=== PATIENT | male | born 1940 | race Caucasian/White ===

== ENCOUNTER 2021-02-09 15:43 | Day surgery (SDC) | payer MEDICARE, SELFPAY ==
[2021-02-09] VITALS (10 sets, daily range): BP systolic 130–184; BP diastolic 60–130; PULSE 74–90; RESP 14–18; TEMP 37.1–37.4; O2SAT 94–99
--- NOTE | 2021-02-09 16:05 | US_ITS ---
WS: [id number] ABDOMINAL ULTRASOUND LIMITED REASON FOR VISIT: hernia TECHNIQUE: Grayscale ultrasound examination of supraumbilical hernia. FINDINGS: 2 cm defect in the anterior abdominal wall. Presumed herniation of bowel through the defect. There is fluid in the hernia sac and the bowel is aperistaltic and very inhomogeneous in appearance. US/US abdomen limited [id number] IMPRESSION: Anterior abdominal hernia as above. The findings are very suggestive of comprom ise of the bowel contained within the hernia sac.
--- NOTE | 2021-02-09 16:46 | XR_ITS ---
WS: [id number] XR chest 1V portable [id number] REASON FOR EXAM: incarcerated hernia FINDINGS: The heart and mediastinum are within normal limits. Calcified granulomatous changes are seen bilaterally. No active pulmonary parenchymal or pleural disease. The bony thorax is intact. XR/XR chest 1V portable [id number] IMPRESSION: No acute chest abnormality.
--- NOTE | 2021-02-09 16:55 | W.ED.ABDPA2 ---
Documented by User: VENTURA Maria 02/09/21 16:57 HPI - Abdominal Pain General: Chief Complaint: Abdominal Pain Stated Complaint: HERNIA COMPLICATIONS Time Seen by Provider: 02/09/21 16:55 History of Present Illness: HPI narrative: Patient presents with pain above his umbilicus. Patient was seen by PCP today for hernia that was painful was sent to see Dr. Artie Alva was unable to reduce the hernia and was sent here for follow-up MD elicited complaint: abdominal pain Pertinent past history: none Onset (ago): day(s) Pain Consistency: constant Location: Other (Above the umbilicus) Severity: moderate Pain scale (0-10): 4 Quality: aching and sharp Radiation: none Associated Symptoms: Reports no associated symptoms; Denies chills, fever(s), nausea and vomiting Review of Systems Const: Denies: fever(s), chills or body aches Eyes: Denies: change in vision or blurry vision ENMT: Denies: throat pain or nasal congestion Card: Denies: chest pain or dyspnea on exertion Resp: Denies: dyspnea, productive cough or non-productive cough GI: Reports: other (Pain from hernia above his umbilicus); Denies: abdominal pain, nausea or vomiting : Denies: difficulty urinating Musc: Denies: extremity pain Skin/Breast: Denies: rash Neuro: Denies: headache(s) Psych: Denies: anxiety or depression Agustin/Lymph: Denies: easy bruising PFSH ED PFSH: Medical History Anxiety Benign prostatic hyperplasia with urinary retention GERD (gastroesophageal reflux disease) Hypertension Rheumatoid arthritis Surgical History Heel fracture bilateral from fall -- bilateral repair with hardware History of oral surgery teeth extraction History of tonsillectomy Social History Smoking and tobacco status: never smoked Alcohol intake: never Substance/Drug Use: never Marital status: / Marital status details: The patient's spouse around 2014 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 Physical Exam Const: COMMON NORMALS: no acute distress, average body habitus and patient oriented x3 HENMT: COMMON NORMALS: normocephalic HEAD & SCALP: normal to inspection and normocephalic FACE & SINUS: normal facial exam Eye: COMMON NORMALS: conjunctivae normal GENERAL EYE: appearance normal, both eyes and all related structures CONJUNCTIVA: Yes conjunctivae normal Neck/C-Spine: COMMON NORMALS: no JVD Chest: COMMONS NORMALS: normal inspection of the chest Resp: COMMON NORMALS: normal respiratory effort and clear to auscultation bilaterally AUSCULTATION: clear to auscultation bilaterally Cardio: COMMON NORMALS: no JVD, regular rate and regular rhythm RATE: regular rate RHYTHM: regular rhythm GI: PALPATION: Yes Tenderness to palpation present (GI) (Tender red area above umbilicus moderate sized hernia) and Yes Other GI palpation findings present (Hernia was not able to be reduced by Dr. Alva sent here) Extremity: COMMON NORMALS: normal to inspection and full ROM Neuro: COMMON NORMALS: patient oriented x3 Course Vital Signs: Vital signs: Vital Signs Temperature 98.7 F 02/09/21 20:53 Pulse Rate 81 02/09/21 20:53 Respiratory Rate 16 02/09/21 20:53 Blood Pressure 144/68 02/09/21 20:53 Pulse Oximetry 95 02/09/21 20:53 MDM - Abdominal Pain Lab Data: Labs: Lab Results 02/09/21 02/09/21 02/09/21 Range/Units 17:00 17:00 17:00 WBC 9.2 (4.0-10.0) 10^3/ uL RBC 4.95 (4.1-5.3) 10^6/u L Hgb 15.1 (11.7-16.6) g/dL Hct 45.3 (42.0-52.0) % MCV 91.5 (80-94) fL MCH 30.5 (28.0-34.0) pg MCHC 33.3 (30.0-36.0) g/dL RDW 12.2 (12.1-15.1) % Plt Count 160 (130-400) 10^3/c mm MPV 9.7 (7.4-10.4) fL Neut % (Auto) 80.3 % Lymph % (Auto) 10.3 % Blaine % (Auto) 6.4 % Eos % (Auto) 2.4 % Baso % (Auto) 0.3 % Neut # (Auto) 7.36 (1.8-7.7) 10^3/u L Lymph # (Auto) 1.0 (0.8-4.8) 10^3/u L Blaine # (Auto) 0.6 (0.2-0.9) 10^3/u L Eos # (Auto) 0.2 (0.0-0.8) 10^3/u L Baso # (Auto) 0.0 (0.0-0.1) 10^3/u L Nucleated RBC % (a uto) 0 % Nucleated RBCs # 0.0 /100WBC PT 13.10 (12.1-14.9) SECO NDS INR 0.96 (0.8-1.2) Sodium 135 L (136-145) mmol/L Potassium 3.8 (3.5-5.1) mmol/L Chloride 100 (98-107) mmol/L Carbon Dioxide 25 (22-29) mmol/L Anion Gap 13.8 (5-19) BUN 19 (8-23) mg/dL Creatinine 1.1 (0.7-1.2) mg/dL GFR Calculation Not Reportable Glucose 108 (65-115) mg/dL Calculated Osmolal ity 283 L (285-295) mOsm/k g Calcium 9.3 (8.5-10.5) mg/dL Total Bilirubin 0.8 (0.15-1.2) mg/dL AST 19 (0-40) U/L ALT 11 (0-41) U/L Alkaline Phosphata se 104 (40-130) IU/L Total Protein 7.6 (6.6-8.7) g/dL Albumin 4.3 (3.5-5.2) g/dL Globulin 3.3 (1.3-4.6) g/dL Urine Color (Yellow) Urine Appearance (CLEAR) Urine pH (5-7) Ur Specific Gravit y (1.005-1.030) Urine Protein (Negative) Urine Glucose (UA) (Normal) Urine Ketones (Negative) Urine Blood (Negative) Urine Nitrate (Negative) Urine Bilirubin (Negative) Urine Urobilinogen (Negative) mg/dL Ur Leukocyte Sanjana ase (Negative) Urine RBC (0-2) /hpf Urine WBC (0-5) /hpf Ur Squamous Epith Cells (0-5) /hpf Amorphous Sediment Urine Bacteria (NONE) /hpf 02/09/21 Range/Units 17:45 WBC (4.0-10.0) 10^3/ uL RBC (4.1-5.3) 10^6/u L Hgb (11.7-16.6) g/dL Hct (42.0-52.0) % MCV (80-94) fL MCH (28.0-34.0) pg MCHC (30.0-36.0) g/dL RDW (12.1-15.1) % Plt Count (130-400) 10^3/c mm MPV (7.4-10.4) fL Neut % (Auto) % Lymph % (Auto) % Blaine % (Auto) % Eos % (Auto) % Baso % (Auto) % Neut # (Auto) (1.8-7.7) 10^3/u L Lymph # (Auto) (0.8-4.8) 10^3/u L Blaine # (Auto) (0.2-0.9) 10^3/u L Eos # (Auto) (0.0-0.8) 10^3/u L Baso # (Auto) (0.0-0.1) 10^3/u L Nucleated RBC % (a uto) % Nucleated RBCs # /100WBC PT (12.1-14.9) SECO NDS INR (0.8-1.2) Sodium (136-145) mmol/L Potassium (3.5-5.1) mmol/L Chloride (98-107) mmol/L Carbon Dioxide (22-29) mmol/L Anion Gap (5-19) BUN (8-23) mg/dL Creatinine (0.7-1.2) mg/dL GFR Calculation Glucose (65-115) mg/dL Calculated Osmolal ity (285-295) mOsm/k g Calcium (8.5-10.5) mg/dL Total Bilirubin (0.15-1.2) mg/dL AST (0-40) U/L ALT (0-41) U/L Alkaline Phosphata se (40-130) IU/L Total Protein (6.6-8.7) g/dL Albumin (3.5-5.2) g/dL Globulin (1.3-4.6) g/dL Urine Color Yellow (Yellow) Urine Appearance Clear (CLEAR) Urine pH 6 (5-7) Ur Specific Gravit y 1.020 (1.005-1.030) Urine Protein Neg (Negative) Urine Glucose (UA) Norm (Normal) Urine Ketones 1+ H (Negative) Urine Blood Neg (Negative) Urine Nitrate Positive H (Negative) Urine Bilirubin Neg (Negative) Urine Urobilinogen Norm (Negative) mg/dL Ur Leukocyte Sanjana ase Negative (Negative) Urine RBC None (0-2) /hpf Urine WBC 0-4 H (0-5) /hpf Ur Squamous Epith Cells None (0-5) /hpf Amorphous Sediment Not Reportable Urine Bacteria 1+ H (NONE) /hpf Discharge Plan Discharge Patient Disposition: Admitted As Inpatient Condition: Stable Discharge Diet: Advance as tolerated Discharge Activity: Limit activity as instructed Sign Out Sign Out Data: Patient Sign Out occurred on 02/09/21 at 17:08. Patient's care was discussed, and care was transferred from to CONRADO Andre. 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 Comprehensive Documented by User: CONRADO Andre 02/10/21 03:05 HPI - Abdominal Pain General: Chief Complaint: Abdominal Pain Stated Complaint: HERNIA COMPLICATIONS Time Seen by Provider: 02/09/21 16:55 PFSH ED PFSH: Medical History Anxiety Benign prostatic hyperplasia with urinary retention GERD (gastroesophageal reflux disease) Hypertension Rheumatoid arthritis Surgical History Heel fracture bilateral from fall -- bilateral repair with hardware History of oral surgery teeth extraction History of tonsillectomy Social History Smoking and tobacco status: never smoked Alcohol intake: never Substance/Drug Use: never Marital status: / Marital status details: The patient's spouse around 2014 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 Moore to discuss patient case with him since he was seen by him at the clinic today. He told me that this patient walked into the clinic today and there is no scheduled appointment or anything set up with him. He was not notified by the PCP of patient coming in either. He examined patient and told him that he needs to be here in the ED because he is suspicious of an incarcerated umbilical hernia. Patient was sent here to the ED for further evaluation. Time: 18:09 Consultation #2: I contacted Dr. Soto the on-call general surgeon and told him about patient case. He accepted admission of patient and will be coming here to the ED to evaluate patient. Time: 18:16 Vital Signs: Vital signs: Vital Signs Temperature 98.7 F 02/09/21 20:53 Pulse Rate 81 02/09/21 20:53 Respiratory Rate 16 02/09/21 20:53 Blood Pressure 144/68 02/09/21 20:53 Pulse Oximetry 95 02/09/21 20:53 MDM - Abdominal Pain MDM Narrative: Medical decision making narrative: Patient is a 80-year-old male comes to the ED with umbilical hernia. Patient was sent here to the ED by Dr. Moore after he was seen at outpatient clinic. Dr. Moore sent patient over to the ED for further evaluation due to possible incarcerated hernia. Vikash is performed the initial history and physical exam. Exam findings showed a tender red umbilical hernia. Ultrasound of abdomen showed an anterior abdominal hernia with findings suggestive of incarceration. I contacted Dr. Soto and told about patient case. He then accepted admission of patient and will be taking him to surgery today. Lab Data: Attestation: I reviewed the patient's lab results. Labs: Lab Results 02/09/21 02/09/21 02/09/21 Range/Units 17:00 17:00 17:00 WBC 9.2 (4.0-10.0) 10^3/ uL RBC 4.95 (4.1-5.3) 10^6/u L Hgb 15.1 (11.7-16.6) g/dL Hct 45.3 (42.0-52.0) % MCV 91.5 (80-94) fL MCH 30.5 (28.0-34.0) pg MCHC 33.3 (30.0-36.0) g/dL RDW 12.2 (12.1-15.1) % Plt Count 160 (130-400) 10^3/c mm MPV 9.7 (7.4-10.4) fL Neut % (Auto) 80.3 % Lymph % (Auto) 10.3 % Blaine % (Auto) 6.4 % Eos % (Auto) 2.4 % Baso % (Auto) 0.3 % Neut # (Auto) 7.36 (1.8-7.7) 10^3/u L Lymph # (Auto) 1.0 (0.8-4.8) 10^3/u L Blaine # (Auto) 0.6 (0.2-0.9) 10^3/u L Eos # (Auto) 0.2 (0.0-0.8) 10^3/u L Baso # (Auto) 0.0 (0.0-0.1) 10^3/u L Nucleated RBC % (a uto) 0 % Nucleated RBCs # 0.0 /100WBC PT 13.10 (12.1-14.9) SECO NDS INR 0.96 (0.8-1.2) Sodium 135 L (136-145) mmol/L Potassium 3.8 (3.5-5.1) mmol/L Chloride 100 (98-107) mmol/L Carbon Dioxide 25 (22-29) mmol/L Anion Gap 13.8 (5-19) BUN 19 (8-23) mg/dL Creatinine 1.1 (0.7-1.2) mg/dL GFR Calculation Not Reportable Glucose 108 (65-115) mg/dL Calculated Osmolal ity 283 L (285-295) mOsm/k g Calcium 9.3 (8.5-10.5) mg/dL Total Bilirubin 0.8 (0.15-1.2) mg/dL AST 19 (0-40) U/L ALT 11 (0-41) U/L Alkaline Phosphata se 104 (40-130) IU/L Total Protein 7.6 (6.6-8.7) g/dL Albumin 4.3 (3.5-5.2) g/dL Globulin 3.3 (1.3-4.6) g/dL Urine Color (Yellow) Urine Appearance (CLEAR) Urine pH (5-7) Ur Specific Gravit y (1.005-1.030) Urine Protein (Negative) Urine Glucose (UA) (Normal) Urine Ketones (Negative) Urine Blood (Negative) Urine Nitrate (Negative) Urine Bilirubin (Negative) Urine Urobilinogen (Negative) mg/dL Ur Leukocyte Sanjana ase (Negative) Urine RBC (0-2) /hpf Urine WBC (0-5) /hpf Ur Squamous Epith Cells (0-5) /hpf Amorphous Sediment Urine Bacteria (NONE) /hpf 02/09/21 Range/Units 17:45 WBC (4.0-10.0) 10^3/ uL RBC (4.1-5.3) 10^6/u L Hgb (11.7-16.6) g/dL Hct (42.0-52.0) % MCV (80-94) fL MCH (28.0-34.0) pg MCHC (30.0-36.0) g/dL RDW (12.1-15.1) % Plt Count (130-400) 10^3/c mm MPV (7.4-10.4) fL Neut % (Auto) % Lymph % (Auto) % Blaine % (Auto) % Eos % (Auto) % Baso % (Auto) % Neut # (Auto) (1.8-7.7) 10^3/u L Lymph # (Auto) (0.8-4.8) 10^3/u L Blaine # (Auto) (0.2-0.9) 10^3/u L Eos # (Auto) (0.0-0.8) 10^3/u L Baso # (Auto) (0.0-0.1) 10^3/u L Nucleated RBC % (a uto) % Nucleated RBCs # /100WBC PT (12.1-14.9) SECO NDS INR (0.8-1.2) Sodium (136-145) mmol/L Potassium (3.5-5.1) mmol/L Chloride (98-107) mmol/L Carbon Dioxide (22-29) mmol/L Anion Gap (5-19) BUN (8-23) mg/dL Creatinine (0.7-1.2) mg/dL GFR Calculation Glucose (65-115) mg/dL Calculated Osmolal ity (285-295) mOsm/k g Calcium (8.5-10.5) mg/dL Total Bilirubin (0.15-1.2) mg/dL AST (0-40) U/L ALT (0-41) U/L Alkaline Phosphata se (40-130) IU/L Total Protein (6.6-8.7) g/dL Albumin (3.5-5.2) g/dL Globulin (1.3-4.6) g/dL Urine Color Yellow (Yellow) Urine Appearance Clear (CLEAR) Urine pH 6 (5-7) Ur Specific Gravit y 1.020 (1.005-1.030) Urine Protein Neg (Negative) Urine Glucose (UA) Norm (Normal) Urine Ketones 1+ H (Negative) Urine Blood Neg (Negative) Urine Nitrate Positive H (Negative) Urine Bilirubin Neg (Negative) Urine Urobilinogen Norm (Negative) mg/dL Ur Leukocyte Sanjana ase Negative (Negative) Urine RBC None (0-2) /hpf Urine WBC 0-4 H (0-5) /hpf Ur Squamous Epith Cells None (0-5) /hpf Amorphous Sediment Not Reportable Urine Bacteria 1+ H (NONE) /hpf Imaging Data ^: US: Attestation: I personally reviewed and interpreted this imaging study as follows: Radiologist's impression: [address] [address] Ultrasound Report Signed Patient: Deric Chavez Unit #: [id number] : 1940 Age/Sex: 80 / M ADM Date: 02/09/21 Loc: ER Room/Bed: Attending Dr: Ordering Provider/Ordering MD: Brian Suh , [facility] Date of Service: 02/09/21 Procedure(s): US abdomen limited 13890 Accession Number(s): [id number] Report Number: [id number] WS: [id number] ABDOMINAL ULTRASOUND LIMITED REASON FOR VISIT: hernia TECHNIQUE: Grayscale ultrasound examination of supraumbilical hernia. FINDINGS: 2 cm defect in the anterior abdominal wall. Presumed herniation of bowel through the defect. There is fluid in the hernia sac and the bowel is aperistaltic and very inhomogeneous in appearance. US/US abdomen limited [id number] IMPRESSION: Anterior abdominal hernia as above. The findings are very suggestive of compromise of the bowel contained within the hernia sac. Dictated By: Jimbo Smith Jr, MD Signed By: Jimbo Smith Jr, MD Signed Date/Time: 02/09/21 1631 DD/ 1625 Discharge Plan Discharge Patient Disposition: Admitted As Inpatient Condition: Stable Discharge Diet: Advance as tolerated Discharge Activity: Limit activity as instructed Sign Out Sign Out Data: Patient Sign Out occurred on 02/09/21 at 17:08. Patient's care was discussed, and care was transferred from to CONRADO Andre. 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
[2021-02-09 17:07] LABS: Basophils % 0.3 %; Eosinophils # 0.2 10^3/uL (0.0-0.8); Eosinophils % 2.4 %; Hematocrit 45.3 % (42.0-52.0); Hemoglobin 15.1 g/dL (11.7-16.6); Lymphocytes % 10.3 %; Mean Corpuscular HGB Conc 33.3 g/dL (30.0-36.0); Mean Corpuscular Hemoglobin 30.5 pg (28.0-34.0); Mean Corpuscular Volume 91.5 fL (80-94); Mean Platelet Volume 9.7 fL (7.4-10.4); Monocytes # 0.6 10^3/uL (0.2-0.9); Monocytes % 6.4 %; Neutrophils # 7.36 10^3/uL (1.8-7.7); Neutrophils % 80.3 %; Nucleated Red Blood Cells % 0 %; Platelet Count 160 10^3/cmm (130-400); Red Blood Count 4.95 10^6/uL (4.1-5.3); Red Cell Distribution Width 12.2 % (12.1-15.1); White Blood Count 9.2 10^3/uL (4.0-10.0)
[2021-02-09 17:28] LABS: INR 0.96 (0.8-1.2)
[2021-02-09 17:33] LABS: Alanine Aminotransferase 11 U/L (0-41); Albumin Level 4.3 g/dL (3.5-5.2); Alkaline Phosphatase 104 IU/L (40-130); Anion Gap 13.8 (5-19); Aspartate Amino Transferase 19 U/L (0-40); Blood Urea Nitrogen 19 mg/dL (8-23); Calcium 9.3 mg/dL (8.5-10.5); Carbon Dioxide 25 mmol/L (22-29); Chloride 100 mmol/L (98-107); Globulin 3.3 g/dL (1.3-4.6); Glucose 108 mg/dL (65-115); Osmolality Calculated 283 mOsm/kg (285-295); Potassium 3.8 mmol/L (3.5-5.1); Sodium 135 mmol/L (136-145); Total Bilirubin 0.8 mg/dL (0.15-1.2); Total Protein 7.6 g/dL (6.6-8.7)
[2021-02-09 18:00] LABS: Add Urine Microscopic? YES; Bilirubin Urine Neg (Negative); Blood Urine Neg (Negative); Glucose Urine UA Norm (Normal); Ketones Urine 1+ (Negative); Leukocyte Esterase Urine Negative (Negative); Nitrate Urine Positive (Negative); Protein Urine Neg (Negative); Urine Appearance Clear (CLEAR); Urine Color Yellow (Yellow); Urobilinogen Urine Norm (Negative); WBC Urine 0-4 /hpf (0-5); pH Urine 6 (5-7)
[2021-02-09 18:01] LABS: Bacteria Urine 1+ /hpf
--- NOTE | 2021-02-09 18:37 | PM.HP ---
Providers/Chief Complaint Admitting Physician: General Surgery Carlos Soto MD Primary Care Provider: Zach Byrd MD Chief Complaint: HERNIA COMPLICATIONS History of Present Illness Deric Chavez is a 80 year old male who says he has known about a small hernia above the umbilicus for as long as 50 or 60 years. It has never caused him trouble and it sounds like it was always reducible until recently. He says he has been getting sharp pains in the area over the last couple of weeks. Yesterday he awoke and says that he had a mass there about the size of a chicken egg and it was painful. He had developed some light erythema over the area and had a hard time sleeping last night as a result. He went to see his primary care physician this morning. Dr. Byrd was actually out of town but he says one of his partners saw him and diagnosed him with an incarcerated hernia. The patient went to Dr. Moore's office and attempts at reduction were unsuccessful. The patient was sent to the emergency room and eventually I was called as the surgeon on-call. The emergency room did perform an ultrasound of the area which revealed what they thought was a 2 cm hernia defect in the abdominal wall. The radiologist was concerned that there was bowel within the defect. The patient says that he ate eggs and pollack this morning around 10 AM. He has not had any nausea or vomiting. He had not had a bowel movement for several days but ended up having a bowel movement around midday before going to his PCP's office. He has not had any fevers but felt as if he had some chills at one point. He says he continues to pass flatus. Review of Systems General: Reports: 10 or more systems reviewed and unremarkable except in HPI and below Const: Denies: fever(s) GI: Reports: abdominal pain; Denies: nausea Medications/Allergies Home Medications Medication Instructions Recorded Confirmed Last Taken Type finasteride 5 mg tablet 5 mg PO DAILY #90 tab 06/10/20 02/09/21 02/09/21 Rx Acidophilus 1 tab PO DAILY@0700 02/09/21 02/09/21 Unknown History B-complex with vitamin C [Vitamin 1 tab PO DAILY@0700 02/09/21 02/09/21 02/08/21 History B and C] Bradshaw 3 1 tab PO DAILY@0700 02/09/21 02/09/21 02/08/21 History Vitamin D3 1 tab PO DAILY@0700 02/09/21 02/09/21 02/08/21 History alprazolam 0.25 mg tablet 0.25 mg PO TID PRN 02/09/21 02/09/21 02/08/21 History aspirin 81 mg tablet,delayed 81 mg PO DAILY@0700 02/09/21 02/09/21 02/09/21 History release benazepril 40 mg tablet 40 mg PO DAILY@0700 02/09/21 02/09/21 02/09/21 History folic acid 1 mg tablet 1 mg PO DAILY 02/09/21 02/09/21 Unknown History loratadine 10 mg capsule 10 mg PO DAILY@0700 02/09/21 02/09/21 02/09/21 History magnesium 200 mg tablet 200 mg PO DAILY@0700 02/09/21 02/09/21 02/09/21 History methotrexate 2.5 mg/mL oral See Rx Instructions .ROUTE .COMPLEX 02/09/21 02/09/21 Unknown History solution metoprolol tartrate 50 mg tablet 50 mg PO DAILY@0700 02/09/21 02/09/21 02/09/21 History omeprazole 40 mg capsule,delayed 40 mg PO DAILY@0700 02/09/21 02/09/21 02/09/21 History release tamsulosin 0.4 mg capsule 0.4 mg PO DAILY@0700 02/09/21 02/09/21 02/09/21 History vitamin E 1 tab PO DAILY@0700 02/09/21 02/09/21 02/08/21 History Allergies Allergy/AdvReac Type Severity Reaction Status Date / Time No Known Allergies Allergy Verified 06/10/20 12:04 PFSH Acute PFSH: Medical History (Updated 02/09/21 @ 19:03 by Carlos Soto MD) Anxiety Benign prostatic hyperplasia with urinary retention GERD (gastroesophageal reflux disease) Hypertension Rheumatoid arthritis Surgical History (Updated 02/09/21 @ 19:04 by Carlos Soto MD) Heel fracture bilateral from fall -- bilateral repair with hardware History of oral surgery teeth extraction History of tonsillectomy Social History (Updated 02/09/21 @ 18:41 by Carlos Soto MD) Smoking and tobacco status: never smoked Alcohol intake: never Substance/Drug Use: never Marital status: / Marital status details: The patient's spouse around 2014 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 He does not appear to be in any acute distress and is sitting up in a chair. The pupils seem equal. No carotid bruits are heard. The lungs are clear anteriorly. The heart is regular. The abdomen is mildly obese and reveals a slight protrusion above the umbilicus with a surrounding area of light erythema measuring perhaps 10 cm in greatest diameter. There is a very firm mass underneath the center of this and it is tender to palpation. Bowel sounds do seem present throughout the abdominal cavity. The extremities reveal no edema. Neurologically the patient appears to be grossly intact. Data : 02/09/21 17:00 02/09/21 17:00 US: Radiologist's impression: Ultrasound of abdomen 02/09/2021 FINDINGS: 2 cm defect in the anterior abdominal wall. Presumed herniation of bowel through the defect. There is fluid in the hernia sac and the bowel is aperistaltic and very inhomogeneous in appearance. A&P Assessment and plan (1) Incarcerated ventral hernia: The patient clearly has an incarcerated ventral hernia. It is difficult to know what exactly is in here on examination alone, but the radiologist is somewhat concerned there may be bowel present. The patient does not seem to be obviously obstructed, however. He does have some erythema surrounding the area which may be more of a pressure phenomenon, but an early infection certainly cannot be ruled out. I discussed hernias and hernia reduction and repairs with the patient. Risks of surgery were gone over. He seems to understand and would like to proceed with an urgent reduction and repair of his incarcerated ventral hernia. We have already discussed postoperative activity limitations for up to 6 weeks. Status: Acute Attestations Medical Necessity Statement*: I told the patient that depending upon what is incarcerated in the hernia and what its condition is, it may be possible that we can fix this and even send him home later tonight, which was an attractive option for him. For now, I am going to place him in outpatient status in the event that turns out to be the case. Coding Level of Care Code Acute [employer] for [employer] Diagnoses Incarcerated ventral hernia K43.6
[2021-02-09] MEDS: metroNIDAZOLE IV 500 MG/100 ML PREMIX 100 MG IV (18:47)
--- NOTE | 2021-02-09 19:15 | SUR.OPER ---
1900 2gms ancef finished infusing from ER by Destiny Yeung CRNA. 1914 500MG FLAGYL finished infusing from ER by Destiny Yeung CRNA
--- NOTE | 2021-02-09 19:22 | PC.NURSE ---
Per Dr. Soto stopped IV antibiotics until after surgery.
--- NOTE | 2021-02-09 19:27 | P.ANESASSM_ITS ---
Pre-Anesthetic Assessment Pre-Anesthetic Assessment: Height/Weight: Height 1.68 m Temp Pulse Resp BP Pulse Ox 98.7 F 75 14 167/130 96 02/09/21 15:57 02/09/21 18:50 02/09/21 18:50 02/09/21 18:50 02/09/21 18:50 Proposed Procedure: Operation Date: 02/09/21 18:55 Proposed Procedures p Incisional Hernia Repair(Not Applicable) - Carlos Soto MD Was Beta Susu taken within 24 hours: Yes Was Clonidine taken within 24 hours: N/A Social: Social History: No alcohol and No tobacco Exam: Pre-Anes Outpt Exam: alert, oriented x 3, clear to auscultation bilaterally and regular rate & rhythm Airway: Submandibular: WNL Cervical ROM: WNL MP: 2 Dentition: False CV/HEM: CV/HEM: HTN GI: GI: GERD Comments: Incarcerated hernia Metabolic: Metabolic: Morbid obesity Musc/skel: Musc/skel: Neuropsych: Neuropsych: Anxiety Anesthetic Plan: ASA status: 3E Anesthesia: General (RSI) Risk of > 500 ml blood loss (7ml/kg in children): No Meds/Allergies Current Medications: Current Medications Generic Name Dose Route Start Last Admin Trade Name Freq PRN Reason Stop Dose Admin Cefazolin Sodium/D extrose 2 gm in 50 mls @ 100 mls/hr 02/09/21 19:30 02/09/21 19:08 Kefzol IV 02/09/21 19:59 0 mls/hr CEPHALOMETRIC TRACER ONE Infusion Protocol Metronidazole 500 mg in 100 mls @ 100 mls/hr 02/09/21 19:30 02/09/21 19:08 Flagyl Iv IV 02/09/21 20:29 0 mls/hr CEPHALOMETRIC TRACER ONE Infusion PFSH Anesthesia PFSH: Medical History (Updated 02/09/21 @ 19:03 by Carlos Soto MD) Anxiety Benign prostatic hyperplasia with urinary retention GERD (gastroesophageal reflux disease) Hypertension Rheumatoid arthritis Surgical History (Updated 02/09/21 @ 19:04 by Carlos Soto MD) Heel fracture bilateral from fall -- bilateral repair with hardware History of oral surgery teeth extraction History of tonsillectomy Social History (Updated 02/09/21 @ 18:41 by Carlos Soto MD) Smoking and tobacco status: never smoked Alcohol intake: never Substance/Drug Use: never Marital status: / Marital status details: The patient's spouse around 2014 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 CBC & Chem 7: 02/09/21 17:00 02/09/21 17:00 Other Labs: Laboratory Results - last 48 hr 02/09/21 02/09/21 02/09/21 17:00 17:00 17:00 WBC 9.2 RBC 4.95 Hgb 15.1 Hct 45.3 MCV 91.5 MCH 30.5 MCHC 33.3 RDW 12.2 Plt Count 160 MPV 9.7 Neut % (Auto) 80.3 Lymph % (Auto) 10.3 [place] % (Auto) 6.4 Eos % (Auto) 2.4 Baso % (Auto) 0.3 Neut # (Auto) 7.36 Lymph # (Auto) 1.0 [place] # (Auto) 0.6 Eos # (Auto) 0.2 Baso # (Auto) 0.0 Nucleated RBC % (auto) 0 Nucleated RBCs # 0.0 PT 13.10 INR 0.96 Sodium 135 L Potassium 3.8 Chloride 100 Carbon Dioxide 25 Anion Gap 13.8 BUN 19 Creatinine 1.1 GFR Calculation Not Reportable Glucose 108 Calculated Osmolality 283 L Calcium 9.3 Total Bilirubin 0.8 AST 19 ALT 11 Alkaline Phosphatase 104 Total Protein 7.6 Albumin 4.3 Globulin 3.3 Urine Color Urine Appearance Urine pH Ur Specific [place] Urine Protein Urine Glucose (UA) Urine Ketones Urine Blood Urine Nitrate Urine Bilirubin Urine Urobilinogen Ur Leukocyte Esterase Urine RBC Urine WBC Ur Squamous Epith Cells Amorphous Sediment Urine Bacteria 02/09/21 17:45 WBC RBC Hgb Hct MCV MCH MCHC RDW Plt Count MPV Neut % (Auto) Lymph % (Auto) [place] % (Auto) Eos % (Auto) Baso % (Auto) Neut # (Auto) Lymph # (Auto) [place] # (Auto) Eos # (Auto) Baso # (Auto) Nucleated RBC % (auto) Nucleated RBCs # PT INR Sodium Potassium Chloride Carbon Dioxide Anion Gap BUN Creatinine GFR Calculation Glucose Calculated Osmolality Calcium Total Bilirubin AST ALT Alkaline Phosphatase Total Protein Albumin Globulin Urine Color Yellow Urine Appearance Clear Urine pH 6 Ur Specific [place] 1.020 Urine Protein Neg Urine Glucose (UA) Norm Urine Ketones 1+ H Urine Blood Neg Urine Nitrate Positive H Urine Bilirubin Neg Urine Urobilinogen Norm Ur Leukocyte Esterase Negative Urine RBC None Urine WBC 0-4 H Ur Squamous Epith Cells None Amorphous Sediment Not Reportable Urine Bacteria 1+ H Cardiac Studies: No Data to Display
--- NOTE | 2021-02-09 20:15 | PM.OP ---
Operative Report Date of procedure: February 09, 2021 Pre-op Diagnosis: Incarcerated ventral hernia. Post-op diagnosis: same Procedure Done: Reduction and repair of incarcerated ventral hernia. Specimens removed/disposition: Incarcerated hernia sac contents. Surgeon: Carlos Soto Anesthesia: General Estimated blood loss (mL): 5 Complications: None. Condition: stable Disposition: PACU Procedure: The patient was brought to the operating room and was placed in a supine position on the operating room table. General endotracheal anesthesia was induced. The abdomen was prepped and draped in a sterile fashion. A combination of 1% lidocaine with 1 to 100,000 parts epinephrine and 0.5% bupivacaine was used for local/postoperative anesthesia throughout the procedure. A transverse incision was carried out above the level of the umbilicus over the incarcerated hernia. Cautery was used to divide the subcutaneous tissue and the hernia sac was quickly identified. This was freed from the surrounding subcutaneous tissue and had the appearance that had been in place for a while given the presence of chronic adhesions to the sac itself. The hernia sac and contents appeared to be somewhat dusky and at first it appeared as if the patient may have some necrotic bowel within the sac. The defect was elongated superiorly to gain more mobilization of the contents within the defect. The sac was opened and eventually it was found that this was probably a hematoma filled sac at the tip of some omentum. The omentum was divided using cautery and the apparent hematoma sac was eventually completely excised and was sent for pathology. No bowel was found within the hernia defect. The wound and tissue just underneath the abdominal wall was extensively irrigated using saline. The midline tissue was then closed vertically using multiple interrupted sutures of 0 Prolene. This was carried out down to and past the hernia defect so that all of the tissue had been closed vertically. The wound was again irrigated with saline. The dermis was brought together using multiple inverted interrupted sutures of 3-0 Vicryl and the skin was approximated using a running subcuticular suture of 3-0 Vicryl. Benzoin and Steri-Strips were placed over the incision. Note was made that the erythematous appearance to the surrounding skin had completely disappeared after the hernia had been repaired and therefore appeared this was going to represent more of a pressure phenomenon preoperatively as opposed to infection. A sterile dressing was applied and the patient was taken to the recovery room in stable condition postoperatively.
--- NOTE | 2021-02-09 20:33 | ANE.PACU2 ---
Inpatient post-anesthesia follow up: Airway intact: Yes Vital signs: Temperature 98.7 F Pulse Rate [Monito r] 74 Pulse Rate 75 Respiratory Rate 14 Blood Pressure [Ri ght Arm] 184/64 Blood Pressure 167/130 Pulse Oximetry 96 Oxygen Delivery Me thod Room Air Oxygen Flow Rate Fraction of Inspir ed Oxygen Hydration adequate: Yes Nausea and vomiting: No Pain level: 3 Additional Comments: Sedated
--- NOTE | 2021-02-09 20:34 | P.PCN_ITS ---
PACU note PACU note: VSS, Good respiratory effort, report to SUPERVISOR PROP MAKING Post-Anesthesia Exam: awake
--- NOTE | 2021-02-09 20:34 | PM.PACU ---
PACU note PACU note: VSS, Good respiratory effort, report to COOK APPRENTICE Post-Anesthesia Exam: awake
[2021-02-09] MEDS: HYDROcodone-acetaminophen 5-325 mg Tablet 2 TAB PO (21:00)
== END 2021-02-09 21:15 | disposition home or self-care (01) ==
LOC: ER 17:08 → OPS 18:40
PROVIDERS: Nurse Practitioner Family; Emergency Provider Physician Assistant; PCP Family Medicine; Visit Provider Surgery
PROC: 0WQF0ZZ Repair Abdominal Wall, Open Approach (ICD-10-PCS; CPT 49561; principal; 2021-02-09 18:55)
DX: K43.6 Other and unspecified ventral hernia with obstruction, without gangrene (principal); I10 Essential (primary) hypertension; E66.01 Morbid (severe) obesity due to excess calories; M06.9 Rheumatoid arthritis, unspecified; N40.1 Benign prostatic hyperplasia with lower urinary tract symptoms; R33.8 Other retention of urine
CPT/HCPCS: 49561; 12345; 71045; 76705; 80053; 81001; 85025; 85610; 88302; 96361; 96365; 96367; 99285; J0330; J0690; J1100; J2405; J2704; J2710; J3010; J3490; S0030

== ENCOUNTER 2022-02-11 12:14 | Emergency (ER) | payer MEDICARE, SELFPAY ==
[2022-02-11 12:25] VITALS: BP 170/73; PULSE 91; RESP 16; TEMP 36.4; O2SAT 96; BMI 31.3
[2022-02-11 15:23] VITALS: BP 162/66; PULSE 72; RESP 20; O2SAT 98
--- NOTE | 2022-02-11 15:29 | ECG_ITS ---
[facility] Test Date: 2022-02-11 Pat Name: Deric Chavez Department: Room: Gender: Male Head Housekeeper: : 1940 Requested By: Lena Fitzgerald Order Number: [id number] Hesham MD: Brigette Tejada M.D. Measurements Intervals [place] Rate: 65 P: 59 AL: 196 QRS: 19 QRSD: 85 T: 19 QT: 398 QTc: 416 Interpretive Statements SINUS RHYTHM WITH SINUS ARRHYTHMIA No previous ECG available for comparison Poor R wave progression Electronically Signed On 02-11-2022 21:51:58 CDT by Brigette Tejada M.D. [id number]
--- NOTE | 2022-02-11 15:29 | W.ED.GENADLT ---
HPI - General Adult General: Chief complaint: General Medical Stated complaint: stroke symptoms Time Seen by Provider: 02/11/22 14:54 History of Present Illness: Patient is an 81-year-old male with a history of GERD, BPH, hypertension, rheumatoid arthritis who presents the emergency room with multiple complaints today. Patient tells me that for the last 3 weeks he has had funny walking. Patient denies any focal weakness, slurring of speech or facial droop, diplopia focal arm or leg weakness. Denies any vertigo, lightheadedness, dysphagia or dysphonia. Patient also tells me that for the last year, he has had chronic back pain which caused him to not be able to sleep at night. Patient denies any fall or trauma or injury recently. Patient tells me that earlier today, he noticed that his blood pressure was elevated at episodes of palpitation lasting for few seconds at a time. Last week, patient also had symptoms of diarrhea. No complaints of abdominal pain, nausea/vomiting, chest pain, exertional chest pain, pleuritic chest pain, IV drug use, saddle anesthesia, bowel or bladder problem or lower extremity weakness. In addition, patient tells me that he has been burning wood at home for the last few weeks due to the cold weather and has had a headache. Onset: chronic Duration:ongoing Location:home Severity:moderate Associated symptoms: Deny chest pain, dyspnea, nausea, rash, palpitations or vomiting Review of Systems Const: Reports: other (insomnia); Denies: fever(s) or chills Eyes: Denies: change in vision ENMT: Denies: mouth pain Card: Denies: chest pain or palpitations Resp: Denies: dyspnea or non-productive cough GI: Denies: abdominal pain, nausea, vomiting or diarrhea : Denies: dysuria Musc: Reports: other (+back pain); Denies: extremity pain Skin/Breast: Denies: rash or new lesions Neuro: Reports: other (+gait problems, +headache); Denies: weakness in extremities Psych: Reports: other (Normal mood) Agustin/Lymph: Denies: easy bruising PFS ED PFSH: Medical History Anxiety Benign prostatic hyperplasia with urinary retention GERD (gastroesophageal reflux disease) Hypertension Rheumatoid arthritis Surgical History Heel fracture bilateral from fall -- bilateral repair with hardware History of oral surgery teeth extraction History of tonsillectomy Social History Smoking and tobacco status: never smoked Alcohol intake: never Marital status: / Marital status details: The patient's spouse around 2014 Current occupation: [employer] Physical Exam Const: COMMON NORMALS: alert HENMT: COMMON NORMALS: atraumatic HEAD & SCALP: atraumatic MOUTH: moist mucous membranes not abnormal Eye: COMMON NORMALS: EOMs intact bilaterally and conjunctivae normal CONJUNCTIVA: Yes conjunctivae normal Neck/C-Spine: COMMON NORMALS: full ROM and supple Resp: COMMON NORMALS: normal respiratory effort and clear to auscultation bilaterally AUSCULTATION: clear to auscultation bilaterally Cardio: COMMON NORMALS: regular rate RATE: regular rate GI: COMMON NORMALS: Soft to palpation and non-tender PALPATION: Yes Soft to palpation Extremity: COMMON NORMALS: full ROM Neuro: SENSORIUM/ORIENTATION: Yes alert MOTOR EXAM: No Abnormal motor strength present and Other motor observations present (no focal motor deficits) OTHER: Mental status? Awake, alert, and oriented to self, year, month, location, and situation.? Following simple axial and appendicular commands.? Has appropriate fund of knowledge, comprehension, and insight.? Able to recall and understands pertinent aspects of medical history and current treatment status.? ? Language? Speech is fluent without word-finding difficulties.? Intact naming, expression, reception interviewer, and repetition.? ? Cranial nerves? 2,3,4,6: PERRL, EOMI with no nystagmus. 5: Intact sensation to light touch, symmetric? 7: Smile symmetrical, no facial droop.? 8: Hearing grossly intact.? 9,10: Normal palate movement.? 11: Normal strength in trapezius bilaterally 12: Tongue protrudes midline.? ? Motor examination? Normal bulk & tone. Strength as follows (R/L): Delts (5/5), Biceps (5/5), Triceps (5/5), Wrist ext (5/5), hip flexors (5/5), plantarflexors (5/5), dorsiflexors (5/5). ? Sensation? Light Touch: Grossly intact and equal in upper and lower extremities bilaterally? Romberg: Negative.? Distal joint position sense intact ? Coordination? Ortfvs-wc-mhyi-finger movements intact without dysmetria or past-pointing.? Rapid fingertaps: preserved amplitude without decriment.? No tremor, myoclonus or truncal ataxia.? ? Gait/stance? Steady, normal narrow base gait with appropriate arm swing and turning.? Tandem gait without hesitation or loss of balance. Psych: COMMON NORMALS: speech normal SPEECH: Yes normal speech MOOD & AFFECT: Yes euthymic mood Course Vital Signs: Vital signs: Vital Signs Temperature 97.6 F 02/11/22 12:25 Pulse Rate 74 02/11/22 19:30 Respiratory Rate 18 02/11/22 19:30 Blood Pressure 160/80 02/11/22 19:30 Pulse Oximetry 96 02/11/22 19:30 MDM - General Adult Medical Decision Making 81-year-old male with a history of GERD, hypertension, rheumatoid arthritis presenting to the emergency room with multiple complaints including insomnia, gait issues, palpitation and elevated blood pressure. In the emergency room, patient had a blood pressure of 166/80. Neuro exam is intact. Patient had no gait instability. Patient able to walk tandem gait without any difficulty. Patient was placed on Holter monitor and observed for 3 hours without any signs of dysrhythmia. Patient has not had any more episodes of palpitation in the emergency room. Patient had troponin x2 within normal limit. Delta troponin less than 5. EKG not show any signs of high degree block, or any lethal dysrhythmia. CT head is negative for any acute findings. Patient tells me that he hoyt wood at home in the last few weeks. I order an ABG to evaluate for carbon monoxide which is within normal limit. I have given patient close follow-up with patient's primary care provider. Given intact neurological exam, I do not suspect there is an acute neurological pathology at this time. Patient has not demonstrate any gait instability. I have given patient follow-up with cardiology for palpitation symptoms. As patient does not have any chest pain, do not suspect that he symptoms are related to ACS or other emergent pathologies at this time. Patient has had chronic back pain for over a year. Patient does not exhibit any signs of cord compression as he mcrae snot have any midline tenderness, saddle anesthesia, bowel or bladder problems, or lower extremity weakness or numbness. I have given patient follow up with our counter caser to be seen by our outpatient PCP for close followup. Patient aware of a call from our counter caser to schedule for appointment(s) and verbalizes understanding of the importance of following up. Rx melatonin PRN insomnia, tylenol PRN pain back Disposition: Discharge. Patient counseled regarding diagnostic impression, treatment plan. Patient given ED strict return precautions to return for continuation, worsening, or development of new symptoms. Instructed to f/u w/ PCP regarding symptoms today. Patient verbalized understanding. Lab Data : 02/11/22 16:19 02/11/22 15:[address] 02/11/22 15:31 IMPRESSION: Negative for intracranial hemorrhage or mass effect Laboratory Results WBC 9.3 10^3/uL (4.0-10.0) 02/11/22 16:19 Corrected WBC Cancelled 02/11/22 15:45 RBC 4.71 10^6/uL (4.1-5.3) 02/11/22 16:19 Hgb 14.4 g/dL (11.7-16.6) 02/11/22 16:19 Hct 43.0 % (42.0-52.0) 02/11/22 16:19 MCV 91.3 fl (80-94) 02/11/22 16:19 MCH 30.6 pg (28.0-34.0) 02/11/22 16:19 MCHC 33.5 g/dL (30.0-36.0) 02/11/22 16:19 RDW 11.8 % (12.1-15.1) L 02/11/22 16:19 Plt Count 203 10^3/cmm (130-400) 02/11/22 16:19 MPV 10.4 fL (7.4-10.4) 02/11/22 16:19 Gran % Cancelled 02/11/22 15:45 Neut % (Auto) 77.1 % 02/11/22 16:19 Lymph % (Auto) 14.8 % 02/11/22 16:19 [place] % (Auto) 6.6 % 02/11/22 16:19 Eos % (Auto) 0.9 % 02/11/22 16:19 Baso % (Auto) 0.3 % 02/11/22 16:19 Neut # (Auto) 7.18 10^3/uL (1.8-7.7) 02/11/22 16:19 Lymph # (Auto) 1.4 10^3/uL (0.8-4.8) 02/11/22 16:19 [place] # (Auto) 0.6 10^3/uL (0.2-0.9) 02/11/22 16:19 Eos # (Auto) 0.1 10^3/uL (0.0-0.8) 02/11/22 16:19 Baso # (Auto) 0.0 10^3/uL (0.0-0.1) 02/11/22 16:19 Absolute Gran (auto) Cancelled 02/11/22 15:45 Nucleated RBC % (auto) 0 % 02/11/22 16:19 Nucleated RBCs # 0.0 /100WBC 02/11/22 16:19 Specimen Type Arterial 02/11/22 18:32 Sample Site Radial, left 02/11/22 18:32 ABG pH 7.44 (7.35-7.45) 02/11/22 18:32 ABG pCO2 36.8 mmHg (35-45) 02/11/22 18:32 ABG pO2 73.5 mmHg (80.0-100.0) L 02/11/22 18:32 ABG HCO3 25.0 mmol/L (22-26) 02/11/22 18:32 ABG O2 Saturation 94.4 02/11/22 18:32 ABG Base Excess 1.1 mmol/L (-2.0-2.0) 02/11/22 18:32 Antonio Test Pos 02/11/22 18:32 A-a O2 Gradient 3.8 mmHg (5-10) L 02/11/22 18:32 Hematocrit 44.7 % (42-52) 02/11/22 18:32 Hgb O2 Saturation 94.2 % (95-100) L 02/11/22 18:32 Carboxyhemoglobin < 0.0 %THgb (0.4-20.1) L 02/11/22 18:32 Methemoglobin 0.5 % (0.4-1.5) 02/11/22 18:32 Total Hemoglobin 14.6 g/dL (14-18) 02/11/22 18:32 Sodium 140.0 mmol/L (131-143) 02/11/22 18:32 Potassium 4.0 mmol/L (3.5-5.0) 02/11/22 18:32 Glucose 97.0 mg/dL (70-115) 02/11/22 18:32 Ionized Calcium 1.2 mmol/L (1.1-1.4) 02/11/22 18:32 O2 Delivery Device Room air 02/11/22 18:32 FiO2 21.0 % 02/11/22 18:32 Mental Telepathist ID Monro 02/11/22 18:32 Sodium 138 mmol/L (136-145) 02/11/22 15:45 Potassium 4.6 mmol/L (3.5-5.1) 02/11/22 15:45 Chloride 105 mmol/L (98-107) 02/11/22 15:45 Carbon Dioxide 22 mmol/L (22-29) 02/11/22 15:45 Anion Gap 15.6 (5-19) 02/11/22 15:45 BUN 16 mg/dL (8-23) 02/11/22 15:45 Creatinine 0.9 mg/dL (0.7-1.2) 02/11/22 15:45 GFR Calculation Not Reportable 02/11/22 15:45 Glucose 93 mg/dL (65-115) 02/11/22 15:45 Calculated Osmolality 287 mOsm/kg (285-295) 02/11/22 15:45 Calcium 9.5 mg/dL (8.5-10.5) 02/11/22 15:45 Troponin T Baseline 7 ng/L (0-15) 02/11/22 15:45 Troponin T 120 Minute 9.72 ng/L (0-15) 02/11/22 18:15 Delta Troponin T 2.72 ABS# (0-10) 02/11/22 18:15 Imaging Data Other Imaging: Radiologist's impression: Launch?Image [facility] [address] [place] [address] CT Scan Report Signed Patient: Deric Chavez Unit #: [id number] : 1940 Age/Sex: 81 / M ADM Date: 02/11/22 Loc: ER Room/Bed: Attending Dr: Ordering Provider/Ordering MD: Lena Fitzgerald MD Date of Service: 02/11/22 Procedure(s): CT head wo con* [id number] Accession Number(s): [id number] Report Number: [id number] PROCEDURE INFORMATION: Exam: CT Head Without Contrast Exam date and time: 02/11/2022 3:57 PM Age: 81 years old Clinical indication: Pain; Headache not specified TECHNIQUE: Imaging protocol: Computed tomography of the head without contrast. Radiation optimization: All CT scans at this facility use at least one of these dose optimization techniques: automated exposure control; mA and/or kV adjustment per patient size (includes targeted exams where dose is matched to clinical indication); or iterative reconstruction. COMPARISON: No relevant prior studies available. RADIATION DOSE METRICS: Total DLP (mGy-cm): 1046.38 FINDINGS: Brain:? Moderate diffuse white matter disease likely reflecting chronic microvascular ischemic changes. Cerebral ventricles: No ventriculomegaly. Paranasal sinuses: Visualized sinuses are unremarkable. No fluid levels. Mastoid air cells: Visualized mastoid air cells are well aerated. Bones/joints: Unremarkable. No acute fracture. Soft tissues: Unremarkable. CT/CT head wo con* [id number] IMPRESSION: Negative for intracranial hemorrhage or mass effect ? Dictated By: Wayne Denny MD Signed By: Wayne Denny MD Signed Date/Time: 02/11/22 1629 DD/ 1557 Discharge Plan Discharge Patient Disposition: Home Clinical Impression: Insomnia, Heart palpitations, Back pain, Elevated blood pressure reading, Headache Condition: Stable Prescriptions: New acetaminophen 500 mg tablet 500 mg PO Q6H PRN (Reason: pain) 5 Days Qty: 20 0RF melatonin 10 mg capsule 10 mg PO DAILY PRN (Reason: sleep) 10 Days Qty: 10 0RF lidocaine 5 % adhesive patch,medicated 1 patch topical DAILY PRN (Reason: pain) 30 Days Qty: 30 0RF Rx Instructions: leave on most painful area for up to 12 hrs Biofreeze (menthol) 5 % gel 1 ea topical BID PRN (Reason: pain) 10 Days Qty: 1 0RF No Action alprazolam 0.25 mg tablet 0.25 mg PO TID PRN (Reason: Anxiety) 0RF omeprazole 40 mg capsule,delayed release(DR/EC) 40 mg PO DAILY@0700 0RF folic acid 1 mg tablet 1 mg PO DAILY 0RF methotrexate 2.5 mg/mL solution See Rx Instructions .ROUTE .COMPLEX 0RF Rx Instructions: orally metoprolol tartrate 50 mg tablet 50 mg PO DAILY@0700 0RF magnesium 200 mg tablet 200 mg PO DAILY@0700 0RF aspirin 81 mg tablet,delayed release (DR/EC) 81 mg PO DAILY@0700 0RF loratadine 10 mg capsule 10 mg PO DAILY@0700 0RF tamsulosin 0.4 mg capsule 0.4 mg PO DAILY@0700 0RF benazepril 40 mg tablet 40 mg PO DAILY@0700 0RF finasteride 5 mg tablet 5 mg PO DAILY Qty: 90 0RF Acidophilus 1 tab PO DAILY@0700 0RF B-complex with vitamin C Tablet 1 tab PO DAILY@0700 0RF [place] 3 1 tab PO DAILY@0700 0RF Vitamin D3 1 tab PO DAILY@0700 0RF vitamin E 1 tab PO DAILY@0700 0RF hydrocodone-acetaminophen 5-325 mg tablet 1 - 2 tab PO Q5H PRN (Reason: pain) Qty: 30 0RF Discharge Orders: Discharge ED (Routine); Ordered 02/11/22 Ordered By: Lena Fitzgerald Referrals: Zach Byrd MD [Primary Care Provider] - Discharge Diet: Advance as tolerated Discharge Activity: Increase activity as tolerated Patient Instructions: Hypertension (ED), Insomnia (ED) Activity Restrictions/Additional Instructions: Please come back if you have any headache, fever or chills, nausea or vomiting, diarrhea, blood in the stool, inability hold down liquid or solids, or any new concerning complaints. Coding Level of Care Code ED Business Support Coordinator for Chg Fwd Exam Comprehensive
[2022-02-11 16:32] LABS: Troponin(5th) Baseline 7 ng/L (0-15)
[2022-02-11 16:36] LABS: Blood Urea Nitrogen 16 mg/dL (8-23); Calcium 9.5 mg/dL (8.5-10.5); Carbon Dioxide 22 mmol/L (22-29); Chloride 105 mmol/L (98-107); Glucose 93 mg/dL (65-115); Osmolality Calculated 287 mOsm/kg (285-295); Sodium 138 mmol/L (136-145)
[2022-02-11 16:51] LABS: Anion Gap 15.6 (5-19); Potassium 4.6 mmol/L (3.5-5.1)
[2022-02-11 16:55] LABS: Basophils % 0.3 %; Eosinophils # 0.1 10^3/uL (0.0-0.8); Eosinophils % 0.9 %; Hemoglobin 14.4 g/dL (11.7-16.6); Lymphocytes # 1.4 10^3/uL (0.8-4.8); Lymphocytes % 14.8 %; Mean Corpuscular HGB Conc 33.5 g/dL (30.0-36.0); Mean Corpuscular Hemoglobin 30.6 pg (28.0-34.0); Mean Corpuscular Volume 91.3 fl (80-94); Mean Platelet Volume 10.4 fL (7.4-10.4); Monocytes # 0.6 10^3/uL (0.2-0.9); Monocytes % 6.6 %; Neutrophils # 7.18 10^3/uL (1.8-7.7); Neutrophils % 77.1 %; Nucleated Red Blood Cells % 0 %; Platelet Count 203 10^3/cmm (130-400); Red Blood Count 4.71 10^6/uL (4.1-5.3); Red Cell Distribution Width 11.8 % (12.1-15.1); White Blood Count 9.3 10^3/uL (4.0-10.0)
[2022-02-11] MEDS: acetaminophen 500 mg Tablet PO (17:11)
[2022-02-11 17:13] VITALS: BP 148/71; PULSE 66; RESP 22; O2SAT 97
--- NOTE | 2022-02-11 17:29 | ECG_ITS ---
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 Measurements Intervals [place] Rate: 67 P: 73 SC: 201 QRS: 53 QRSD: 86 T: 46 QT: 387 QTc: 409 Interpretive Statements SINUS RHYTHM WITH MARKED SINUS ARRHYTHMIA Poor R wave progression Compared to ECG 02/11/2022 14:40:57 No significant changes Electronically Signed On 02-11-2022 22:07:55 CDT by Brigette Tejada M.D. [id number]
[2022-02-11 17:35] VITALS: BP 143/76; PULSE 68; RESP 25; O2SAT 98
[2022-02-11 18:44] LABS: ABG PCO2 36.8 mmHg (35-45); ABG PH Result 7.44 (7.35-7.45); Alveolar-Arterial Oxygen Gradi 3.8 mmHg (5-10); Arterial Blood Gas Hematocrit 44.7 % (42-52); Base Excess ABG 1.1 mmol/L (-2.0-2.0); Blood Gas Allen Test Pos; Blood Gas Sample Site Radial, left; Blood Gas Sample Type Arterial; Carboxyhemoglobin < 0.0 %THgb (0.4-20.1); HGB O2 Sat 94.2 % (95-100); Ionized Calcium Level - ABG 1.2 mmol/L (1.1-1.4); Methemoglobin 0.5 % (0.4-1.5); Oxygen Saturation ABG 94.4; PO2 ABG 73.5 mmHg (80.0-100.0); Total Hemoglobin 14.6 g/dL (14-18)
[2022-02-11 18:45] LABS: Blood Gas Operator Identificat MONRO; Oxygen Device ROOM AIR
[2022-02-11 18:53] LABS: Troponin 5 2HR 9.72 ng/L (0-15)
[2022-02-11 18:56] LABS: Troponin 5 2HR Delta 2.72 ABS# (0-10)
[2022-02-11 19:30] VITALS: BP 160/80; PULSE 74; RESP 18; O2SAT 96
--- NOTE | 2022-02-15 15:05 | DCPLANNER ---
Addendum entered by Abbi Monsivais 04/23/22 18:35: Patient had a follow up appointment scheduled for 04.06.22 with [facility] - patient did not attend appointment. Addendum entered by Abbi Monsivais 02/18/22 11:42: Patient returned correctional case manager phone call and was given the appointment information. Original Note: retail associate manager bilingual had message to schedule a follow up appointment for patient with [facility]. retail associate manager bilingual called [facility], spoke with Era Weir, gave clinic patients information. A follow up appointment was scheduled for Wednesday, April 06, 2022 at 10:[address] Tejada. retail associate manager bilingual called phone number [phone] left a voicemail and called phone number [phone] left a voicemail at each phone to return correctional case manager phone call.
== END 2022-02-11 19:31 | disposition home or self-care (01) ==
PROVIDERS: Emergency Provider Emergency Medicine; PCP Family Medicine
DX: G47.00 Insomnia, unspecified (principal); R51.9 Headache, unspecified; R00.2 Palpitations; M54.9 Dorsalgia, unspecified; I10 Essential (primary) hypertension; Z79.82 Long term (current) use of aspirin
CPT/HCPCS: 36415; 36600; 70450; 80048; 80051; 82330; 82805; 84484; 85025; 93005; 99284

== ENCOUNTER 2022-06-14 16:31 | Observation (INO) | payer MEDICARE, SELFPAY ==
--- NOTE | 2022-06-14 16:33 | XRR_ITS ---
PROCEDURE INFORMATION: Exam: XR Chest Exam date and time: 06/14/2022 5:06 PM Age: 82 years old Clinical indication: Other: Weak; Additional info: Slurred speech TECHNIQUE: Imaging protocol: Radiologic exam of the chest. Views: 1 view. COMPARISON: CR XR chest 1V portable [id number] 02/09/2021 4:54 PM FINDINGS: Lungs: Lungs are clear. Pleural spaces: There is no pleural effusion or pneumothorax. Heart/Mediastinum: Cardiomediastinal contours are unremarkable. Bones/joints: The left lateral 7th rib demonstrates sclerosis and cortical irregularity which is new since the prior chest CT. Bones are otherwise unremarkable. XR/XR chest 1V portable [id number] IMPRESSION: 1. No acute cardiopulmonary abnormality. 2. Abnormal appearance of the left lateral 7th rib. Possible metastasis. Recommend nonemergent follow-up chest CT.
--- NOTE | 2022-06-14 16:33 | ECG_ITS ---
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 Measurements Intervals [place] Rate: 83 P: 61 [place]: 195 QRS: 9 QRSD: 82 T: 66 QT: 354 QTc: 416 Interpretive Statements SINUS RHYTHM WITH SINUS ARRHYTHMIA POSSIBLE ANTERIOR MYOCARDIAL INFARCTION , OF INDETERMINATE AGE [30 ms Q WAVE IN V3/V4, OR R < 0.2 mV IN V4] Compared to ECG 02/11/2022 16:17:48 Myocardial infarct finding now present Poor R-wave progression no longer present Electronically Signed On 06-14-2022 17:52:32 CDT by Terry Canas M.D. [email or web address]
--- NOTE | 2022-06-14 16:33 | CTR_ITS ---
PROCEDURE INFORMATION: Exam: CT Head Without Contrast Exam date and time: 06/14/2022 6:28 PM Age: 82 years old Clinical indication: Weakness, extremity; Bilateral; Additional info: Symptoms of acute stroke TECHNIQUE: Imaging protocol: Computed tomography of the head without contrast. Radiation optimization: All CT scans at this facility use at least one of these dose optimization techniques: automated exposure control; mA and/or kV adjustment per patient size (includes targeted exams where dose is matched to clinical indication); or iterative reconstruction. COMPARISON: CT head wo con* [id number] 02/11/2022 3:57 PM RADIATION DOSE METRICS: Total DLP (mGy-cm): 1036.38 FINDINGS: Brain: There is diffuse cerebral atrophy and chronic microvascular white matter disease. There is no acute intracranial hemorrhage. There is diffuse effacement of left frontal lobe sulci which is new since 02/11/2022. No midline shift. No focal abnormality is visible. Cerebral ventricles: There is moderate ex vacuo dilation of the lateral ventricles. Basal cisterns are unremarkable. Paranasal sinuses: The paranasal sinuses are clear. Mastoid air cells: The mastoid air cells are clear. Bones/joints: The calvarium is intact. Soft tissues: The visible extracranial soft tissues are unremarkable. CT/CT head wo con* [id number] IMPRESSION: Asymmetric left frontal sulcal effacement, new since 02/11/2022. Possible gyral edema. Differential diagnosis includes ischemia, inflammation, and less likely neoplasm. Recommend follow-up MRI.
[2022-06-14 16:37] VITALS: BP 161/77; PULSE 89; RESP 16; TEMP 36.8; O2SAT 98
--- NOTE | 2022-06-14 17:11 | ED_ITS ---
HPI - Neuro Symptoms/Deficit General: Chief Complaint: Neuro Symptoms/Deficit Stated Complaint: Slurred speech, Numbness in arms Time Seen by Provider: 06/14/22 17:03 Source: patient Mode of arrival: ambulatory Limitations: no limitations History of Present Illness: 82-year-old male states that over the last 1 to 2 weeks he has had episodes he has had numbness and his arms loss along with some confusion and slurred speech. He states the symptoms currently resolved he has no complaints at this time. He denies any headache denies any chest pain denies any fever he has had no vomiting or diarrhea he denies any worsening improving factors. Associated symptoms: Deny chest pain, nausea or vomiting Review of Systems Const: Denies: fever(s), chills, body aches or change in appetite Eyes: Denies: blurry vision or eye discomfort ENMT: Denies: throat pain or dental pain Card: Denies: chest pain Resp: Denies: dyspnea GI: Denies: abdominal pain, nausea, vomiting or diarrhea : Denies: dysuria Musc: Denies: neck pain or back pain Skin/Breast: Denies: rash Neuro: Reports: numbness in extremities Psych: Denies: depression Agustin/Lymph: Denies: easy bruising All/Imm: Denies: urticaria PFSH ED PFSH: Medical History Anxiety Benign prostatic hyperplasia with urinary retention GERD (gastroesophageal reflux disease) Hypertension Rheumatoid arthritis Surgical History Heel fracture bilateral from fall -- bilateral repair with hardware History of oral surgery teeth extraction History of tonsillectomy Social History Smoking and tobacco status: never smoked Alcohol intake: never Marital status: / Marital status details: The patient's spouse around 2014 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 Physical Exam Const: COMMON NORMALS: no acute distress, patient oriented x3 and healthy appearing HENMT: COMMON NORMALS: normocephalic and atraumatic HEAD & SCALP: normocephalic and atraumatic Eye: COMMON NORMALS: Equal, round and reactive pupils present and EOMs intact bilaterally PUPIL: Yes Equal, round and reactive pupils present Neck/C-Spine: COMMON NORMALS: full ROM and supple Chest: COMMONS NORMALS: normal inspection of the chest and normal palpation of entire chest wall Resp: COMMON NORMALS: normal respiratory effort, No retractions, No use of accessory muscles and clear to auscultation bilaterally AUSCULTATION: clear to auscultation bilaterally Cardio: COMMON NORMALS: regular rate, regular rhythm and No murmurs present (Cardio) RATE: regular rate RHYTHM: regular rhythm GI: COMMON NORMALS: Normal to inspection, nondistended, normoactive bowel sounds present, Soft to palpation, non-tender and no masses PALPATION: Yes Soft to palpation Extremity: COMMON NORMALS: normal to inspection and full ROM Neuro: COMMON NORMALS: patient oriented x3, moves all extremities and no focal motor deficits Psych: COMMON NORMALS: mental status grossly normal, Normal thought process present and cooperative THOUGHT PROCESS: Normal thought process present Skin: COMMON NORMALS: no rashes or lesions noted and no wounds GENERAL SKIN EXAM: no rashes or lesions noted Course Vital Signs: Vital signs: Vital Signs Temperature 98.3 F 06/14/22 16:37 Pulse Rate 89 06/14/22 16:37 Respiratory Rate 16 06/14/22 16:37 Blood Pressure 161/77 06/14/22 16:37 Pulse Oximetry 98 06/14/22 16:37 MDM - Neuro Symptoms/Deficit Medical Decision Making Patient presents here with periods of paresthesias and some confusion his CT chest 7 pelvis here showed likely prostate cancer with mets. His CT head is concerning for an infarct versus neoplasm as well will admit for observation likely needs a MRI of his head spoke to hospitalist who will admit. Lab Data : 06/14/22 18:01 06/14/22 18:01 Radiology Impressions Chest X-Ray 06/14/22 16:33 IMPRESSION: 1. No acute cardiopulmonary abnormality. 2. Abnormal appearance of the left lateral 7th rib. Possible metastasis. Recommend nonemergent follow-up chest CT. ADDENDUM: 06/14/22 [id number] THIS REPORT CONTAINS FINDINGS THAT MAY BE CRITICAL TO PATIENT CARE. The findings were verbally communicated via telephone conference with Dr. Castro at 5:32 PM CDT on 06/14/2022. The findings were acknowledged and understood. Head CT 06/14/22 16:33 IMPRESSION: Asymmetric left frontal sulcal effacement, new since 02/11/2022. Possible gyral edema. Differential diagnosis includes ischemia, inflammation, and less likely neoplasm. Recommend follow-up MRI. ADDENDUM: 06/14/225 THIS REPORT CONTAINS FINDINGS THAT MAY BE CRITICAL TO PATIENT CARE. The findings were verbally communicated via telephone conference with Dr. Castro at 6:52 PM CDT on 06/14/2022. The findings were acknowledged and understood. Chest/Abdomen/Pelvis CT 06/14/22 17:32 IMPRESSION: 1. Diffuse sclerotic osseous metastases. 2. No acute cardiopulmonary process. 3. 5 mm right major fissural nodule.Fleischner Society follow up recommendations for incidental nodules are not indicated. Follow up per the patient's medical condition. IMPRESSION: 1. Diffuse sclerotic osseous metastases. 2. Right external and internal iliac lymphadenopathy. 3. Enlarged prostate. 4. Based on findings above the most likely site of primary malignancy is the prostate. COMMENTS: Consistent with the [place]'s Incidental Findings Committee white paper (J Am Juana Radiol 2018): Any incidental renal lesion less than 1 cm or classified as too small to characterize, or any incidental cystic renal lesion characterized as simple-appearing, is likely benign. No follow-up imaging is recommended for these lesions per consensus recommendations based on imaging criteria. ADDENDUM: 06/14/221909 THIS REPORT CONTAINS FINDINGS THAT MAY BE CRITICAL TO PATIENT CARE. The findings were verbally communicated via telephone conference with ADRIAN CASTRO at 7:09 PM CDT on 06/14/2022. The findings were acknowledged and understood. Laboratory Results WBC 8.7 10^3/uL (4.0-10.0) 06/14/22 18:01 RBC 4.91 10^6/uL (4.1-5.3) 06/14/22 18:01 Hgb 14.7 g/dL (11.7-16.6) 06/14/22 18:01 Hct 46.6 % (42.0-52.0) 06/14/22 18: MCV 94.9 fl (80-94) H 06/14/22 18:01 MCH 29.9 pg (28.0-34.0) 06/14/22 18:01 MCHC 31.5 g/dL (30.0-36.0) 06/14/22 18: RDW 12.4 % (12.1-15.1) 06/14/22 18: Plt Count 186 10^3/cmm (130-400) 06/14/22 18: MPV 9.8 fL (7.4-10.4) 06/14/22 18: Neut % (Auto) 74.8 % 06/14/22 18: Lymph % (Auto) 14.7 % 06/14/22 18: [place] % (Auto) 9.3 % 06/14/22 18: Eos % (Auto) 0.6 % 06/14/22 18: Baso % (Auto) 0.3 % 06/14/22 18: Neut # (Auto) 6.49 10^3/uL (1.8-7.7) 06/14/22 18: Lymph # (Auto) 1.3 10^3/uL (0.8-4.8) 06/14/22 18: [place] # (Auto) 0.8 10^3/uL (0.2-0.9) 06/14/22 18: Eos # (Auto) 0.1 10^3/uL (0.0-0.8) 06/14/22 18: Baso # (Auto) 0.0 10^3/uL (0.0-0.1) 06/14/22 18: Nucleated RBC % (auto) 0 % 06/14/22 18: Nucleated RBCs # 0.0 /100WBC 06/14/22 18: PT 13.30 SECONDS (12.1-14.9) 06/14/22 18: INR 0.98 (0.8-1.2) 06/14/22 18: APTT 30.2 SECONDS (23.9-36.7) 06/14/22 18: Sodium 133 mmol/L (136-145) L 06/14/22 18: Potassium 4.0 mmol/L (3.5-5.1) 06/14/22 18: Chloride 96 mmol/L (98-107) L 06/14/22 18: Carbon Dioxide 22 mmol/L (22-29) 06/14/22 18:01 Anion Gap 19.0 (5-19) 06/14/22 18:01 BUN 26 mg/dL (8-23) H 06/14/22 18:01 Creatinine 1.3 mg/dL (0.7-1.2) H 06/14/22 18:01 GFR Calculation Not Reportable 06/14/22 18:01 Glucose 107 mg/dL (65-115) 06/14/22 18:01 POC Glucose 99 mg/dL (70-110) 06/14/22 17:33 Calculated Osmolality 281 mOsm/kg (285-295) L 06/14/22 18:01 Calcium 9.1 mg/dL (8.5-10.5) 06/14/22 18: Total Bilirubin 0.7 mg/dL (0.15-1.2) 06/14/22 18:01 AST 18 U/L (0-40) 06/14/22 18:01 ALT 9 U/L (0-41) 06/14/22 18:01 Alkaline Phosphatase 156 IU/L (40-130) H 06/14/22 18:01 Troponin T Baseline 8 ng/L (0-15) 06/14/22 18:01 Total Protein 7.5 g/dL (6.6-8.7) 06/14/22 18:01 Albumin 4.0 g/dL (3.5-5.2) 06/14/22 18:01 Globulin 3.5 g/dL (1.3-4.6) 06/14/22 18:01 Urine Color Yellow (Yellow) 06/14/22 17:46 Urine Appearance Clear (CLEAR) 06/14/22 17:46 Urine pH 5 (5-7) 06/14/22 17:46 Ur Specific [place] 1.025 (1.005-1.030) 06/14/22 17:46 Urine Protein Neg (Negative) 06/14/22 17:46 Urine Glucose (UA) Norm (Normal) 06/14/22 17:46 Urine Ketones 1+ (Negative) H 06/14/22 17:46 Urine Blood Neg (Negative) 06/14/22 17:46 Urine Nitrate Negative (Negative) 06/14/22 17:46 Urine Bilirubin Neg (Negative) 06/14/22 17:46 Urine Urobilinogen 1 mg/dL (Negative) H 06/14/22 17:46 Ur Leukocyte Esterase Negative (Negative) 06/14/22 17:46 EKG Data EKG 1: I personally reviewed and interpreted this EKG as follows: EKG interpretation date: 06/14/22 EKG interpretation time: 16:55 Interpretation: nsr hr [address] or t wave abnormalities qrs 82 qtc 393 EKG 2: I personally reviewed and interpreted this EKG as follows: EKG interpretation date: 06/14/22 EKG interpretation time: 18:45 Interpretation: nsr hr [address] or t wave abnormalities qrs 86 qtc 396 Discharge Plan Discharge Patient Disposition: Admitted As Inpatient Clinical Impression: Metastatic cancer, Altered mental status Condition: Stable Prescriptions: No Action alprazolam 0.25 mg tablet 0.25 mg PO TID PRN (Reason: Anxiety) 0RF omeprazole 40 mg capsule,delayed release(DR/EC) 40 mg PO DAILY@0700 0RF folic acid 1 mg tablet 1 mg PO DAILY 0RF methotrexate 2.5 mg/mL solution 2.5 mg PO DAILY 0RF metoprolol tartrate 50 mg tablet 50 mg PO DAILY@0700 0RF magnesium 200 mg tablet 200 mg PO DAILY@0700 0RF aspirin 81 mg tablet,delayed release (DR/EC) 81 mg PO DAILY@0700 0RF loratadine 10 mg capsule 10 mg PO DAILY@0700 0RF tamsulosin 0.4 mg capsule 0.4 mg PO DAILY 0RF benazepril 40 mg tablet 40 mg PO DAILY@0700 0RF finasteride 5 mg tablet 5 mg PO DAILY Qty: 90 0RF vitamin E 200 unit Capsule 200 unit PO DAILY Qty: 0 0RF cholecalciferol (vitamin D3) [Vitamin D3] 25 mcg (1,000 unit) Capsule 25 mcg PO DAILY Qty: 0 0RF B-complex with vitamin C Tablet 1 tab PO DAILY@0700 0RF Acidophilus 500 million cell Tablet 500 mmu cells PO DAILY 0RF temazepam 15 mg capsule 15 - 30 mg PO BEDTIME PRN (Reason: Sleep) 0RF Referrals: Zach Byrd MD [Primary Care Provider] - Coding Level of Care Code ED Draw Machine Operator for Chg Fwd Exam Comprehensive
--- NOTE | 2022-06-14 17:32 | CTR_ITS ---
PROCEDURE INFORMATION: Exam: CT Chest Without Contrast; Diagnostic Exam date and time: 06/14/2022 6:33 PM Age: 82 years old Clinical indication: Other: Centralized abd pain; Other: Dry cough; Prior surgery; Additional info: Possible mets TECHNIQUE: Imaging protocol: Diagnostic computed tomography of the chest without contrast. Radiation optimization: All CT scans at this facility use at least one of these dose optimization techniques: automated exposure control; mA and/or kV adjustment per patient size (includes targeted exams where dose is matched to clinical indication); or iterative reconstruction. COMPARISON: CR (CHEST, ) 06/14/2022 5:06 PM RADIATION DOSE METRICS: Total DLP (mGy-cm): 1346.77 FINDINGS: Lungs: There is no consolidation. Pleural spaces: There is no pleural effusion or pneumothorax. 5 mm noncalcified right fissural nodule on series 4, image 23. Heart: Heart size is normal. There is no pericardial effusion. There is mild coronary artery calcification. Lymph nodes: There is no mediastinal or hilar lymphadenopathy. Vasculature: There is mild aortic atherosclerotic disease. Bones/joints: There are sclerotic osseous lesions involving multiple ribs, most apparent in the left 7th rib where there are 2 healing pathologic fractures. There are multiple sclerotic bone lesions in the thoracic spine, manubrium, right clavicle, and right scapula. Soft tissues: The extrathoracic soft tissues are unremarkable. PROCEDURE INFORMATION: Exam: CT Abdomen And Pelvis Without Contrast Exam date and time: 06/14/2022 6:33 PM Age: 82 years old Clinical indication: Other: Centralized abd pain; Other: Dry cough; Prior surgery; Additional info: Possible mets TECHNIQUE: Imaging protocol: Computed tomography of the abdomen and pelvis without contrast. Radiation optimization: All CT scans at this facility use at least one of these dose optimization techniques: automated exposure control; mA and/or kV adjustment per patient size (includes targeted exams where dose is matched to clinical indication); or iterative reconstruction. COMPARISON: US abdomen limited [id number] 02/09/2021 4:23 PM RADIATION DOSE METRICS: Total DLP (mGy-cm): 1346.77 FINDINGS: Liver: The liver is normal. Gallbladder and bile ducts: Cholelithiasis is present. There is no sign of cholecystitis. There is no intrahepatic or extrahepatic bile duct dilation. Pancreas: The pancreas is unremarkable. Spleen: The spleen is unremarkable. Adrenal glands: The adrenal glands are unremarkable. Kidneys and ureters: There are simple cysts in both kidneys. Largest cyst on the left measures 6 cm. Largest cyst on the right measures 3.7 cm. There is mild atrophy of both kidneys. There is no hydronephrosis or ureteral dilation. Stomach and bowel: The stomach is decompressed, preventing meaningful evaluation of wall thickness. The small bowel is nondilated. There is mild sigmoid colonic diverticulosis without evidence of diverticulitis. Appendix: The appendix is normal. Intraperitoneal space: There is no free air or significant intraperitoneal free fluid. Vasculature: There is mild aortic atherosclerotic disease. Lymph nodes: A right external iliac lymph node measures 2.6 x 2.3 cm on series 3, image 97. A right internal iliac node measures 15 x 11 mm on series 3, image 101. Enlarged right iliac lymph nodes are asymmetric. Urinary bladder: The urinary bladder is unremarkable. Reproductive: The prostate is moderately enlarged. Bones/joints: There are diffuse sclerotic lumbar and pelvic metastases. Mild chronic L2 inferior endplate compression fracture. Soft tissues: The abdominal wall is intact. CT/[place] [id number] IMPRESSION: 1. Diffuse sclerotic osseous metastases. 2. No acute cardiopulmonary process. 3. 5 mm right major fissural nodule.Fleischner Society follow up recommendations for incidental nodules are not indicated. Follow up per the patient's medical condition. IMPRESSION: 1. Diffuse sclerotic osseous metastases. 2. Right external and internal iliac lymphadenopathy. 3. Enlarged prostate. 4. Based on findings above the most likely site of primary malignancy is the prostate. COMMENTS: Consistent with the [employer]'s Incidental Findings Committee white paper (J Am [place]ana Radiol 2018): Any incidental renal lesion less than 1 cm or classified as too small to characterize, or any incidental cystic renal lesion characterized as simple-appearing, is likely benign. No follow-up imaging is recommended for these lesions per consensus recommendations based on imaging criteria.
[2022-06-14 17:36] LABS: Glucose Point of Care 99 mg/dL (70-110)
[2022-06-14 18:10] LABS: Basophils % 0.3 %; Eosinophils # 0.1 10^3/uL (0.0-0.8); Eosinophils % 0.6 %; Hematocrit 46.6 % (42.0-52.0); Hemoglobin 14.7 g/dL (11.7-16.6); Lymphocytes # 1.3 10^3/uL (0.8-4.8); Lymphocytes % 14.7 %; Mean Corpuscular HGB Conc 31.5 g/dL (30.0-36.0); Mean Corpuscular Hemoglobin 29.9 pg (28.0-34.0); Mean Corpuscular Volume 94.9 fl (80-94); Mean Platelet Volume 9.8 fL (7.4-10.4); Monocytes # 0.8 10^3/uL (0.2-0.9); Monocytes % 9.3 %; Neutrophils # 6.49 10^3/uL (1.8-7.7); Neutrophils % 74.8 %; Nucleated Red Blood Cells % 0 %; Platelet Count 186 10^3/cmm (130-400); Red Blood Count 4.91 10^6/uL (4.1-5.3); Red Cell Distribution Width 12.4 % (12.1-15.1); White Blood Count 8.7 10^3/uL (4.0-10.0)
[2022-06-14 18:12] LABS: Add Urine Microscopic? NO; Charge for UA Resulting for Rev
[2022-06-14 18:16] LABS: Bilirubin Urine Neg (Negative); Blood Urine Neg (Negative); Glucose Urine UA Norm (Normal); Ketones Urine 1+ (Negative); Leukocyte Esterase Urine Negative (Negative); Nitrate Urine Negative (Negative); Protein Urine Neg (Negative); Specific Gravity, Urine 1.025 (1.005-1.030); Urine Appearance Clear (CLEAR); Urine Color Yellow (Yellow); Urobilinogen Urine 1 mg/dL (Negative); pH Urine 5 (5-7)
[2022-06-14 18:30] LABS: INR 0.98 (0.8-1.2)
[2022-06-14 18:31] LABS: Partial Thromboplastin Time 30.2 SECONDS (23.9-36.7)
--- NOTE | 2022-06-14 18:33 | ECG_ITS ---
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 Measurements Intervals [place] Rate: 87 P: 64 [place]: 185 QRS: 20 QRSD: 86 T: 65 QT: 351 QTc: 424 Interpretive Statements SINUS RHYTHM POSSIBLE ANTERIOR MYOCARDIAL INFARCTION , OF INDETERMINATE AGE [30 ms Q WAVE IN V3/V4, OR R < 0.2 mV IN V4] Compared to ECG 06/14/2022 16:55:42 Sinus arrhythmia no longer present Myocardial infarct finding still present Electronically Signed On 06-14-2022 19:04:53 CDT by Terry Canas M.D. [id number]
[2022-06-14 18:34] LABS: Troponin(5th) Baseline 8 ng/L (0-15)
[2022-06-14 18:35] LABS: Alanine Aminotransferase 9 U/L (0-41); Alkaline Phosphatase 156 IU/L (40-130); Aspartate Amino Transferase 18 U/L (0-40); Blood Urea Nitrogen 26 mg/dL (8-23); Calcium 9.1 mg/dL (8.5-10.5); Carbon Dioxide 22 mmol/L (22-29); Globulin 3.5 g/dL (1.3-4.6); Glucose 107 mg/dL (65-115); Osmolality Calculated 281 mOsm/kg (285-295); Sodium 133 mmol/L (136-145); Total Bilirubin 0.7 mg/dL (0.15-1.2); Total Protein 7.5 g/dL (6.6-8.7)
[2022-06-14 18:42] LABS: Chloride 96 mmol/L (98-107)
--- NOTE | 2022-06-14 18:58 | PC.NURSE ---
REPORT GIVEN TO [facility]HA[facility]AR[facility] ASSUMED CARE.
--- NOTE | 2022-06-14 20:32 | P.HP_ITS ---
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 He states that he has had some issues with his prostate, and has been awaiting appointment to see Dr. Golden. He states has been having some mild headaches, mild nausea. Reports some chronic diarrhea which is not new. In ER CT of the head shows asymmetric left frontal sulcal effacement, new since 02/11/2022, possible gyral edema. Differential diagnosis with possible ischemia, inflammation, neoplasm. Recommended follow-up MRI. Chest x-ray with noted abnormal appearance of the seventh left lateral rib. Possible metastatic disease. CT chest abdomen pelvis with noted diffuse sclerotic osseous meta stasis. No acute cardiopulmonary process. 5 mm right major fissural nodule. Right external and internal iliac lymphadenopathy. Enlarged prostate. In case of cardiopulmonary arrest, he would not want prolonged life support if there was no chance of good neurologic recovery. Review of Systems Const: Denies: fever(s), chills, body aches or malaise Eyes: Denies: change in vision, eye discomfort or eye redness ENMT: Denies: throat pain, oral sores or ear or mastoid pain Card: Denies: chest pain, edema, pre-syncope or dyspnea on exertion Resp: Denies: dyspnea, productive cough, change in phlegm color or hemoptysis GI: Reports: nausea and diarrhea; Denies: abdominal pain, vomiting, constipation, hematochezia or melena : Reports: difficulty urinating; Denies: flank pain, urinary frequency or hematuria Musc: Denies: back pain, joint swelling or joint redness Skin/Breast: Denies: rash or new lesions Neuro: Reports: headache(s), numbness in extremities and difficulty communicating thoughts; Denies: weakness in extremities, dizziness, confusion or seizure-like activity Endo: Denies: polyuria or polydipsia Agustin/Lymph: Reports: easy bruising; Denies: tender lymph nodes All/Imm: Denies: urticaria or tongue swelling Medications/Allergies Home Medications Medication Instructions Recorded Confirmed Last Taken Type finasteride 5 mg tablet 5 mg PO DAILY #90 tab 06/10/20 06/14/22 06/14/22 Rx B-complex with vitamin C 1 tab PO DAILY@0702/09/21 06/14/22 06/14/22 History alprazolam 0.25 mg tablet 0.25 mg PO TID PRN 02/09/21 06/14/22 06/14/22 History aspirin 81 mg tablet,delayed 81 mg PO DAILY@69902/09/21 06/14/22 06/14/22 History release benazepril 40 mg tablet 40 mg PO DAILY@69902/09/21 06/14/22 06/14/22 History cholecalciferol (vitamin D3) 25 25 mcg PO DAILY #0 02/09/21 06/14/22 06/14/22 History mcg (1,000 unit) capsule (Vitamin D3) folic acid 1 mg tablet 1 mg PO DAILY 02/09/21 06/14/22 06/14/22 History loratadine 10 mg capsule 10 mg PO DAILY@69902/09/21 06/14/22 06/14/22 History magnesium 200 mg tablet 200 mg PO DAILY@69902/09/21 06/14/22 06/14/22 History methotrexate 2.5 mg/mL oral 2.5 mg PO DAILY 02/09/21 06/14/22 Unknown History solution metoprolol tartrate 50 mg tablet 50 mg PO DAILY@69902/09/21 06/14/22 06/14/22 History omeprazole 40 mg capsule,delayed 40 mg PO DAILY@69902/09/21 06/14/22 06/14/22 History release tamsulosin 0.4 mg capsule 0.4 mg PO DAILY 02/09/21 06/14/22 06/14/22 History vitamin E 200 unit capsule 200 unit PO DAILY #0 02/09/21 06/14/22 06/14/22 History Lactobacillus acidophilus 500 500 mmu cells PO DAILY 06/14/22 06/14/22 06/14/22 History million cell tablet temazepam 15 mg capsule 15 - 30 mg PO BEDTIME PRN 06/14/22 06/14/22 Unknown History Allergies Allergy/AdvReac Type Severity Reaction Status Date / Time No Known Allergies Allergy Verified 06/14/22 17:24 PFSH Acute PFSH: Medical History Anxiety Benign prostatic hyperplasia with urinary retention GERD (gastroesophageal reflux disease) Hypertension Rheumatoid arthritis Surgical History Heel fracture bilateral from fall -- bilateral repair with hardware History of oral surgery teeth extraction History of tonsillectomy Social History Smoking and tobacco status: never smoked Alcohol intake: never Marital status: / Marital status details: The patient's spouse around 2014 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[employer] Vitals/I&O/Wt Last Vital Signs Temp 98.3 F 06/14/22 16:37 Pulse 89 06/14/22 16:37 Resp 16 06/14/22 16:37 BP 161/77 06/14/22 16:37 Pulse Ox 98 06/14/22 16:37 Weight last 48 hrs Weight 79.832 kg Physical Exam Narrative: at bedside Const: COMMON NORMALS: alert GENERAL APPEARANCE: cooperative ORIENTATION/CONSCIOUSNESS: Yes awake HENMT: COMMON NORMALS: normocephalic, EAC's normal, Normal external nose present and moist oral mucous membranes HEAD & SCALP: normocephalic NOSE: Normal external nose present EXTERNAL AUDITORY CANAL: EAC's normal Neck/C-Spine: COMMON NORMALS: no meningeal signs Chest: CHEST: Yes Symmetrical chest wall rise Resp: COMMON NORMALS: clear to auscultation bilaterally AUSCULTATION: clear to auscultation bilaterally Cardio: COMMON NORMALS: regular rate, regular rhythm and No murmurs present (Cardio) RATE: regular rate RHYTHM: regular rhythm GI: COMMON NORMALS: Normal to inspection, nondistended, normoactive bowel sounds present, Soft to palpation and non-tender PALPATION: Yes Soft to p alpation Extremity: COMMON NORMALS: no pedal edema Neuro: COMMON NORMALS: moves all extremities SENSORIUM/ORIENTATION: Yes alert MENINGEAL SIGNS: Yes no meningeal signs SPEECH: abnormal speech (Mild to moderate aphasia) Psych: COMMON NORMALS: mental status grossly normal Skin: COMMON NORMALS: no wounds RASHES: no rashes Data : 06/14/22 18:01 06/14/22 18:01 A&P Assessment and plan (1) Left frontal lobe lesion: Unknown chronicity of the lesion, although aphasia is reported over the last 2 months or so. Not entirely clear what this is at this time, discussed with him and his differential for now is broad, including CVA, malignancy given otherwise appearance of metastatic cancer. They are agreeable for additional assessment with MRI. Further assessment and management will depend on the findings. Status: Acute (2) Metastatic cancer: Possibly prostate cancer based on appearance of CT. With enlarged prostate, also inguinal lymphadenopathy. Will need additional urologic assessment with prostate biopsy and referral to oncology, both possibly could be done on the outpatient side, depending on condition and findings on the MRI brain as above. Status: Acute (3) EMILEE (acute kidney injury): Creatinine 1.3, entirely clear reason for EMILEE. Will request urine studies. Mild atrophy noted in the kidneys. Possible component of CKD. No hydronephrosis. Hold benazepril Status: Acute Plan RA on methotrexate HTN GERD Anxiety Attestations Medical Necessity Statement*: Place in observation for additional assessment of left frontal lobe lesion with possible CVA versus possible metastatic malignant spread or other cause. New finding of metastatic cancer, EMILEE. 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
[2022-06-14 21:24] VITALS: BP 121/80; PULSE 88; RESP 16; O2SAT 94
[2022-06-14 21:26] LABS: Troponin 5 2HR 6.87 ng/L (0-15)
[2022-06-14 21:31] LABS: Troponin 5 2HR Delta -1.13 ABS# (0-10)
[2022-06-14 21:44] VITALS: BP 164/72; PULSE 81; RESP 18; TEMP 36.7; O2SAT 92
[2022-06-14 21:53] LABS: Urine Creatinine 300 mg/dL (39-259); Urine Random Sodium 67 mmol/L
[2022-06-14] MEDS: heparin 5,000 unit/mL INJ 1 mL 5000 UNIT SUBCUT (22:29)
--- NOTE | 2022-06-14 22:33 | ECG_ITS ---
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 Measurements Intervals [place] Rate: 84 P: 58 UT: 187 QRS: 16 QRSD: 90 T: 56 QT: 355 QTc: 420 Interpretive Statements SINUS RHYTHM WITH SINUS ARRHYTHMIA POSSIBLE ANTERIOR MYOCARDIAL INFARCTION , OF INDETERMINATE AGE [30 ms Q WAVE IN V3/V4, OR R < 0.2 mV IN V4] Compared to ECG 06/14/2022 18:45:39 No significant changes Electronically Signed On 06-15-2022 20:58:16 CDT by Brigette Tejada M.D. [id number]
[2022-06-15] VITALS (7 sets, daily range): BP systolic 112–138; BP diastolic 53–73; PULSE 55–88; RESP 12–18; TEMP 36.7–36.9; O2SAT 91–97
[2022-06-15 04:26] LABS: Blood Urea Nitrogen 23 mg/dL (8-23); Calcium 9.2 mg/dL (8.5-10.5); Carbon Dioxide 27 mmol/L (22-29); Chloride 98 mmol/L (98-107); Glucose 91 mg/dL (65-115); Osmolality Calculated 283 mOsm/kg (285-295); Sodium 135 mmol/L (136-145); Troponin 5 6HR 8.55 ng/L (0-15)
[2022-06-15 04:32] LABS: Basophils % 0.4 %; Eosinophils # 0.1 10^3/uL (0.0-0.8); Eosinophils % 1.2 %; Hematocrit 40.3 % (42.0-52.0); Hemoglobin 13.9 g/dL (11.7-16.6); Lymphocytes # 1.5 10^3/uL (0.8-4.8); Lymphocytes % 20.1 %; Mean Corpuscular HGB Conc 34.5 g/dL (30.0-36.0); Mean Corpuscular Hemoglobin 29.8 pg (28.0-34.0); Mean Corpuscular Volume 86.5 fl (80-94); Mean Platelet Volume 9.8 fL (7.4-10.4); Monocytes # 0.8 10^3/uL (0.2-0.9); Monocytes % 10.5 %; Neutrophils % 67.5 %; Nucleated Red Blood Cells % 0 %; Platelet Count 190 10^3/cmm (130-400); Red Blood Count 4.66 10^6/uL (4.1-5.3); Red Cell Distribution Width 12.2 % (12.1-15.1); Troponin 5 6HR Delta 0.55 ng/L (0-12); White Blood Count 7.4 10^3/uL (4.0-10.0)
[2022-06-15] MEDS: heparin 5,000 unit/mL INJ 1 mL 5000 UNIT SUBCUT ×3 (05:22→22:15)
[2022-06-15] MEDS: pantoprazole DR 40 mg Tablet PO (06:28)
[2022-06-15] MEDS: aspirin 81 mg EC Tablet PO (06:28)
[2022-06-15] MEDS: metoprolol tartrate 50 mg Tablet PO (06:28)
[2022-06-15] MEDS: ALPRAZolam 0.5 mg Tablet 0.25 MG PO (08:59)
--- NOTE | 2022-06-15 09:30 | MR_ITS ---
WS: [id number] MRI HEAD WITH CONTRAST TECHNIQUE: Sagittal T1, T2 axial, T2 axial FLAIR, axial susceptibility weighted imaging, axial diffus ion weighted images, and coronal T2 images were obtained. Pre and post-T1 axial and post T1 coronal i mages. ADC and FSPGR images. CLINICAL INFORMATION: L frontal cva vs metastatic disease COMPARISON: None. FINDINGS: Dural thickening and enhancement overlying the LEFT frontal lobe with diffuse leptomeningea l enhancement involving the LEFT frontal and anterior parietal mainly in the LEFT frontal lobe. Enhan cement extending along the anterior midline falx. Increased T2 FLAIR signal within the subarachnoid s paces in the LEFT frontal lobe. Findings suspicious for leptomeningeal carcinomatosis. Meningio- ence phalitis would be an additional less likely consideration. No hydrocephalus. Moderate small vessel changes with mild parenchymal volume loss. Normal posterior f quinton. Normal vascular flow voids at the skull base. No extra-axial fluid collections. Mild mucosal th ickening in the ethmoid air cells. No restricted diffusion to suggest acute ischemia. No hemosiderin on susceptibly weighted images. Nor mal optic chiasm and pituitary infundibulum. Moderate to advanced symmetric atrophy temporal lobes an d hippocampal formations. Heterogeneous bone marrow signal in the upper cervical spine with diffuse replacement normal fatty telma ne marrow signal in C3 suspicious for bony metastatic disease. MR/MR head wo/w con [id number] IMPRESSION: 1. Thin LEFT frontal dural thickening and enhancement overlying the LEFT front al lobe anteriorly suspicious for dural metastasis with associated leptomeninge al enhancement suspicious for leptomeningeal carcinomatosis. Enhancement extend s along the midline anterior falx. Meningoencephalitis is an additional less li amie consideration 2. Associated T2 subarachnoid signal abnormality in the LEFT frontal and anter ior parietal lobes. No mass effect or midline shift. 3. No hydrocephalus. 4. Moderate small vessel changes with moderate parenchymal volume loss. 5. Heterogeneous bone marrow signal in the upper cervical spine suspicious for metastatic disease with replacement normal bone marrow signal at C3. Mild cent ral canal stenosis partially visualized at C3 and C4. This could be further calderon luated with cervical spine MRI. 6. Moderate to advanced symmetric atrophy temporal lobes and hippocampal forma tions. Notified Dr. Fidel ENRIQUEZ at 06/15/2022 12:51 PM.
[2022-06-15] MEDS: lactobacillus 1 Tablet 1 TAB PO (09:55)
[2022-06-15] MEDS: tamsulosin 0.4 mg Capsule PO (09:55)
[2022-06-15] MEDS: folic acid 1 mg Tablet PO (09:55)
[2022-06-15] MEDS: finasteride 5 mg Tablet PO (09:55)
--- NOTE | 2022-06-15 12:24 | PM.CONSULT ---
Providers/Reason For Consult Consulting Physician/Specialty*: Urology/Golden Reason for Consult*: Clinical evidence of prostate cancer with bony metastasis. Requesting Physician: Dr. Parra Attending Physician: Ana Parra MD Primary Care Provider: Zach Byrd MD History of Present Illness History of Present Illness Deric Chavez is a 82 year old male admitted to the hospital yesterday with confusion. CT scan of the head showed asymmetric left frontal sulcal effacement new since 02/11/2022. Etiology unclear. Could not rule out metastatic process. Chest x-ray showed what appeared to be osseous metastasis. This was followed by CT scan that showed diffuse sclerotic osseous metastasis. Prostate was enlarged. Also demonstrated several areas of bilateral lymphadenopathy in the pelvis near the iliac vessels. Follow-up PSA was 485.3. Patient reports multiple areas of bony pain. Per his report he has never had a diagnosis of prostate cancer. I saw him initially back in 2018 for urinary retention. Had a large benign feeling prostate at that time. Was treated for BPH with dual medical therapy and was advanced to [facility] and then later spontaneous voiding. His last visit was in October 2018 and he was voiding well with good emptying. Was to be continued on TAMSULOSIN and FINASTERIDE. Was scheduled for follow-up in 1 year. Did not keep that appointment. Clinical picture is 1 of prostate cancer with diffuse metastasis. Medications/Allergies Home Medications Medication Instructions Recorded Confirmed Last Taken Type finasteride 5 mg tablet 5 mg PO DAILY #90 tab 06/10/20 06/14/22 06/14/22 Rx B-complex with vitamin C 1 tab PO DAILY@0702/09/21 06/14/22 06/14/22 History alprazolam 0.25 mg tablet 0.25 mg PO TID PRN 02/09/21 06/14/22 06/14/22 History aspirin 81 mg tablet,delayed 81 mg PO DAILY@69902/09/21 06/14/22 06/14/22 History release benazepril 40 mg tablet 40 mg PO DAILY@0702/09/21 06/14/22 06/14/22 History cholecalciferol (vitamin D3) 25 25 mcg PO DAILY #0 02/09/21 06/14/22 06/14/22 History mcg (1,000 unit) capsule (Vitamin D3) folic acid 1 mg tablet 1 mg PO DAILY 02/09/21 06/14/22 06/14/22 History loratadine 10 mg capsule 10 mg PO DAILY@69902/09/21 06/14/22 06/14/22 History magnesium 200 mg tablet 200 mg PO DAILY@69902/09/21 06/14/22 06/14/22 History methotrexate 2.5 mg/mL oral 2.5 mg PO DAILY 02/09/21 06/14/22 Unknown History solution metoprolol tartrate 50 mg tablet 50 mg PO DAILY@69902/09/21 06/14/22 06/14/22 History omeprazole 40 mg capsule,delayed 40 mg PO DAILY@69902/09/21 06/14/22 06/14/22 History release tamsulosin 0.4 mg capsule 0.4 mg PO DAILY 02/09/21 06/14/22 06/14/22 History vitamin E 200 unit capsule 200 unit PO DAILY #0 02/09/21 06/14/22 06/14/22 History Lactobacillus acidophilus 500 500 mmu cells PO DAILY 06/14/22 06/14/22 06/14/22 History million cell tablet temazepam 15 mg capsule 15 - 30 mg PO BEDTIME PRN 06/14/22 06/14/22 Unknown History Allergies Allergy/AdvReac Type Severity Reaction Status Date / Time No Known Allergies Allergy Verified 06/14/22 17:24 Current Medications Generic Name Dose Route Start Last Admin Trade Name Freq PRN Reason Stop Dose Admin Alprazolam 0.25 mg 06/14/22 21:44 06/15/22 08:59 Alprazolam 0.5 Mg Tablet PO 0.25 mg TID PRN Administration Anxiety Aspirin 81 mg 06/15/22 07:00 06/15/22 06:28 Aspirin 81 Mg Ec Tablet PO 81 mg DAILY@0700 SHAZIA Administration Finasteride 5 mg 06/15/22 09:00 06/15/22 09:55 Finasteride 5 Mg Tablet PO 5 mg DAILY SHAZIA Administration Folic Acid 1 mg 06/15/22 09:00 06/15/22 09:55 Folic Acid 1 Mg Tablet PO 1 mg DAILY SHAZIA Administration Heparin Sodium (Porcine) 5,000 unit 06/14/22 21:44 06/15/22 05:22 Heparin 5,000 Unit/Ml Inj 1 Ml SUBCUT 5,000 unit Q8H SHAZIA Administration Lactobacillus Acidophilus 1 tab 06/15/22 09:00 06/15/22 09:55 Lactobacillus 1 Tablet PO 1 tab DAILY SHAZIA Administration Metoprolol Tartrate 50 mg 06/15/22 07:00 06/15/22 06:28 Metoprolol Tartrate 50 Mg Tablet PO 50 mg DAILY@0700 SHAZIA Administration Non-Formulary Medication 2.5 mg 06/15/22 09:00 06/15/22 11:34 Methotrexate PO Not Given DAILY SHAZIA Pantoprazole Sodium 40 mg 06/15/22 07:00 06/15/22 06:[address] 40 Mg Tablet PO 40 mg DAILY@0700 SHAZIA Administration Tamsulosin HCl 0.4 mg 06/15/22 09:00 06/15/22 09:55 Tamsulosin 0.4 Mg Capsule PO 0.4 mg DAILY SHAZIA Administration PFSH Acute PFSH: Medical History Anxiety Benign prostatic hyperplasia with urinary retention GERD (gastroesophageal reflux disease) Hypertension Rheumatoid arthritis Surgical History Heel fracture bilateral from fall -- bilateral repair with hardware History of oral surgery teeth extraction History of tonsillectomy Social History Smoking and tobacco status: never smoked Alcohol intake: never Marital status: / Marital status details: The patient's spouse around 2014 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 Vitals/I&O/Wt Last Vital Signs Temp 98.1 F 06/15/22 11:25 Pulse 65 06/15/22 11:25 Resp 14 06/15/22 11:25 BP 112/71 06/15/22 11:25 Pulse Ox 91 06/15/22 11:25 06/14/22 06/15/22 06/15/22 22:59 06:59 14:59 Output Total 250 / 250 Balance -250 / -250 Weight last 48 hrs Weight 181 lb 12.8 oz Weight 176 lb Physical Exam Const: COMMON NORMALS: no acute distress, alert and well nourished GENERAL APPEARANCE: well kempt and well developed ORIENTATION/CONSCIOUSNESS: not confused HENMT: COMMON NORMALS: normocephalic and atraumatic HEAD & SCALP: normocephalic and atraumatic Eye: COMMON NORMALS: conjunctivae normal and no scleral icterus CONJUNCTIVA: Yes conjunctivae normal Neck/C-Spine: COMMON NORMALS: full ROM Lymph: LYMPHATIC: no lymphadenopathy noted Resp: COMMON NORMALS: normal respiratory effort EFFORT & INSPECTION: No labored and No Actively coughing GI: OTHER: Normal sphincter tone, no gross blood, no rectal masses. Prostate is grossly abnormal with diffuse induration and nodularity. Consistent with prostate cancer. Extremity: COMMON NORMALS: no clubbing, cyanosis or edema Neuro: SENSORIUM/ORIENTATION: Yes alert Psych: COMMON NORMALS: mental status grossly normal APPEARANCE: Yes grossly normal and Yes well kempt ATTITUDE: Yes calm and Yes engaged OTHER: Does have some aphasia ongoing over 2 months or so. Skin: COMMON NORMALS: no rashes or lesions noted and no jaundice GENERAL SKIN EXAM: no rashes or lesions noted Data : 06/15/22 03:29 06/15/22 03:29 A&P Assessment and plan (1) Prostate cancer metastatic to bone: Status: Acute (2) Prostate cancer metastatic to intrapelvic lymph node: Status: Acute (3) Altered mental status: Status: Acute Plan 1. Newly diagnosed metastatic prostate cancer. 2. We will start BICALUTAMIDE. 3. We will plan for outpatient biopsy if required by oncology for treatment. 4. 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
--- NOTE | 2022-06-15 12:32 | PM.PN ---
Subjective Subjective: Concern for possible lytic malignancy We will follow-up with a head MRI to rule out mets Patient is stating that he has been having intermittent numbness of his upper extremities No strokelike features PSA 485 Dr. Golden has been notified and consulted Vitals/I&O/Wt Last Vital Signs Temp 98.1 F 06/15/22 11:25 Pulse 65 06/15/22 11:25 Resp 14 06/15/22 11:25 BP 112/71 06/15/22 11:25 Pulse Ox 91 06/15/22 11:25 06/14/22 06/15/22 06/15/22 22:59 06:59 14:59 Output Total 250 / 250 Balance -250 / -250 Weight last 48 hrs Weight 82.463 kg Weight 79.832 kg Physical Exam Narrative: Patient is laying supine Very pleasant cooperative male Abdomen soft I have not done prostate exam during my visit today Hemodynamically stable Nonfocal neuro exam S1, S2 I did not appreciate a murmur Normal breath sounds no adventitious rhonchi or crackles EOMI, PERRLA Data : 06/15/22 03:29 06/15/22 03:29 A&P Assessment and plan (1) EMILEE (acute kidney injury): Status: Acute (2) Left frontal lobe lesion: Status: Acute (3) Metastatic cancer: Status: Acute (4) Altered mental status: Status: Acute (5) Benign prostatic hyperplasia with urinary retention: Status: Acute Plan Intermittent numbness of upper extremities Left frontal lobe lesion Patient has not displayed strokelike typical features Mild aphasia Is able to eat without any aspiration MRI today Prostate cancer with mets, high PSA also has inguinal lymphadenopathy Will follow up with Dr. 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
--- NOTE | 2022-06-15 17:01 | PC.OT ---
OT EVALUATION ATTEMPTED AT AM, PT GONE FOR MRI. EVALUATION WILL BE ATTEMPTED TOMORROW.
[2022-06-16] VITALS (8 sets, daily range): BP systolic 127–135; BP diastolic 70–75; PULSE 60–69; RESP 14–16; TEMP 36.5–36.8; O2SAT 90–96
[2022-06-16] MEDS: metoprolol tartrate 50 mg Tablet PO (06:06)
[2022-06-16] MEDS: pantoprazole DR 40 mg Tablet PO (06:06)
[2022-06-16] MEDS: heparin 5,000 unit/mL INJ 1 mL 5000 UNIT SUBCUT (06:07)
[2022-06-16] MEDS: aspirin 81 mg EC Tablet PO (06:07)
--- NOTE | 2022-06-16 06:24 | P.DS_ITS ---
Discharge Providers Date of Admission: 06/14/22 21:44 Date of Discharge: June 16, 2022 Attending Provider at Admission: Markell Rodas Attending Provider at Discharge: Ana Parra MD Primary Care Provider: Zach Byrd MD Diagnoses at Discharge Discharge Diagnosis (1) Prostate cancer metastatic to bone: Status: Acute (2) Prostate cancer metastatic to intrapelvic lymph node: Status: Acute (3) Altered mental status: Status: Acute Reason for Visit Reason for Visit: Slurred speech, Numbness in arms Hospital Course Hospital Course 82-year-old male who presented to the hospital with chief complaint of word- finding difficulty and intermittent numbness of upper extremities, diagnostic work-up in the ER revealed left frontal lobe lesion, concern for prostate cancer with lumbar spine mets, inguinal lymphadenopathy on CT abdomen pelvis, PSA was above 400, 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 He was evaluated by Dr. Golden who started him on bicalutamide. Patient will follow up with oncology team outpatient. I did speak with Dr. Wells who recommended CSF panel, for cytology and PSA level I did speak with Dr. Maynard pathologist. CSF has been obtained around 3 PM, I have notified pathologist. Patient is stating that in case of emergency his friend should be notified lives 5 miles away he does not want his children to be notified, patient is stating that he has been living alone since 1971. I did tell him that he is at risk of seizure, recurrent stroke, he does not want to go to any assisted. Dr. Wells will schedule him for outpatient radiotherapy and ADT treatment Physical Exam Narrative: Pleasant cooperative male Looks euvolemic Abdomen soft No signs of meningoencephalitis EOMI, PERRLA Good strength of upper and lower extremities Abdomen soft Saturating well on room air Discharge Data Studies Completed and Pending Completed Studies During Hospitalization Category [place] [id number] Urgent Cat Scan 06/14/22 17:[address] head wo con* [id number] Stat Cat Scan 06/14/22 16:33 Completed XR chest 1V portable [id number] Stat Exams 06/14/22 16:33 Completed MR head wo/w con [id number] Urgent MRI 06/15/22 09:30 Completed Pending at discharge Category Date Time Status Basic Metabolic Panel AM LABS Lab 06/16/22 04:00 Ordered Basic Metabolic Panel AM LABS Lab 06/17/22 04:00 Ordered Complete Blood Count w/Auto AM LABS Lab 06/16/22 04:00 Ordered Complete Blood Count w/Auto AM LABS Lab 06/17/22 04:00 Ordered Radiology Impressions Chest X-Ray 06/14/22 16:33 IMPRESSION: 1. No acute cardiopulmonary abnormality. 2. Abnormal appearance of the left lateral 7th rib. Possible metastasis. Recommend nonemergent follow-up chest CT. ADDENDUM: 06/14/22 1735 THIS REPORT CONTAINS FINDINGS THAT MAY BE CRITICAL TO PATIENT CARE. The findings were verbally communicated via telephone conference with Dr. Castro at 5:32 PM CDT on 06/14/2022. The findings were acknowledged and understood. Head CT 06/14/22 16:33 IMPRESSION: Asymmetric left frontal sulcal effacement, new since 02/11/2022. Possible gyral edema. Differential diagnosis includes ischemia, inflammation, and less likely neoplasm. Recommend follow-up MRI. ADDENDUM: 06/14/22 1855 THIS REPORT CONTAINS FINDINGS THAT MAY BE CRITICAL TO PATIENT CARE. The findings were verbally communicated via telephone conference with Dr. Castro at 6:52 PM CDT on 06/14/2022. The findings were acknowledged and understood. Chest/Abdomen/Pelvis CT 06/14/22 17:32 IMPRESSION: 1. Diffuse sclerotic osseous metastases. 2. No acute cardiopulmonary process. 3. 5 mm right major fissural nodule.Fleischner Society follow up recommendations for incidental nodules are not indicated. Follow up per the patient's medical condition. IMPRESSION: 1. Diffuse sclerotic osseous metastases. 2. Right external and internal iliac lymphadenopathy. 3. Enlarged prostate. 4. Based on findings above the most likely site of primary malignancy is the prostate. COMMENTS: Consistent with the [employer]'s Incidental Findings Committee white paper (J Am Juana Radiol 2018): Any incidental renal lesion less than 1 cm or classified as too small to characterize, or any incidental cystic renal lesion characterized as simple-appearing, is likely benign. No follow-up imaging is recommended for these lesions per consensus recommendations based on imaging criteria. ADDENDUM: 06/14/221909 THIS REPORT CONTAINS FINDINGS THAT MAY BE CRITICAL TO PATIENT CARE. The findings were verbally communicated via telephone conference with ADRIAN CASTRO at 7:09 PM CDT on 06/14/2022. The findings were acknowledged and understood. Head MRI 06/15/22 09:30 IMPRESSION: 1. 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 Enhancement extends along the midline anterior falx. Meningoencephalitis is an additional less likely consideration 2. Associated T2 subarachnoid signal abnormality in the LEFT frontal and anterior parietal lobes. No mass effect or midline shift. 3. No hydrocephalus. 4. Moderate small vessel changes with moderate parenchymal volume loss. 5. Heterogeneous bone marrow signal in the upper cervical spine suspicious for metastatic disease with replacement normal bone marrow signal at C3. Mild central canal stenosis partially visualized at C3 and C4. This could be further evaluated with cervical spine MRI. 6. Moderate to advanced symmetric atrophy temporal lobes and hippocampal formations. Notified Dr. Fidel ENRIQUEZ at 06/15/2022 12:51 PM. Laboratory Results WBC 7.4 10^3/uL (4.0-10.0) 06/15/22 03:29 RBC 4.66 10^6/uL (4.1-5.3) 06/15/22 03:29 Hgb 13.9 g/dL (11.7-16.6) 06/15/22 03:29 Hct 40.3 % (42.0-52.0) L 06/15/22 03:29 MCV 86.5 fl (80-94) D 06/15/22 03:29 MCH 29.8 pg (28.0-34.0) 06/15/22 03:29 MCHC 34.5 g/dL (30.0-36.0) D 06/15/22 03:29 RDW 12.2 % (12.1-15.1) 06/15/22 03:29 Plt Count 190 10^3/cmm (130-400) 06/15/22 03:29 MPV 9.8 fL (7.4-10.4) 06/15/22 03:29 Neut % (Auto) 67.5 % 06/15/22 03:29 Lymph % (Auto) 20.1 % 06/15/22 03:29 [place] % (Auto) 10.5 % 06/15/22 03:29 Eos % (Auto) 1.2 % 06/15/22 03:29 Baso % (Auto) 0.4 % 06/15/22 03:29 Neut # (Auto) 5.00 10^3/uL (1.8-7.7) 06/15/22 03:29 Lymph # (Auto) 1.5 10^3/uL (0.8-4.8) 06/15/22 03:29 [place] # (Auto) 0.8 10^3/uL (0.2-0.9) 06/15/22 03:29 Eos # (Auto) 0.1 10^3/uL (0.0-0.8) 06/15/22 03:29 Baso # (Auto) 0.0 10^3/uL (0.0-0.1) 06/15/22 03:29 Nucleated RBC % (auto) 0 % 06/15/22 03:29 Nucleated RBCs # 0.0 /100WBC 06/15/22 03:29 PT 13.30 SECONDS (12.1-14.9) 06/14/22 18:01 INR 0.98 (0.8-1.2) 06/14/22 18:01 APTT 30.2 SECONDS (23.9-36.7) 06/14/22 18:01 Sodium 135 mmol/L (136-145) L 06/15/22 03:29 Potassium 4.0 mmol/L (3.5-5.1) 06/15/22 03:29 Chloride 98 mmol/L (98-107) 06/15/22 03:29 Carbon Dioxide 27 mmol/L (22-29) 06/15/22 03:29 Anion Gap 14.0 (5-19) 06/15/22 03:29 BUN 23 mg/dL (8-23) 06/15/22 03:29 Creatinine 1.1 mg/dL (0.7-1.2) 06/15/22 03:29 GFR Calculation Not Reportable 06/15/22 03:29 Glucose 91 mg/dL (65-115) 06/15/22 03:29 POC Glucose 99 mg/dL (70-110) 06/14/22 17:33 Calculated Osmolality 283 mOsm/kg (285-295) L 06/15/22 03:29 Calcium 9.2 mg/dL (8.5-10.5) 06/15/22 03:29 Total Bilirubin 0.7 mg/dL (0.15-1.2) 06/14/22 18:01 AST 18 U/L (0-40) 06/14/22 18:01 ALT 9 U/L (0-41) 06/14/22 18:01 Alkaline Phosphatase 156 IU/L (40-130) H 06/14/22 18:01 Troponin T Baseline 8 ng/L (0-15) 06/14/22 18:01 Troponin T 120 Minute 6.87 ng/L (0-15) 06/14/22 20:36 Delta Troponin T -1.13 ABS# (0-10) L 06/14/22 20:36 Troponin T Hi Sens 6Hr 8.55 ng/L (0-15) 06/15/22 03:29 Troponin T Hi Sens 6Hr Delta 0.55 ng/L (0-12) 06/15/22 03:29 Total Protein 7.5 g/dL (6.6-8.7) 06/14/22 18:01 Albumin 4.0 g/dL (3.5-5.2) 06/14/22 18:01 Globulin 3.5 g/dL (1.3-4.6) 06/14/22 18:01 Prostate Specific Ag 485.300 ng/mL (0-4) H 06/15/22 03:29 Urine Color Yellow (Yellow) 06/14/22 17:46 Urine Appearance Clear (CLEAR) 06/14/22 17:46 Urine pH 5 (5-7) 06/14/22 17:46 Ur Specific [place] 1.025 (1.005-1.030) 06/14/22 17:46 Urine Protein Neg (Negative) 06/14/22 17:46 Urine Glucose (UA) Norm (Normal) 06/14/22 17:46 Urine Ketones 1+ (Negative) H 06/14/22 17:46 Urine Blood Neg (Negative) 06/14/22 17:46 Urine Nitrate Negative (Negative) 06/14/22 17:46 Urine Bilirubin Neg (Negative) 06/14/22 17:46 Urine Urobilinogen 1 mg/dL (Negative) H 06/14/22 17:46 Ur Leukocyte Esterase Negative (Negative) 06/14/22 17:46 Ur Random Sodium 67 mmol/L 06/14/22 17:48 Urine Creatinine 300 mg/dL (39-259) H 06/14/22 17:48 Vitals Last Vital Signs Temp 98.1 F 06/16/22 04:00 Pulse 67 06/16/22 04:00 Resp 14 06/16/22 04:00 BP 135/72 06/16/22 04:00 Pulse Ox 90 06/16/22 04:00 Discharge Plan Discharge Patient Disposition: Home Condition: Stable Prescriptions: New bicalutamide 50 mg Tablet 50 mg PO DAILY@0800 Qty: 60 2RF tramadol 50 mg tablet 25 mg PO Q6H PRN (Reason: pain) Qty: 30 2RF Continued alprazolam 0.25 mg tablet 0.25 mg PO TID PRN (Reason: Anxiety) 0RF omeprazole 40 mg capsule,delayed release(DR/EC) 40 mg PO DAILY@0700 0RF folic acid 1 mg tablet 1 mg PO DAILY 0RF methotrexate 2.5 mg/mL solution 2.5 mg PO DAILY 0RF metoprolol tartrate 50 mg tablet 50 mg PO DAILY@0700 0RF magnesium 200 mg tablet 200 mg PO DAILY@0700 0RF aspirin 81 mg tablet,delayed release (DR/EC) 81 mg PO DAILY@0700 0RF loratadine 10 mg capsule 10 mg PO DAILY@0700 0RF tamsulosin 0.4 mg capsule 0.4 mg PO DAILY 0RF benazepril 40 mg tablet 40 mg PO DAILY@0700 0RF finasteride 5 mg tablet 5 mg PO DAILY Qty: 90 0RF vitamin E 200 unit Capsule 200 unit PO DAILY Qty: 0 0RF cholecalciferol (vitamin D3) [Vitamin D3] 25 mcg (1,000 unit) Capsule 25 mcg PO DAILY Qty: 0 0RF B-complex with vitamin C Tablet 1 tab PO DAILY@0700 0RF Acidophilus 500 million cell Tablet 500 mmu cells PO DAILY 0RF temazepam 15 mg capsule 15 - 30 mg PO BEDTIME PRN (Reason: Sleep) 0RF Discharge Orders: Discharge Order (Routine); Ordered 06/16/22 Ordered By: Ana Parra Referrals: En Wells MD [Hospitalist] - 4-7 days (DR WELLS WILL BE CALLING WITH APPOINTMENT) Zach Byrd MD [Primary Care Provider] - 06/22/22 2:40 pm Discharge Diet: Cardiac Discharge Activity: Increase activity as tolerated Patient Instructions: Opioid Safety Discharge Attestations Time Spent in Discharge Care*: less than 30 min Quality Metrics Clinical Quality Measures [ No reported AMI, CVA or VTE this stay] Coding Level of Care Code Acute Chg FW DC note Diagnoses Prostate cancer metastatic to bone C61; C79.51 Prostate cancer metastatic to intrapelvic lymph node C61; C77.5 Altered mental status R41.82
[2022-06-16 06:28] LABS: Basophils % 0.2 %; Eosinophils # 0.2 10^3/uL (0.0-0.8); Eosinophils % 2.3 %; Hematocrit 41.4 % (42.0-52.0); Hemoglobin 14.2 g/dL (11.7-16.6); Lymphocytes # 1.5 10^3/uL (0.8-4.8); Lymphocytes % 22.9 %; Mean Corpuscular HGB Conc 34.3 g/dL (30.0-36.0); Mean Corpuscular Hemoglobin 29.9 pg (28.0-34.0); Mean Corpuscular Volume 87.2 fl (80-94); Mean Platelet Volume 10.1 fL (7.4-10.4); Monocytes # 0.8 10^3/uL (0.2-0.9); Monocytes % 11.5 %; Neutrophils # 4.11 10^3/uL (1.8-7.7); Neutrophils % 62.8 %; Nucleated Red Blood Cells % 0 %; Platelet Count 204 10^3/cmm (130-400); Red Blood Count 4.75 10^6/uL (4.1-5.3); Red Cell Distribution Width 12.1 % (12.1-15.1); White Blood Count 6.5 10^3/uL (4.0-10.0)
[2022-06-16 07:15] LABS: Anion Gap 13.2 (5-19); Blood Urea Nitrogen 20 mg/dL (8-23); Calcium 9.3 mg/dL (8.5-10.5); Carbon Dioxide 25 mmol/L (22-29); Chloride 100 mmol/L (98-107); Glucose 98 mg/dL (65-115); Osmolality Calculated 281 mOsm/kg (285-295); Potassium 4.2 mmol/L (3.5-5.1); Sodium 134 mmol/L (136-145)
[2022-06-16] MEDS: lactobacillus 1 Tablet 1 TAB PO (08:48)
[2022-06-16] MEDS: folic acid 1 mg Tablet PO (08:48)
[2022-06-16] MEDS: tamsulosin 0.4 mg Capsule PO (08:48)
[2022-06-16] MEDS: finasteride 5 mg Tablet PO (08:48)
--- NOTE | 2022-06-16 09:41 | FL_ITS ---
WS: [id number] LUMBAR PUNCTURE UNDER FLUOROSCOPY: OBTAIN CSF FOR ANALYSIS HISTORY: Prostate ca with mets COMPARISON: None available. FLUOROSCOPY TIME: 1min [id number] # of spot films: 2 Procedure, complications, and risk and benefits explained to the patient. Consent was obtained. Recen t laboratory work and medication are reviewed prior to procedure. Skin over the lumbar is cleansed with ChloraPrep and anesthetized with 1% buffered lidocaine. Access into the thecal sac is achieved. CSF is removed in a sterile manner and placed in the sterile tubes. Approximately 12 ml is removed without difficulty. CSF is clear. No complications are encountered. CSF this into the laboratory for analysis as requested. FL/FL guided lumbarpunc dx* [id number] IMPRESSION: Uncomplicated lumbar puncture for CSF.
--- NOTE | 2022-06-16 10:58 | PC.OT ---
OT evaluation withheld, patient is waiting on going home this morning.
[2022-06-16 17:04] LABS: Cyto Order Verification Order Verified
== END 2022-06-16 18:10 | disposition home or self-care (01) ==
LOC: ER 20:01 → MEDSURG 23:55
PROVIDERS: Emergency Medicine; Admitting Provider Internal Medicine; Emergency Provider Emergency Medicine; PCP Family Medicine; Visit Provider Internal Medicine
DX: C61 Malignant neoplasm of prostate (principal); C79.51 Secondary malignant neoplasm of bone; C77.5 Secondary and unspecified malignant neoplasm of intrapelvic lymph nodes; R41.82 Altered mental status, unspecified; R20.0 Anesthesia of skin; N40.1 Benign prostatic hyperplasia with lower urinary tract symptoms; R33.9 Retention of urine, unspecified; M06.9 Rheumatoid arthritis, unspecified; G93.9 Disorder of brain, unspecified; N17.9 Acute kidney failure, unspecified; Z79.82 Long term (current) use of aspirin; F41.9 Anxiety disorder, unspecified; K21.9 Gastro-esophageal reflux disease without esophagitis; I10 Essential (primary) hypertension
CPT/HCPCS: 36415; 36416; 62328; 70450; 70553; 71045; 71250; 74176; 77290; 77307; 77334; 77412; 77417; 80048; 80053; 80503; 81003; 82570; 82962; 84153; 84300; 84484; 85025; 85610; 85730; 88305; 89050; 93005; 96372; 97116; 97161; 99285; A9579; G0378; J1644

== ENCOUNTER 2022-06-25 09:22 | Oncology outpatient (recurring) (ONCR) | payer MEDICARE, SELFPAY ==
[2022-06-16 17:05] LABS: Appearance CSF CLEAR (CLEAR); Color CSF COLORLESS (COLORLESS)
[2022-06-16 17:11] LABS: Mononuclear WBC CSF % 91 % (50-90); Polynuclear Cells ,CSF # 0.001 10^3/uL (0-10); Polynuclear WBC CSF % 9 % (0-10); Red Blood Cell CSF 0 10^3/uL (0-0); White Blood Cell CSF 11 /uL (0-5)
[2022-06-16 17:23] LABS: Pathology Referral Yes
--- NOTE | 2022-06-17 | CT_ITS ---
Radiation Therapy Planning CT images; total exam DLP: 365.09 mGy-cm MTDD
--- NOTE | 2022-06-17 16:39 | N.ONRAD NP_ITS ---
Radiation Oncology New Patient Visit Patient: Deric Chavez MR#: [id number] : 1940 Age: 82 Sex: Male Dictated by: Dr. Robbie Ramires Date of Service: 06/17/2022 Referring Physician(s) : En Biggs M.D. Diagnosis: Prostate cancer Radiotherapy to date: Summary > No prior radiation therapy. Chief Complaint / History of Present Illness: Mr. Chavez is an 82-year-old man who presented to the ER with aphasia. He had noted word searching and some numbness of his arms over the previous few weeks. By the time he reached the emergency room his neurological complaints had resolved. He underwent a CT of the head which revealed effacement of the sulci of the left frontal lobe, a finding that was not present on the CT performed in January 2022. He had an MR of the brain which showed evidence of leptomeningeal disease over the same area. No brain masses were detected. He was seen by Dr. Golden who had previously evaluated him for BPH. Patient's prostate was very abnormal, his PSA was 485, and further imaging revealed evidence of sclerotic bone metastases. Considering these findings, it was thought that the patient probably had leptomeningeal disease from metastatic prostate cancer. An LP was performed. The fluid was clear. After centrifuging, there were cells that precipitated out. They appeared malignant but there were not enough cells to perform PSA staining. Dr. Biggs and I reviewed Mr. Chavez's brain imaging and we discussed his case personally. We feel that he should receive whole brain radiation. Mr. Chavez is referred for evaluation, simulation, and treatment planning for whole brain radiation. Current Medications: Alprazolam 0.25, omeprazole 40, folic acid 1, methotrexate 2.5, metoprolol 50, magnesium 200, aspirin 81, loratadine 10, tamsulosin 0.4, benazepril 40 mg, finasteride 5, vitamin E 200, D3 25 MCG, B complex with C, acidophilus 500, temazepam 15. Allergies: No Known Allergies Medical History: No history of collagen vascular disease. No previous radiation therapy. Anxiety, BPH, GERD, hypertension, rheumatoid arthritis. Surgical History: Healed fractures, tonsillectomy, teeth Family History: Social History: . Salvatore, , never smoked, never drank,. Current Complaints / Review of Systems: . Vital Signs: Performed on 06/17/2022 1:55 PM BMI - 29.505 kg/m2 (high), Height - 66 in, Weight - 182.8 lbs, Temperature - 97.4 f, Pulse - 86 /min, Respiration - 18 /min, O2 Sat - 98 %, Pain - 0, Fatigue - 5 and BP - 140/ 68 mm(hg). Physical Exam: General: Alert, oriented, in no acute distress. Affect is normal. Answers to questions are appropriate. Neurological: Cranial nerves II through XII intact. Finger-nose exam is accurate but very slow on the right. Normal on the left. Mcuq-mg-btgf exam normal. Gait was steady without assistance, but he had some difficulty using the step off the exam table. Neck: Supple. No masses. No cervical or supraclavicular lymphadenopathy. Lungs: Clear to percussion. No rales rhonchi or wheezes. Heart: Regular rhythm. No murmur or gallop or rub. Abdomen no distention. No organomegaly or mass or tenderness. Musculoskeletal no bone tenderness detected. Performance Status: ECOG 3 Pathology: Lab: Imaging: See HPI MRI of the brain suggest a metastasis to C3 Impression: The evidence is overwhelming that Mr. Chavez has metastatic carcinoma of the prostate. I do not feel that a biopsy of the prostate itself is needed. Dr. Biggs and I have discussed his case and feel that whole brain radiation is appropriate. Rationale for this treatment was discussed with Mr. Chavez and his fianc???e. I suggested that we place him on steroids to reduce acute effects from radiation. I discussed this with Dr. Biggs since the patient is on methotrexate. He feels that her it is appropriate to use the steroids. We will prescribe dexamethasone 4 mg 3 times a day. He will receive 2 weeks of radiation, 30 Adam in 10 fractions. I discussed the acute side effects. I discussed in detail in detail the possibility of cognitive decline. The patient wishes to proceed with treatment as recommended. The patient will also be started on Casodex. Plan: Simulation performed. Start whole brain radiation on Tuesday. He will start steroids this . Signed by: 06/17/2022 4:37:49 PM <<Signature on File>> Time spent with patient: CPT Code: CPT Code:
--- NOTE | 2022-06-22 12:07 | ONCRAD TMN_ITS ---
Radiation Oncology Weekly Treatment Management Patient: Scott Leos MR#: [id number] : 1940 Attending Physician: Dr. Guanako Ramires Date of Service: 06/22/2022 Referring Physician(s) : En Biggs M.D. Diagnosis: Prostate cancer with leptomeningeal spread Radiotherapy to date: Course: WholeBrain, Treatment Site: WholeBrain, Ref. ID: Brain, Energy: 6X, Dose/Fx (cGy): 300, #Fx: 2 / 10, Dose Correction (cGy): 0, Total Dose (cGy): 600, Start Date: 06/21/2022, Elapsed Days: 1 Reason for visit: The patient is being seen today as part of their regularly scheduled weekly on treatment visits to assess for acute toxicities from radiotherapy. Review of Systems: No complaints at all. He is very cheerful and enthusiastic. His legs are stronger. Normal strength in his upper extremities. Vital Signs: Performed on 06/22/2022 11:52 AM BMI - 30.425 kg/m2 (high), Height - 66 in, Weight - 188.5 lbs, Temperature - 97.1 f, Pulse - 54 /min (low), Respiration - 18 /min, O2 Sat - 96 %, Pain - 0, Fatigue - 0 and BP - 143/ 69 mm(hg)(high/). Physical Exam: Alert, oriented, no distress. Breathing quiet and unlabored. Normal movement and strength in extremities. Ambulatory without assistance. Imaging: Radiation therapy imaging related to accurate target localization (i.e. KV, MV and CBCT) was reviewed. Appropriate changes, if any, were made to ensure treatment accuracy. Plan: Continue treatment as planned. He will be given a written taper for his dexamethasone. He understands to take it with food. Signed by: Dr. Guanako Ramires 06/22/2022 12:06:58 PM
== END 2022-06-27 23:59 | disposition home or self-care (01) ==
PROVIDERS: Pathology Anatomic Pathology & Clinical Pathology; PCP Family Medicine; Visit Provider Specialist
DX: Z51.0 Encounter for antineoplastic radiation therapy (principal); C61 Malignant neoplasm of prostate
CPT/HCPCS: 77263; 77290; 77307; 77334; 77412; 77417; 80503; 89050

== ENCOUNTER → 2022-07-05 15:00 | Outpatient (BNVA) | payer MEDICARE, SELFPAY | PROVIDERS: PCP Family Medicine; Visit Provider Internal Medicine Hematology & Oncology | DX: C61 Malignant neoplasm of prostate (principal); C79.51 Secondary malignant neoplasm of bone; C79.31 Secondary malignant neoplasm of brain; Z79.899 Other long term (current) drug therapy | CPT/HCPCS: 77336 ==

== ENCOUNTER → 2022-07-07 14:00 | Outpatient (BNVA) | payer MEDICARE, SELFPAY | PROVIDERS: PCP Family Medicine; Visit Provider Urology | DX: C61 Malignant neoplasm of prostate (principal); C79.51 Secondary malignant neoplasm of bone; R33.8 Other retention of urine; N40.1 Benign prostatic hyperplasia with lower urinary tract symptoms; C77.5 Secondary and unspecified malignant neoplasm of intrapelvic lymph nodes; C79.9 Secondary malignant neoplasm of unspecified site | CPT/HCPCS: 52000; 55700; 76872; 88305; 88342; 99213; J1580 ==

== ENCOUNTER 2022-07-16 08:18 | Inpatient (IN) | payer MEDICARE, SELFPAY ==
[2022-07-16 11:09] VITALS: BMI 27.9
--- NOTE | 2022-07-16 11:18 | CTR_ITS ---
PROCEDURE INFORMATION: Exam: CT Head Without Contrast Exam date and time: 07/16/2022 5:31 PM Age: 82 years old Clinical indication: Altered mental status/memory loss; Additional info: Confusion TECHNIQUE: Imaging protocol: Computed tomography of the head without contrast. Radiation optimization: All CT scans at this facility use at least one of these dose optimization techniques: automated exposure control; mA and/or kV adjustment per patient size (includes targeted exams where dose is matched to clinical indication); or iterative reconstruction. COMPARISON: MR head wo/w con [id number] 06/15/2022 10:21 AM, CT chest abdomen pelvis 06/14/2022 RADIATION DOSE METRICS: Total DLP (mGy-cm): 1254.87 FINDINGS: Brain: No hemorrhage. No edema. Moderate diffuse cerebral atrophy and mild sequela of chronic small vessel ischemic disease. No mass effect. Cerebral ventricles: No ventriculomegaly. Paranasal sinuses: Visualized sinuses are unremarkable. No fluid levels. Mastoid air cells: Visualized mastoid air cells are well aerated. Bones/joints: Focal sclerotic lesion in the left mandibular condyle, likely a metastatic lesion given history and prior imaging. No acute fracture. Soft tissues: Unremarkable. CT/CT head wo con* [id number] IMPRESSION: 1. No acute intracranial abnormality. 2. Moderate diffuse cerebral atrophy and mild sequela of chronic small vessel ischemic disease.
--- NOTE | 2022-07-16 11:24 | PM.HP ---
Providers/Chief Complaint Admitting Physician: Trupti Cai MD Primary Care Provider: Zach Byrd MD Chief Complaint: confusion History of Present Illness Deric Chavez is a 82 year old male with metastatic prostate cancer with leptomeningeal spread and recent brain irradiation who presents from the oncology office with history of confusion, acute encephalopathy. Significant other with him reports that he has been confused over the last several days. He has had hallucinations at night. He was having issues with urinary retention and a Tidwell catheter was placed recently. It has not been draining well recently, and there has been some blood. They do not believe he has had any fevers. He did get started on Augmentin yesterday for possible UTI. Tidwell catheter was most recently replaced July 07. After treatment with radiation for his leptomeningeal spread, dexamethasone he was on previously had been weaned. This was restarted yesterday through oncology clinic when the Augmentin was initiated. He has had some nausea, but no vomiting. No chest discomfort. No headache. History is somewhat difficult secondary to confusion but he is fully conversant and seems capable and some of his history. Review of Systems General: Reports: 10 or more systems reviewed and unremarkable except in HPI and below Const: Reports: chills and fatigue; Denies: fever(s) Eyes: Denies: change in vision ENMT: Denies: throat pain Card: Denies: chest pain Resp: Denies: dyspnea GI: Reports: nausea; Denies: abdominal pain or vomiting : Reports: difficulty urinating Musc: Denies: neck pain Skin/Breast: Denies: rash or pruritus Neuro: Reports: confusion; Denies: headache(s) Psych: Denies: anxiety or depression Endo: Denies: polyuria Agustin/Lymph: Denies: easy bruising All/Imm: Denies: urticaria Medications/Allergies Home Medications Medication Instructions Recorded Confirmed Last Taken Type finasteride 5 mg tablet 5 mg PO DAILY #90 tabs 06/10/20 07/15/22 06/14/22 Rx B-complex with vitamin C 1 tab PO DAILY@0700 02/09/21 07/15/22 06/14/22 History alprazolam 0.25 mg tablet 0.25 mg PO TID PRN Anxiety 02/09/21 07/15/22 06/14/22 History aspirin 81 mg tablet,delayed 81 mg PO DAILY@0700 03/15/21 08/18/22 07/18/22 History release benazepril 40 mg tablet 40 mg PO DAILY@0702/09/21 07/15/22 06/14/22 History cholecalciferol (vitamin D3) 25 25 mcg PO DAILY ##0 02/09/21 07/15/22 06/14/22 History mcg (1,000 unit) capsule (Vitamin D3) folic acid 1 mg tablet 1 mg PO DAILY 02/09/21 07/15/22 06/14/22 History loratadine 10 mg capsule 10 mg PO DAILY@0702/09/21 07/15/22 06/14/22 History magnesium 200 mg tablet 200 mg PO DAILY@0702/09/21 07/15/22 06/14/22 History methotrexate 2.5 mg/mL oral 2.5 mg PO DAILY 02/09/21 07/15/22 Unknown History solution metoprolol tartrate 50 mg tablet 50 mg PO DAILY@0702/09/21 07/15/22 06/14/22 History omeprazole 40 mg capsule,delayed 40 mg PO DAILY@0702/09/21 07/15/22 06/14/22 History release vitamin E 200 unit capsule 200 unit PO DAILY ##0 02/09/21 07/15/22 06/14/22 History Lactobacillus acidophilus 500 500 mmu cells PO DAILY 06/14/22 07/15/22 06/14/22 History million cell tablet temazepam 15 mg capsule 15 - 30 mg PO BEDTIME PRN Sleep 06/14/22 07/15/22 Unknown History bicalutamide 50 mg tablet 50 mg PO DAILY@0800 #60 tabs 06/16/22 07/15/22 Unknown Rx tramadol 50 mg tablet 25 mg PO Q6H PRN pain #30 tabs 06/16/22 07/15/22 Unknown Rx dexamethasone 4 mg tablet 4 mg PO TID #50 tabs 06/17/22 07/15/22 Unknown Rx diazepam 10 mg tablet 10 mg PO ONCE #1 tab 07/02/22 07/15/22 Unknown Rx levofloxacin 500 mg tablet 500 mg PO DAILY #4 tabs 07/02/22 07/15/22 Unknown Rx tamsulosin 0.4 mg capsule 0.4 mg PO DAILY #180 caps 07/02/22 07/15/22 Unknown Rx Compazine 10 mg tablet 10 mg PO Q6H PRN nausea and 07/12/22 07/15/22 Unknown Rx (prochlorperazine maleate) vomiting #30 tabs lorazepam 0.5 mg tablet 0.5 mg PO TID PRN severe 07/12/22 07/15/22 Unknown Rx nausea/vomiting #30 tabs amoxicillin 875 mg-potassium 1 tab PO BID 7 days #14 tabs 07/15/22 07/15/22 Unknown Rx clavulanate 125 mg tablet dexamethasone 4 mg tablet 4 mg PO DAILY #30 tabs 07/15/22 07/15/22 Unknown Rx apalutamide 60 mg tablet 240 mg PO DAILY #112 tabs 07/16/22 Unknown Rx Allergies Allergy/AdvReac Type Severity Reaction Status Date / Time No Known Allergies Allergy Verified 07/15/22 09:58 PFSH Acute PFSH: Medical History Anxiety Enlarged prostate with lower urinary tract symptoms (LUTS) GERD (gastroesophageal reflux disease) Hypertension Meningeal carcinomatosis Prostate cancer Rheumatoid arthritis Surgical History Heel fracture bilateral from fall -- bilateral repair with hardware History of hernia repair (02/09/21) Repair of incarcerated ventral hernia History of oral surgery teeth extraction History of tonsillectomy Family History Other Family history unknown Social History Smoking and tobacco status: former smoker Alcohol intake: never Marital status: / Marital status details: The patient's spouse around 2014 Current occupational status: retired 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 However, confusion is evident. Vital signs reviewed. HEENT: Pupils equally round. Oropharynx clear. Atraumatic and normocephalic. Neck is supple no lymphadenopathy or thyromegaly Cardiovascular regular rate and rhythm without murmur, no S3 or S4 Lungs clear no wheezing or crackles Abdomen is soft. Slight tenderness suprapubic area with distended bladder noted. No organomegaly demonstrates normal male, Tidwell catheter appears to be senior living out with some bloody drainage Extremities no cyanosis clubbing or edema, cap refill brisk Skin no rash Neuro no obvious focal deficits. Data Other Labs: Laboratory from yesterday demonstrated a normal hemoglobin, normal platelet count, sodium 129, potassium 5.9, CO2 24, creatinine 2.8, alk phos of 175, albumin of 3.3 PSA 46 Urinalysis too numerous to count red blood cells and 25-40 white blood cells A&P Assessment and plan (1) Acute metabolic encephalopathy: Likely multifactorial. He has had whole brain irradiation. He was recently taken off dexamethasone. He has known leptomeningeal metastasis. He now has acute kidney injury, possible UTI. Check CT head, noncontrast Check TSH and cortisol levels Continue dexamethasone initiated yesterday Close follow-up Status: Acute (2) Acute renal failure: Evidence of acute renal insufficiency with hyperkalemia yesterday Repeat laboratory today Tidwell was malpositioned, this was taken out and reinserted with drainage of bloody urine. Obtain urinalysis, urine culture Check magnesium and phosphate levels Avoid renal toxic medication Check CK Hold patient's DALY inhibitor Status: Acute (3) Hyperkalemia: Reassessed today, treat as appropriate after potassium level known Status: Acute (4) UTI (urinary tract infection): Initiate Rocephin Urine and blood cultures Status: Acute (5) Hematuria: Malpositioned catheter removed, reinserted, and irrigated. Monitor for any clotting. Status: Acute (6) Urinary retention: Continue Tidwell Status: Acute (7) Meningeal carcinomatosis: Dexamethasone reinitiated, taper as tolerated by improvement in mental function Status: Acute (8) Prostate cancer metastatic to multiple sites: Followed by oncology Status: Acute Plan Multiple other medical problems as outlined in past medical history Allow natural . Although patient has some confusion he is adamant about this as is his significant other. Anticoagulation contraindicated secondary to hematuria. SCDs placed Attestations Medical Necessity Statement*: Will need greater than 2 midnight stay for evaluation and treatment of hyperkalemia, acute kidney injury, encephalopathy, etc. Coding Level of Care Code Acute Pump Operator Byproducts for [facility] Diagnoses Acute metabolic encephalopathy G93.41 Acute renal failure N17.9 Hyperkalemia E87.5 UTI (urinary tract infection) N39.0 Hematuria R31.9 Urinary retention R33.9 Meningeal carcinomatosis C79.49; C80.1 Prostate cancer metastatic to multiple sites C61
[2022-07-16] MEDS: cefTRIAXone 1,000 MG in sodium chloride 0.9% (plus) 50 ML 100 MG IV (11:38)
[2022-07-16] MEDS: sodium chloride 0.9% 1,000 ML 100 ML IV ×2 (11:38→22:25)
[2022-07-16 11:41] VITALS: BP 97/53; PULSE 78; RESP 15; TEMP 36.5; O2SAT 96
[2022-07-16 13:49] LABS: Basophils % 0.2 %; Hematocrit 47.1 % (42.0-52.0); Hemoglobin 15.6 g/dL (11.7-16.6); Lymphocytes # 0.4 10^3/uL (0.8-4.8); Lymphocytes % 5.8 %; Mean Corpuscular HGB Conc 33.1 g/dL (30.0-36.0); Mean Corpuscular Hemoglobin 30.1 pg (28.0-34.0); Mean Corpuscular Volume 90.9 fl (80-94); Mean Platelet Volume 9.5 fL (7.4-10.4); Monocytes # 0.4 10^3/uL (0.2-0.9); Neutrophils # 5.34 10^3/uL (1.8-7.7); Neutrophils % 86.5 %; Nucleated Red Blood Cells % 0 %; Platelet Count 134 10^3/cmm (130-400); Red Blood Count 5.18 10^6/uL (4.1-5.3); Red Cell Distribution Width 13.1 % (12.1-15.1); White Blood Count 6.2 10^3/uL (4.0-10.0)
[2022-07-16 14:11] LABS: Slide Review Slide Review Perform
[2022-07-16 14:18] LABS: Alanine Aminotransferase 13 U/L (0-41); Albumin Level 3.5 g/dL (3.5-5.2); Alkaline Phosphatase 170 U/L (40-130); Blood Urea Nitrogen 34 mg/dL (8-23); Calcium 8.3 mg/dL (8.5-10.5); Carbon Dioxide 17 mmol/L (22-29); Chloride 96 mmol/L (98-107); Globulin 2.3 g/dL (1.3-4.6); Glucose 89 mg/dL (65-115); Magnesium 3.7 mg/dL (1.7-2.3); Osmolality Calculated 277 mOsm/kg (285-295); Phosphorus 3.9 mg/dL (2.5-4.5); Sodium 130 mmol/L (136-145); Thyroid Stimulating Hormone 1.37 uIU/mL (0.27-4.20); Total Bilirubin 0.6 mg/dL (0.15-1.2); Total Protein 5.8 g/dL (6.6-8.7)
[2022-07-16 14:24] LABS: Anion Gap 22.8 (5-19); Aspartate Amino Transferase 26 U/L (0-40); Potassium 5.8 mmol/L (3.5-5.1)
[2022-07-16 14:28] LABS: Creatine Phosphokinase 415 U/L (39-308)
--- NOTE | 2022-07-16 14:31 | ECG_ITS ---
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 Measurements Intervals [place] Rate: 71 P: 65 [place]: 190 QRS: 3 QRSD: 83 T: 21 QT: 379 QTc: 412 Interpretive Statements SINUS RHYTHM WITH SINUS ARRHYTHMIA SEPTAL MYOCARDIAL INFARCTION , PROBABLY OLD [40+ ms Q WAVE IN V1/V2] Compared to ECG 06/14/2022 20:34:04 No significant changes Electronically Signed On 07-16-2022 17:48:58 CDT by Terry Canas M.D. [id number]
[2022-07-16] MEDS: dexamethasone 4 mg Tablet PO ×2 (14:53→22:26)
[2022-07-16] MEDS: sodium polystyrene sulfonate 15 gm/60 mL Btl 30 GM PO (14:53)
[2022-07-16 15:07] LABS: Cortisol Random 1.77 ug/dL (2.47-19.5)
--- NOTE | 2022-07-16 15:53 | P.CONIM_ITS ---
Providers/Reason For Consult Consulting Physician/Specialty*: Urology/Golden Reason for Consult*: Gross hematuria with catheter malfunction Requesting Physician: Dr. 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 Has widespread metastatic disease. He developed increasing gross hematuria. Catheter was placed which he apparently pulled out leading to further urethral bleeding. Replacement catheter was not draining very well and I was consulted for further evaluation. Additional information includes evidence of renal failure. Yesterday his creatinine was 2.8 today was 4.1. He follows with Dr. Biggs and oncology for his metastatic prostate cancer. Has had some increasing confusion. Procedure: Bedside flexible cystoscopy with clot evacuation 16 [place] Tidwell catheter was removed. It was not draining very well. Well-lubricated flexible cystoscope was utilized after prepped and draped in the usual sterile fashion. Catheter was advanced into the urethra and under videoscopy into the bladder. There were multiple areas of catheter related withdrawal trauma but the true lumen was able to be identified. Most of the trauma appear to be in the bulbar urethra. Prostate appear to be intact friable. There were multiple clots in the bladder. Utilizing sterile water the bladder was irrigated with multiple clots returned. Urine looked clear. A flexible tip guidewire was advanced through the flexible scope into the bladder and the scope removed. A 22 [place] Couvelaire a three-way Tidwell catheter was converted to a [place] tip catheter. And passed over the guidewire. He tolerated it well. Balloon was inflated and confirmed to be f unctioning and then the wire was removed. Bladder was then manually irrigated with a 60 cc cath tip syringe and some additional clots were also removed. After all clots were cleared he was placed to CBI. Recommendations: Maintain CBI and taper off as tolerated. Review of Systems Const: Reports: chills and malaise Eyes: Denies: eye discharge ENMT: Denies: hoarseness Card: Denies: chest pain Resp: Denies: productive cough GI: Reports: nausea; Denies: vomiting : Reports: difficulty urinating and hematuria Musc: Denies: joint redness Skin/Breast: Reports: erythema; Denies: jaundice Neuro: Reports: confusion; Denies: Slurred speech present Psych: Denies: anxiety Endo: Reports: hot flashes Agustin/Lymph: Reports: easy bruising and easy bleeding All/Imm: Denies: acute wheezing Medications/Allergies Home Medications Medication Instructions Recorded Confirmed Last Taken Type alprazolam 0.25 mg tablet 0.25 mg PO TID PRN Anxiety 02/09/21 07/16/22 07/16/22 09:00 History benazepril 40 mg tablet 40 mg PO DAILY@0700 02/09/21 07/16/22 07/16/22 09:00 History cholecalciferol (vitamin D3) 25 25 mcg PO DAILY ##0 02/09/21 07/16/22 07/16/22 09:00 History mcg (1,000 unit) capsule (Vitamin D3) magnesium 200 mg tablet 200 mg PO DAILY@0700 02/09/21 07/16/22 07/16/22 09:00 History methotrexate 2.5 mg/mL oral 2.5 mg PO DAILY 02/09/21 07/16/22 07/16/22 09:00 History solution metoprolol tartrate 50 mg tablet 50 mg PO DAILY@0700 02/09/21 07/16/22 07/16/22 09:00 History omeprazole 40 mg capsule,delayed 40 mg PO DAILY@0700 02/09/21 07/16/22 07/16/22 09:00 History release Lactobacillus acidophilus 500 500 mmu cells PO DAILY 06/14/22 07/16/22 07/16/22 09:00 History million cell tablet temazepam 15 mg capsule 15 - 30 mg PO BEDTIME PRN Sleep 06/14/22 07/16/22 07/15/22 22:00 History bicalutamide 50 mg tablet 50 mg PO DAILY@0800 #60 tabs 06/16/22 07/16/22 07/16/22 09:00 Rx tramadol 50 mg tablet 25 mg PO Q6H PRN pain #30 tabs 06/16/22 07/16/22 07/15/22 22:00 Rx dexamethasone 4 mg tablet 4 mg PO TID #50 tabs 06/17/22 07/16/22 07/16/22 09:00 Rx levofloxacin 500 mg tablet 500 mg PO DAILY #4 tabs 07/02/22 07/16/22 07/16/22 09:00 Rx Compazine 10 mg tablet 10 mg PO Q6H PRN nausea and 07/12/22 07/16/22 07/16/22 09:00 Rx (prochlorperazine maleate) vomiting #30 tabs amoxicillin 875 mg-potassium 1 tab PO BID 7 days #14 tabs 07/15/22 07/16/22 07/16/22 09:00 Rx clavulanate 125 mg tablet apalutamide 60 mg tablet 240 mg PO DAILY #112 tabs 07/16/22 07/16/22 07/16/22 09:00 Rx Allergies Allergy/AdvReac Type Severity Reaction Status Date / Time No Known Allergies Allergy Verified 07/15/22 09:58 Current Medications Generic Name Dose Route Start Last Admin Trade Name Freq PRN Reason Stop Dose Admin Dexamethasone 4 mg 07/16/22 15:00 07/16/22 14:53 Dexamethasone 4 Mg Tablet PO 4 mg TID SHAZIA Administration Sodium Chloride 1,000 mls @ 100 mls/hr 07/16/22 11:30 07/16/22 11:38 Sodium Chloride 0.9% IV 100 mls/hr .Q10H SHAZIA Administration Ceftriaxone Sodium 1,000 mg/ 50 mls @ 100 mls/hr 07/16/22 11:30 07/16/22 12:08 Sodium Chloride IV Infused Q24H SHAZIA Infusion Protocol PFSH Acute PFSH: Medical History Anxiety Enlarged prostate with lower urinary tract symptoms (LUTS) GERD (gastroesophageal reflux disease) Hypertension Meningeal carcinomatosis Prostate cancer Rheumatoid arthritis Surgical History Heel fracture bilateral from fall -- bilateral repair with hardware History of hernia repair (02/09/21) Repair of incarcerated ventral hernia History of oral surgery teeth extraction History of tonsillectomy Family History Other Family history unknown Social History Smoking and tobacco status: former smoker Alcohol intake: never Marital status: / Marital status details: The patient's spouse around 2014 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 occupational status: retired 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 History of recent travel: No Vitals/I&O/Wt Last Vital Signs Temp 97.7 F 07/16/22 11:41 Pulse 78 07/16/22 11:41 Resp 15 07/16/22 11:41 BP 97/53 07/16/22 11:41 Pulse Ox 96 07/16/22 11:41 O2 Del Method 07/16/22 11:41 07/16/22 07/16/22 07/16/22 06:59 14:59 22:59 Intake Total 290 / 290 Balance 290 / 290 Physical Exam Const: COMMON NORMALS: no acute distress, alert and well nourished GENERAL APPEARANCE: well kempt and well developed HENMT: COMMON NORMALS: normocephalic and atraumatic HEAD & SCALP: normocephalic and atraumatic Eye: COMMON NORMALS: conjunctivae normal and no scleral icterus CONJUNCTIVA: Yes conjunctivae normal Neck/C-Spine: COMMON NORMALS: full ROM Lymph: LYMPHATIC: no lymphadenopathy noted Resp: COMMON NORMALS: normal respiratory effort EFFORT & INSPECTION: No labored and No Actively coughing Cardio: COMMON NORMALS: regular rate RATE: regular rate GI: OTHER: Soft nontender no palpable masses, suprapubic fullness consistent with bladder distention. No CVA tenderness. : OTHER: Normal phallus, circumcised. Scrotum grossly normal. Does have blood at the meatus. No severe active bleeding. Extremity: COMMON NORMALS: no clubbing, cyanosis or edema Neuro: SENSORIUM/ORIENTATION: Yes alert Psych: COMMON NORMALS: mental status grossly normal APPEARANCE: Yes grossly normal and Yes well kempt ATTITUDE: Yes calm and Yes engaged Skin: COMMON NORMALS: no jaundice Urinary Catheter Management: Coude: Cath Placed During This Visit: yes Urinary Catheter Date of Insertion: 07/16/22 Urinary Catheter Time of Insertion: 13:53 Data : 07/17/22 04:22 07/17/22 04:22 Micro: Microbiology 07/16/22 13:30 Blood Culture - Preliminary Blood SPECIMEN COLLECTED 07/16/22 13:17 Blood Culture - Preliminary Blood SPECIMEN COLLECTED A&P Assessment and plan (1) Hematuria: Multiple clots in the bladder, irrigated free. Urethral trauma from forcible c atheter withdrawal by the patient. Was able to manipulate the scope into the bladder. 20 [place] Couvelaire three-way Tidwell catheter with 30 cc placed in the balloon. Manually irrigated clots out. Began CBI after all the clots were cleared. Status: Acute (2) Prostate cancer metastatic to multiple sites: On systemic therapy. Status: Acute (3) Acute renal failure: Status: Acute Coding Level of Care Code Acute Radiology Assistant for [facility] Fwd Exam Comprehensive Diagnoses Hematuria R31.9 Prostate cancer metastatic to multiple sites C61 Acute renal failure N17.9
[2022-07-16 16:00] VITALS: BP 106/57; PULSE 98; RESP 16; TEMP 36.8; O2SAT 94
[2022-07-16 19:18] LABS: Blood Urea Nitrogen 33 mg/dL (8-23); Calcium 8.5 mg/dL (8.5-10.5); Carbon Dioxide 22 mmol/L (22-29); Chloride 97 mmol/L (98-107); Glucose 95 mg/dL (65-115); Osmolality Calculated 285 mOsm/kg (285-295); Sodium 134 mmol/L (136-145)
[2022-07-16 19:22] LABS: Anion Gap 20.3 (5-19); Potassium 5.3 mmol/L (3.5-5.1)
[2022-07-16 20:00] VITALS: BP 123/53; PULSE 69; RESP 18; TEMP 36.8; O2SAT 94
[2022-07-17] VITALS (7 sets, daily range): BP systolic 121–143; BP diastolic 49–81; PULSE 65–105; RESP 16–18; TEMP 36.4–37.2; O2SAT 90–97
[2022-07-17 05:14] LABS: Hematocrit 36.7 % (42.0-52.0); Lymphocytes # 0.3 10^3/uL (0.8-4.8); Lymphocytes % 3.6 %; Mean Corpuscular HGB Conc 32.7 g/dL (30.0-36.0); Mean Corpuscular Hemoglobin 30.3 pg (28.0-34.0); Mean Corpuscular Volume 92.7 fl (80-94); Monocytes # 0.3 10^3/uL (0.2-0.9); Monocytes % 3.3 %; Neutrophils # 7.19 10^3/uL (1.8-7.7); Neutrophils % 92.6 %; Nucleated Red Blood Cells % 0 %; Platelet Count 258 10^3/cmm (130-400); Red Blood Count 3.96 10^6/uL (4.1-5.3); Red Cell Distribution Width 12.9 % (12.1-15.1); White Blood Count 7.8 10^3/uL (4.0-10.0)
[2022-07-17 05:43] LABS: Alanine Aminotransferase 13 U/L (0-41); Albumin Level 3.4 g/dL (3.5-5.2); Alkaline Phosphatase 182 U/L (40-130); Anion Gap 18.9 (5-19); Aspartate Amino Transferase 24 U/L (0-40); Blood Urea Nitrogen 28 mg/dL (8-23); Calcium 8.4 mg/dL (8.5-10.5); Carbon Dioxide 21 mmol/L (22-29); Chloride 99 mmol/L (98-107); Creatine Phosphokinase 285 U/L (39-308); Globulin 2.6 g/dL (1.3-4.6); Glucose 99 mg/dL (65-115); Osmolality Calculated 284 mOsm/kg (285-295); Potassium 4.9 mmol/L (3.5-5.1); Sodium 134 mmol/L (136-145); Total Bilirubin 0.6 mg/dL (0.15-1.2)
--- NOTE | 2022-07-17 08:52 | PM.PN ---
Subjective Subjective: Urology follow-up: Catheter has been working well overnight with no severe recurrent bleeding. CBI rate has been turned down substantially. He is still quite confused Denies any lower abdominal pain or feeling of incomplete emptying. Has been tugging on his cardiac monitoring leads. Does not look like he is caused any issues related to the catheter like he did yesterday. Catheter was resecured to a Chung strap as well as the StatLock. Recommendations: 1. Can wean CBI down as tolerated 2. We will maintain Vitals/I&O/Wt Last Vital Signs Temp 98.9 F 07/17/22 04:00 Pulse 105 H 07/17/22 04:00 Resp 18 07/17/22 04:00 BP 138/81 07/17/22 04:00 Pulse Ox 90 07/17/22 04:00 O2 Del Method 07/17/22 00:00 07/16/22 07/17/22 07/17/22 22:59 06:59 14:59 Intake Total 1000 / 1290 600 / 1890 Output Total 1650 / 1650 Balance 1000 / 1290 -1050 / 240 Weight last 48 hrs Weight 172 lb 8 oz Weight 178 lb 6 oz Physical Exam Const: COMMON NORMALS: no acute distress, alert and well nourished GENERAL APPEARANCE: well kempt and well developed HENMT: OTHER: Discoloration of the scalp from prior radiation Eye: COMMON NORMALS: no scleral icterus Neck/C-Spine: COMMON NORMALS: full ROM Resp: COMMON NORMALS: normal respiratory effort EFFORT & INSPECTION: No labored and No Actively coughing Cardio: COMMON NORMALS: regular rate RATE: regular rate GI: OTHER: Soft nontender no palpable masses, suprapubic fullness consistent with bladder distention. No CVA tenderness. : OTHER: No more blood around the catheter. Dental exam normal. Extremity: COMMON NORMALS: no clubbing, cyanosis or edema Neuro: SENSORIUM/ORIENTATION: Yes alert OTHER: Confused Psych: COMMON NORMALS: mental status grossly normal APPEARANCE: Yes grossly normal and Yes well kempt ATTITUDE: Yes calm and Yes engaged INSIGHT: Poor insight present (Psych) JUDGEMENT: Limited judgement present (Psych) Skin: COMMON NORMALS: no jaundice Urinary Catheter Management: Coude: Cath Placed During This Visit: yes Reason for Continuing Indwelling Catheter: Acute Urinary Retention or Obstruction Urinary Catheter Date of Insertion: 07/16/22 Urinary Catheter Time of Insertion: 13:53 Data : 07/17/22 04:22 07/17/22 04:22 Micro: Microbiology 07/16/22 13:30 Blood Culture - Preliminary Blood SPECIMEN COLLECTED 07/16/22 13:17 Blood Culture - Preliminary Blood SPECIMEN COLLECTED A&P Assessment and plan (1) Acute urinary retention: Catheter functioning now. Status: Acute (2) Prostate cancer metastatic to multiple sites: On systemic therapy Status: Acute (3) Hematuria: Resolved Status: Acute (4) Urethral bleeding: Status: Acute Attestations Medical Necessity Statement*: See attending Coding Level of Care Code Acute Environmental Protection Officer for [employer] [facility] Diagnoses Acute urinary retention R33.8 Prostate cancer metastatic to multiple sites C61 Hematuria R31.9 Urethral bleeding N36.8
[2022-07-17] MEDS: dexamethasone 4 mg Tablet PO ×3 (09:42→21:56)
[2022-07-17] MEDS: ALPRAZolam 0.5 mg Tablet 0.25 MG PO (09:43)
[2022-07-17] MEDS: pantoprazole DR 40 mg Tablet PO (09:43)
[2022-07-17] MEDS: cefTRIAXone 1,000 MG in sodium chloride 0.9% (plus) 50 ML 100 MG IV (11:57)
[2022-07-17] MEDS: sodium chloride 0.9% 1,000 ML 100 ML IV (13:29)
--- NOTE | 2022-07-17 17:21 | PC.NURSE ---
cbi stopped per md order. monitoring output closely. no s/s of complications at this time.
--- NOTE | 2022-07-17 19:31 | PM.PN ---
Subjective Subjective: No complaints. and granddaughter present at bedside. They state he is close to baseline. Vitals/I&O/Wt Last Vital Signs Temp 98.0 F 07/17/22 16:00 Pulse 65 07/17/22 16:00 Resp 18 07/17/22 16:00 BP 121/64 07/17/22 16:00 Pulse Ox 94 07/17/22 16:00 O2 Del Method 07/17/22 16:00 07/17/22 07/17/22 07/17/22 06:59 14:59 22:59 Intake Total 600 / 1890 1050 / 1050 Output Total 1650 / 1650 1000 / 1000 Balance -1050 / 240 1050 / 1050 -1000 / 50 Weight last 48 hrs Weight 78.245 kg Weight 80.91 kg Physical Exam Narrative: No acute distress. Alert and oriented to person place time and situation. Heart regular distant heart sounds no loud murmur Lungs auscultation without wheezes rales or rhonchi Abdomen soft nontender nondistended positive bowel sounds Tidwell in place draining clear urine with CBI. Extremities no clubbing cyanosis or edema Urinary Catheter Management: Coude: Cath Placed During This Visit: yes Reason for Continuing Indwelling Catheter: Chronic Indwelling Urinary Catheter on Admission Urinary Catheter Date of Insertion: 07/16/22 Urinary Catheter Time of Insertion: 13:53 Data : 07/17/22 04:22 07/17/22 04:22 Micro: Microbiology 07/16/22 13:30 Blood Culture - Preliminary Blood NEGATIVE TO DATE 07/16/22 13:17 Blood Culture - Preliminary Blood NEGATIVE TO DATE A&P Assessment and plan (1) Acute metabolic encephalopathy: Likely multifactorial. Status post whole brain irradiation for leptomeningeal metastasis of prostate cancer, acute kidney injury/possible UTI. CT negative for acute findings. Moderate diffuse cerebral atrophy with sequelae of small vessel ischemic disease present. TSH level checked and was normal. Random cortisol was 1.77 which correlates to recent discontinuation of dexamethasone. This has been restarted on admission Per family patient is close to baseline. Status: Acute (2) Acute renal failure: Improving. Continue to hold renal toxic medications. Status: Acute (3) Hyperkalemia: Potassium has now returned to normal at 4.9. We will follow. Status: Acute (4) UTI (urinary tract infection): Urine culture was negative. Likely abnormality caused from hematuria. IV antibiotics changed to Augmentin. Augmentin was started before urine culture was obtained will treat a total of 7 days. Status: Acute (5) Hematuria: Greatly appreciate urology assistance. CBI was being weaned off today and scheduled to stop if no further hematuria. Will maintain Tidwell catheter. Status: Acute (6) Urinary retention: Continue Tidwell Status: Deleted (7) Meningeal carcinomatosis: Dexamethasone reinitiated, taper as tolerated by improvement in mental function Status: Acute (8) Prostate cancer metastatic to multiple sites: Followed by oncology Status: Acute Plan Multiple other medical problems as outlined in past medical history Allow natural . Attestations Medical Necessity Statement*: Will need greater than 2 midnight stay for evaluation and treatment of hyperkalemia, acute kidney injury, encephalopathy, etc. Coding Level of Care Code Acute Clinical Education Consultant for [facility] Fwd Diagnoses Acute metabolic encephalopathy G93.41 Acute renal failure N17.9 Hyperkalemia E87.5 UTI (urinary tract infection) N39.0 Hematuria R31.9 Urinary retention R33.9 Meningeal carcinomatosis C79.49; C80.1 Prostate cancer metastatic to multiple sites C61
[2022-07-18] VITALS: BP 137/55; PULSE 62; RESP 18; TEMP 36.8; O2SAT 94
[2022-07-18 04:00] VITALS: BP 136/67; PULSE 53; RESP 18; TEMP 36.7; O2SAT 96
[2022-07-18 08:00] VITALS: BP 136/69; PULSE 60; RESP 18; TEMP 36.6; O2SAT 94
[2022-07-18] MEDS: dexamethasone 4 mg Tablet PO (08:18)
[2022-07-18] MEDS: amoxicillin-clav 875-125 mg Tablet 1 TAB PO (08:18)
[2022-07-18] MEDS: pantoprazole DR 40 mg Tablet PO (08:18)
[2022-07-18] MEDS: sodium chloride 0.9% 1,000 ML 50 ML IV (10:44)
--- NOTE | 2022-07-18 11:08 | PM.PN ---
Subjective Subjective: Urology follow-up: Urine has remained clear. CBI was discontinued. Catheter functioning well. No complaints regarding his urinary tract. Denies fever or chills. No abdominal pain Mental status seems to be back to his baseline. Creatinine is much improved since admission. Still elevated. From a urologic perspective I think he can be discharged WITH Tidwell catheter in place. I will plan on seeing him back at the end of next week for reevaluation via cystoscopy of the urethral injury. Vitals/I&O/Wt Last Vital Signs Temp 97.8 F 07/18/22 08:00 Pulse 60 07/18/22 08:00 Resp 18 07/18/22 08:00 BP 136/69 07/18/22 08:00 Pulse Ox 60 L 07/18/22 08:00 O2 Del Method 07/17/22 16:00 07/17/22 07/18/22 07/18/22 22:59 06:59 14:59 Intake Total 551.667 / 1601.667 48.333 / 1650.000 877.5 / 877.5 Output Total 1000 / 1000 900 / 900 Balance -448.333 / 601.667 48.333 / 650.000 -22.5 / -22.5 Weight last 48 hrs Weight 172 lb 8 oz Weight 178 lb 6 oz Physical Exam Const: COMMON NORMALS: no acute distress, alert and well nourished GENERAL APPEARANCE: well kempt and well developed Eye: COMMON NORMALS: no scleral icterus Neck/C-Spine: COMMON NORMALS: full ROM Resp: COMMON NORMALS: normal respiratory effort EFFORT & INSPECTION: No labored and No Actively coughing Cardio: COMMON NORMALS: regular rate RATE: regular rate GI: OTHER: Abdomen is soft and nontender. Bladder nondistended : OTHER: Normal genital exam, catheter in appropriate position. No bleeding around the catheter. Extremity: COMMON NORMALS: no clubbing, cyanosis or edema Neuro: SENSORIUM/ORIENTATION: Yes alert OTHER: Confused Psych: COMMON NORMALS: mental status grossly normal APPEARANCE: Yes grossly normal and Yes well kempt ATTITUDE: Yes calm and Yes engaged INSIGHT: Poor insight present (Psych) JUDGEMENT: Limited judgement present (Psych) Skin: COMMON NORMALS: no jaundice Urinary Catheter Management: Coude: Cath Placed During This Visit: yes Reason for Continuing Indwelling Catheter: Chronic Indwelling Urinary Catheter on Admission Urinary Catheter Date of Insertion: 07/16/22 Urinary Catheter Time of Insertion: 13:53 Data : 07/17/22 04:22 07/17/22 04:22 Micro: Microbiology 07/16/22 13:30 Blood Culture - Preliminary Blood NEGATIVE TO DATE 07/16/22 13:17 Blood Culture - Preliminary Blood NEGATIVE TO DATE A&P Assessment and plan (1) Urethral bleeding: Status: Acute (2) Prostate cancer metastatic to multiple sites: Status: Acute (3) Acute urinary retention: Status: Acute Attestations Medical Necessity Statement*: See attending Coding Level of Care Code Acute 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
[2022-07-18 12:00] VITALS: BP 131/71; PULSE 66; RESP 20; TEMP 36.7; O2SAT 93
--- NOTE | 2022-07-18 14:42 | PC.NURSE ---
leg bag to urinary catheter prior to discharge,instructed pt/ regarding changing from leg bag to night bag. Ensured pt knew to wash hands prior to changing bags, he verbalized understanding.
--- NOTE | 2022-07-18 18:23 | P.DS_ITS ---
Discharge Providers Date of Admission: 07/16/22 08:18 Date of Discharge: July 18, 2022 Attending Provider at Admission: Trupti Cai MD Attending Provider at Discharge: Gianfranco Sandra DO Consults: Urology Dr. 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 Significant other with him reports that he has been confused over the last several days.? He has had hallucinations at night.? He was having issues with urinary retention and a Tidwell catheter was placed recently.? It has not been draining well recently, and there has been some blood.? They do not believe he has had any fevers.? He did get started on Augmentin yesterday for possible UTI.? Tidwell catheter was most recently replaced July 07.? 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 This was restarted yesterday through oncology clinic when the Augmentin was initiated.? He has had some nausea, but no vomiting.? No chest discomfort.? No headache.? History is somewhat difficult secondary to confusion but he is fully conversant and seems capable and some of his history. Hospital Course Hospital Course Patient was admitted for acute metabolic encephalopathy acute renal failure hyperkalemia UTI. Work-up for acute metabolic encephalopathy ensued. CT head was negative TSH normal cortisol levels low. Dexamethasone was reinitiated. Patient was given IV fluids. The Tidwell was taken out and reinserted. Urology was consulted and placed on CBI. Culture was obtained. She was continued on antibiotics. Patient markedly improved proved with CBI and this was weaned over the course of hospitalization. His urine turned clear. He was discharged home in stable condition to finish her course of antibiotics. The dexamethasone was restarted and continued as an outpatient. Physical Exam Narrative: No acute distress. Alert and oriented to person place time and situation. Heart regular distant heart sounds no loud murmur Lungs auscultation without wheezes rales or rhonchi Abdomen soft nontender nondistended positive bowel sounds Tidwell in place draining clear urine with CBI. Extremities no clubbing cyanosis or edema Urinary Catheter Management: Coude: Cath Placed During This Visit: yes Reason for Continuing Indwelling Catheter: Chronic Indwelling Urinary Catheter on Admission Urinary Catheter Date of Insertion: 07/16/22 Urinary Catheter Time of Insertion: 13:53 Discharge Data Studies Completed and Pending Completed Studies During Hospitalization Category Date Time Status CT head wo con* [id number] Routine Cat Scan 07/16/22 11:18 Completed Pending at discharge Category Date Time Status Blood Culture Routine Lab 07/16/22 13:30 Results Radiology Impressions Head CT 07/16/22 11:18 IMPRESSION: 1. No acute intracranial abnormality. 2. Moderate diffuse cerebral atrophy and mild sequela of chronic small vessel ischemic disease. Laboratory Results WBC 7.8 10^3/uL (4.0-10.0) 07/17/22 04:22 RBC 3.96 10^6/uL (4.1-5.3) L 07/17/22 04:22 Hgb 12.0 g/dL (11.7-16.6) 07/17/22 04:22 Hct 36.7 % (42.0-52.0) L 07/17/22 04:22 MCV 92.7 fl (80-94) 07/17/22 04:22 MCH 30.3 pg (28.0-34.0) 07/17/22 04:22 MCHC 32.7 g/dL (30.0-36.0) 07/17/22 04:22 RDW 12.9 % (12.1-15.1) 07/17/22 04:22 Plt Count 258 10^3/cmm (130-400) D 07/17/22 04:22 MPV 10.0 fL (7.4-10.4) 07/17/22 04: Neut % (Auto) 92.6 % 07/17/22 04:22 Lymph % (Auto) 3.6 % 07/17/22 04:22 [place] % (Auto) 3.3 % 07/17/22 04:22 Eos % (Auto) 0.0 % 07/17/22 04:22 Baso % (Auto) 0.0 % 07/17/22 04:22 Neut # (Auto) 7.19 10^3/uL (1.8-7.7) 07/17/22 04:22 Lymph # (Auto) 0.3 10^3/uL (0.8-4.8) L 07/17/22 04:22 [place] # (Auto) 0.3 10^3/uL (0.2-0.9) 07/17/22 04:22 Eos # (Auto) 0.0 10^3/uL (0.0-0.8) 07/17/22 04:22 Baso # (Auto) 0.0 10^3/uL (0.0-0.1) 07/17/22 04: Nucleated RBC % (auto) 0 % 07/17/22 04: Nucleated RBCs # 0.0 /100WBC 07/17/22 04:22 Sodium 134 mmol/L (136-145) L 07/17/22 04:22 Potassium 4.9 mmol/L (3.5-5.1) 07/17/22 04:22 Chloride 99 mmol/L (98-107) 07/17/22 04:22 Carbon Dioxide 21 mmol/L (22-29) L 07/17/22 04:22 Anion Gap 18.9 (5-19) 07/17/22 04:22 BUN 28 mg/dL (8-23) H 07/17/22 04:22 Creatinine 2.4 mg/dL (0.7-1.2) H 07/17/22 04:22 GFR Calculation Not Reportable 07/17/22 04:22 Glucose 99 mg/dL (65-115) 07/17/22 04:22 Calculated Osmolality 284 mOsm/kg (285-295) L 07/17/22 04:22 Calcium 8.4 mg/dL (8.5-10.5) L 07/17/22 04:22 Phosphorus 3.9 mg/dL (2.5-4.5) 07/16/22 13:30 Magnesium 3.7 mg/dL (1.7-2.3) H 07/16/22 13:30 Total Bilirubin 0.6 mg/dL (0.15-1.2) 07/17/22 04:22 AST 24 U/L (0-40) 07/17/22 04:22 ALT 13 U/L (0-41) 07/17/22 04:22 Alkaline Phosphatase 182 U/L (40-130) H 07/17/22 04:22 Creatine Kinase 285 U/L (39-308) 07/17/22 04:22 Total Protein 6.0 g/dL (6.6-8.7) L 07/17/22 04:22 Albumin 3.4 g/dL (3.5-5.2) L 07/17/22 04:22 Globulin 2.6 g/dL (1.3-4.6) 07/17/22 04:22 TSH 1.37 uIU/mL (0.27-4.20) 07/16/22 13:30 Random Cortisol 1.77 ug/dL (2.47-19.5) L 07/16/22 13:30 Vitals Last Vital Signs Temp 98.1 F 07/18/22 12:00 Pulse 66 07/18/22 12:00 Resp 20 H 07/18/22 12:00 BP 131/71 07/18/22 12:00 Pulse Ox 93 07/18/22 12:00 O2 Del Method 07/18/22 12:00 Discharge Plan Discharge Patient Disposition: Home Condition: Stable Prescriptions: New dexamethasone 4 mg Tablet 4 mg PO TID Qty: 90 0RF Continued alprazolam 0.25 mg tablet 0.25 mg PO TID PRN (Reason: Anxiety) Hold Instructions: Doctor's Order omeprazole 40 mg capsule,delayed release(DR/EC) 40 mg PO DAILY@0700 methotrexate 2.5 mg/mL solution 2.5 mg PO DAILY Hold Instructions: Doctor's Order metoprolol tartrate 50 mg tablet 50 mg PO DAILY@0700 Hold Instructions: Doctor's Order magnesium 200 mg tablet 200 mg PO DAILY@0700 Hold Instructions: Doctor's Order benazepril 40 mg tablet 40 mg PO DAILY@0700 Hold Instructions: Doctor's Order levofloxacin 500 mg tablet 500 mg PO DAILY Qty: 4 0RF Hold Instructions: Doctor's Order Rx Instructions: Begin day before prostate biopsy. amoxicillin-pot clavulanate 875-125 mg tablet 1 tab PO BID 7 Days Qty: 14 0RF dexamethasone 4 mg tablet 4 mg PO TID Qty: 50 0RF Hold Instructions: Doctor's Order Rx Instructions: take medication with food prochlorperazine maleate [Compazine] 10 mg tablet 10 mg PO Q6H PRN (Reason: nausea and vomiting) Qty: 30 0RF Rx Instructions: Take as needed for MILD nausea apalutamide 60 mg tablet 240 mg PO DAILY Qty: 112 0RF cholecalciferol (vitamin D3) [Vitamin D3] 25 mcg (1,000 unit) Capsule 25 mcg PO DAILY Qty: 0 Hold Instructions: Doctor's Order Lactobacillus acidophilus 500 million cell Tablet 500 mmu cells PO DAILY temazepam 15 mg capsule 15 - 30 mg PO BEDTIME PRN (Reason: Sleep) Hold Instructions: Doctor's Order bicalutamide 50 mg Tablet 50 mg PO DAILY@0800 Qty: 60 2RF tramadol 50 mg tablet 25 mg PO Q6H PRN (Reason: pain) Qty: 30 2RF Hold Instructions: Doctor's Order Discharge Orders: Discharge Order (Routine); Ordered 07/18/22 Ordered By: Manjit Golden Referrals: Manjit Golden MD [Physician] - 07/23/22 (Please call Dr. Golden's office Tuesday to recieve time for appointment on July 23.) Discharge Diet: Usual diet Discharge Activity: Increase activity as tolerated Patient Instructions: Dexamethasone (By mouth), Urinary Retention in Men (GEN) Discharge Attestations Time Spent in Discharge Care*: less than 30 min Quality Metrics Clinical Quality Measures [ No reported AMI, CVA or VTE this stay] Coding Level of Care Code Acute Chg FW DC note Diagnoses Urethral bleeding N36.8 Prostate cancer metastatic to multiple sites C61 Acute urinary retention R33.8
== END 2022-07-18 14:30 | disposition home or self-care (01) | DRG 682 ==
PROVIDERS: Internal Medicine; Admitting Provider Family Medicine; PCP Family Medicine; Visit Provider Internal Medicine
DX: N17.9 Acute kidney failure, unspecified (principal); G93.41 Metabolic encephalopathy; N39.0 Urinary tract infection, site not specified; C79.49 Secondary malignant neoplasm of other parts of nervous system; T83.091A Other mechanical complication of indwelling urethral catheter, initial encounter; Y73.1 Therapeutic (nonsurgical) and rehabilitative gastroenterology and urology devices associated with adverse incidents; N36.8 Other specified disorders of urethra; E87.5 Hyperkalemia; C61 Malignant neoplasm of prostate; N40.1 Benign prostatic hyperplasia with lower urinary tract symptoms; R33.8 Other retention of urine; R31.9 Hematuria, unspecified; K21.9 Gastro-esophageal reflux disease without esophagitis; I10 Essential (primary) hypertension; M06.9 Rheumatoid arthritis, unspecified; F41.9 Anxiety disorder, unspecified; Z87.891 Personal history of nicotine dependence; Z92.3 Personal history of irradiation; Z66 Do not resuscitate
CPT/HCPCS: 36415; 51702; 70450; 80048; 80053; 81001; 82533; 82550; 83735; 84100; 84153; 84443; 85025; 87040; 87086; 93005; 96365; 96367; 96375; 96402; 99205; J0696; J1100; J2405; J3490; J7030; J8540; J9217

== ENCOUNTER 2022-07-16 09:00 | Oncology outpatient (recurring) (ONCR) | payer MEDICARE, SELFPAY ==
--- NOTE | 2022-06-28 10:11 | ONCRAD TMN_ITS ---
Radiation Oncology Treatment Management Note Patient Name: Deric Chavez Date of : 1940 Date of Service: 06/28/2022 Attending Physician: Naren Layne M.D. Deric Chavez is an 82 year old white male recently diagnosed with metastatic prostate cancer. 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 The patient has received 18 Gy of a prescribed 30 Adam with a 3-dimensional conformal radiotherapy plan utilizing opposed lateral portal hendrickson. Upon review of systems, he denied any neurological complaints. On physical examination, the patient weighed 188 lbs. His temperature was 98.4 ???F and the blood pressure was 147/72 mmHg. His pulse was 54 bpm and his respiratory rate was 18. Cranial nerves were intact. Continue cranial radiotherapy as prescribed. Signed by: Dr. Naren Layne 06/28/2022 10:09:34 AM
--- NOTE | 2022-07-02 10:11 | N.ONRD TS_ITS ---
Radiation OncologyTreatment Summary Patient Name: Deric Chavez Date of : 1940 Date of Service: 07/02/2022 Attending Physician: Naren Layne M.D. Deric Chavez is an 82 year old white male recently diagnosed with metastatic prostate cancer. 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 Daily radiotherapy was administered between the dates June 21, 2022 through July 02, 2022. A prescribed dose of 30 Gy was delivered in 10 fractions encompassing 12 elapsed days. The calvarium was treated utilizing a 3-dimensional conformal radiotherapy plan with opposed lateral portal hendrickson. The right lateral field utilized a 270??? gantry angle with a collimator angle of 0???. The field size measured 10 cm x 11 cm within the X-direction and 13.2 cm x 10 cm within the Y-direction. The SSD measured 92.1 cm with the field delivering 170 monitor units. The left lateral port employed a gantry angle of 90??? and a collimator angle of 0???. The field size measured 11 cm x 10 cm within X-direction and 13.2 cm x 10 cm within the Y-direction. The measured SSD was 92.4 cm with the port allocating 169 monitor units. All treatments were performed with the Silk linear accelerator and an isocentric technique. The dose was calculated by Anisotropic Analytic Algorithm. Photon energies of 6 MV were prescribed with the plan normalized to deliver 100% of the prescription dose to 98% of the planning target volume. The plan was designed and approved by the [facility] physician. Signed by: Dr. Naren Layne 07/02/2022 10:09:37 AM
[2022-07-15 09:04] LABS: Basophils % 0.7 %; Eosinophils # 0.2 10^3/uL (0.0-0.8); Eosinophils % 5.3 %; Hematocrit 38.1 % (42.0-52.0); Hemoglobin 12.4 g/dL (11.7-16.6); Lymphocytes # 0.7 10^3/uL (0.8-4.8); Lymphocytes % 16.9 %; Mean Corpuscular HGB Conc 32.5 g/dL (30.0-36.0); Mean Corpuscular Hemoglobin 29.7 pg (28.0-34.0); Mean Corpuscular Volume 91.1 fl (80-94); Monocytes # 0.6 10^3/uL (0.2-0.9); Monocytes % 13.7 %; Neutrophils % 62.7 %; Nucleated Red Blood Cells % 0 %; Platelet Count 238 10^3/cmm (130-400); Red Blood Count 4.18 10^6/uL (4.1-5.3); Red Cell Distribution Width 12.7 % (12.1-15.1); White Blood Count 4.2 10^3/uL (4.0-10.0)
[2022-07-15] MEDS: sodium chloride 0.9% 1,000 ML 999 ML IV (09:33)
[2022-07-15] MEDS: ondansetron 2 mg/ML SDV 2 mL 8 MG IVP (09:35)
[2022-07-15] MEDS: famotidine 20 mg/2 mL INJ IVP (09:35)
[2022-07-15 09:45] LABS: Albumin Level 3.3 g/dL (3.5-5.2); Alkaline Phosphatase 175 U/L (40-130); Blood Urea Nitrogen 21 mg/dL (8-23); Calcium 8.7 mg/dL (8.5-10.5); Carbon Dioxide 24 mmol/L (22-29); Chloride 92 mmol/L (98-107); Globulin 3.1 g/dL (1.3-4.6); Glucose 129 mg/dL (65-115); Osmolality Calculated 273 mOsm/kg (285-295); Sodium 129 mmol/L (136-145); Total Bilirubin 0.7 mg/dL (0.15-1.2); Total Protein 6.4 g/dL (6.6-8.7)
[2022-07-15 09:55] LABS: Alanine Aminotransferase 14 U/L (0-41); Anion Gap 18.9 (5-19); Aspartate Amino Transferase 24 U/L (0-40)
[2022-07-15 09:56] LABS: Potassium 5.9 mmol/L (3.5-5.1)
[2022-07-15] MEDS: leuprolide 22.5 mg Kit IM (11:04)
[2022-07-15 11:31] LABS: Urine Appearance Hazy (CLEAR); Urine Color Yellow (Yellow)
[2022-07-15 11:32] LABS: Add Urine Microscopic? YES; Bilirubin Urine 1+ (Negative); Blood Urine 3+ (Negative); Glucose Urine UA Norm (Normal); Ketones Urine 1+ (Negative); Leukocyte Esterase Urine 2+ (Negative); Nitrate Urine Positive (Negative); Protein Urine 2+ (Negative); Specific Gravity, Urine 1.025 (1.005-1.030); Urobilinogen Urine 1 mg/dL (Negative); pH Urine 5 (5-7)
[2022-07-15 11:35] LABS: Add Urine Culture? Yes; Bacteria Urine 2+ /hpf; RBC Urine TOO NUMEROUS TO CNT /hpf (0-2); Squamous Epithelial Cell Urine 0-4 /hpf (0-5); WBC Urine 25-40 /hpf (0-5)
[2022-07-15 12:00] VITALS: BP 84/41; PULSE 59; RESP 18; TEMP 36.6; O2SAT 95
[2022-07-15 13:32] VITALS: BP 77/42; PULSE 51; RESP 18; TEMP 36.6; O2SAT 97
--- NOTE | 2022-07-15 13:35 | PC.NURSE ---
patients medications reviewed with the caregiver by Dr Biggs with the medications discontinued with his friend aware of this and she will take him home with her to help monitor him.bryant
--- NOTE | 2022-07-15 13:45 | PC.NURSE ---
phone call to the home with a message to [employer] medications for a steriod and antibiotic per Dr Biggs/mm
[2022-07-16 08:33] VITALS: BP 112/59; PULSE 101; RESP 18; TEMP 36.8; O2SAT 95
--- NOTE | 2022-07-16 09:46 | PC.NURSE ---
Patient direct admit to room 257. Hesham Wynne RN gave report to Arely SPARKS.
[2022-07-16 09:48] VITALS: BP 112/59; PULSE 101; RESP 18; TEMP 36.8; O2SAT 95
== END 2022-07-28 23:59 | disposition home or self-care (01) ==
PROVIDERS: Internal Medicine Medical Oncology; Nurse Practitioner; PCP Family Medicine; Visit Provider Radiology Radiation Oncology
DX: C61 Malignant neoplasm of prostate; Z53.9 Procedure and treatment not carried out, unspecified reason
CPT/HCPCS: 51702; 51798; 77336; 77412; 77417; 80053; 81001; 84153; 85025; 87086; 96365; 96367; 96375; 96402; 99205; 99213; J1100; J2405; J3490; J7030; J9217

== ENCOUNTER → 2022-07-23 09:40 | Outpatient (BNVA) | payer MEDICARE, SELFPAY | PROVIDERS: PCP Family Medicine; Visit Provider Urology | DX: S37.30XA Unspecified injury of urethra, initial encounter (principal); N39.0 Urinary tract infection, site not specified; C61 Malignant neoplasm of prostate; X58.XXXA Exposure to other specified factors, initial encounter; R33.8 Other retention of urine | CPT/HCPCS: 52000; 99213 ==

== ENCOUNTER → 2022-08-06 09:58 | Outpatient (BNVA) | payer MEDICARE, SELFPAY | PROVIDERS: PCP Family Medicine; Visit Provider Urology | DX: S37.30XA Unspecified injury of urethra, initial encounter (principal); R33.8 Other retention of urine; C61 Malignant neoplasm of prostate | CPT/HCPCS: 52000 ==

== ENCOUNTER 2022-08-19 10:33 | Observation (INO) | payer MEDICARE, SELFPAY ==
[2022-08-19] VITALS (13 sets, daily range): BP systolic 68–129; BP diastolic 41–61; PULSE 57–68; RESP 13–29; TEMP 36.1–36.6; O2SAT 90–99; BMI 25.0
--- NOTE | 2022-08-19 11:02 | ECG_ITS ---
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 Measurements Intervals [place] Rate: 61 P: 16 DC: 182 QRS: -17 QRSD: 83 T: -9 QT: 378 QTc: 381 Interpretive Statements SINUS RHYTHM LOW QRS VOLTAGE [QRS DEFLECTION < 0.5/1.0 mV IN LIMB/CHEST LEADS] INFERIOR MYOCARDIAL INFARCTION , OF INDETERMINATE AGE [40+ ms Q WAVE AND/OR ST/T ABNORMALITY IN II/aVF] ANTEROSEPTAL MYOCARDIAL INFARCTION , OF INDETERMINATE AGE [40+ ms Q WAVE IN V1-V4] Compared to ECG 07/16/2022 15:11:31 Low QRS voltage now present Sinus arrhythmia no longer present Myocardial infarct finding still present Electronically Signed On 08-19-2022 20:43:23 CDT by Brigette Tejada M.D. [id number]
[2022-08-19 11:46] LABS: Basophils % 0.4 %; Eosinophils # 0.2 10^3/uL (0.0-0.8); Eosinophils % 2.6 %; Hematocrit 38.1 % (42.0-52.0); Hemoglobin 12.2 g/dL (11.7-16.6); Lymphocytes # 0.3 10^3/uL (0.8-4.8); Mean Corpuscular Hemoglobin 30.5 pg (28.0-34.0); Mean Corpuscular Volume 95.3 fl (80-94); Mean Platelet Volume 9.3 fL (7.4-10.4); Monocytes # 0.4 10^3/uL (0.2-0.9); Monocytes % 7.2 %; Neutrophils # 4.68 10^3/uL (1.8-7.7); Nucleated Red Blood Cells % 0 %; Platelet Count 211 10^3/cmm (130-400); Red Cell Distribution Width 14.1 % (12.1-15.1); White Blood Count 5.7 10^3/uL (4.0-10.0)
[2022-08-19 12:12] LABS: Alanine Aminotransferase 10 U/L (0-41); Albumin Level 3.1 g/dL (3.5-5.2); Alkaline Phosphatase 142 U/L (40-130); Aspartate Amino Transferase 13 U/L (0-40); Blood Urea Nitrogen 47 mg/dL (8-23); Calcium 9.2 mg/dL (8.5-10.5); Carbon Dioxide 22 mmol/L (22-29); Chloride 100 mmol/L (98-107); Glucose 105 mg/dL (65-115); Lipase 21 U/L (13-60); Osmolality Calculated 289 mOsm/kg (285-295); Sodium 133 mmol/L (136-145); Total Bilirubin 0.7 mg/dL (0.15-1.2); Total Protein 6.1 g/dL (6.6-8.7)
[2022-08-19] MEDS: ondansetron 2 mg/ML SDV 2 mL 4 MG IVP (13:25)
[2022-08-19] MEDS: lactated ringers 1,000 ML 999 ML IV ×3 (13:26→15:24)
--- NOTE | 2022-08-19 13:39 | XR_ITS ---
WS: [id number] Cervical spine, 4 views, 08/19/2022 Clinical Data: pain Comparison: None. Findings: No compression fractures are seen. There is degenerative disc narrowing at C4-C5, C5-C6 and C6-C7. At these levels there is anterior osteophyte formation. There is no prevertebral soft tissue swelling. The odontoid is unremarkable but seen only on the lateral view. The soft tissues of the nec k and the lung apices are normal. Monitor leads are on the upper chest wall XR/XR cervical spine 3V* [id number] Impression: Degenerative disc narrowing from C4-C5 to C6-C7 with accompanying anterior oste ophytes.
--- NOTE | 2022-08-19 13:39 | W.ED.NAVMDI ---
HPI - Nausea/Vomiting/Diarrhea General: Chief complaint: Nausea/Vomiting/Diarrhea Stated complaint: neck pain, n/d Time Seen by Provider: 08/19/22 10:48 History of Present Illness: 82-year-old male with a history of nausea and diarrhea for the last week. No fever sweats or chills has not been eating or drinking much. Denies any medic easy melena hematemesis coffee-ground emesis he usually avoids spontaneously and then several times a day will use self cath to remove any residual. He denies chest pain or shortness of breath. MD elicited complaint: nausea and vomiting Onset (ago): week(s) (1) Associated nausea: Yes Severity: mild Exacerbating factors: none Relieving factors: none Associated symtoms: Reports nausea; Denies altered mental status, anxiety, bloating, change in vision, chest pain, cough, diaphoresis, decreased urine output, dizziness, dysuria, epistaxis, fatigue, fecal incontinence, fevers/chills, headache(s), anorexia, malaise, myalgias, numbness, palpitations, rash, short of breath, syncope, tenesmus, tinnitus or weakness Review of Systems Const: Denies: fever(s), chills, fatigue, malaise or diaphoresis Eyes: Denies: change in vision ENMT: Denies: throat pain, tinnitus or epistaxis Card: Denies: chest pain, palpitations or syncope Resp: Denies: dyspnea, productive cough or non-productive cough GI: Reports: nausea; Denies: abdominal pain, bloating or fecal incontinence : Denies: flank pain, difficulty urinating, dysuria, urinary frequency or urinary urgency Musc: Denies: neck pain or back pain Skin/Breast: Denies: rash or pruritus Neuro: Denies: headache(s) or dizziness Psych: Denies: anxiety PFSH ED PFSH: Medical History Acute metabolic encephalopathy Acute renal failure Anxiety Enlarged prostate with lower urinary tract symptoms (LUTS) GERD (gastroesophageal reflux disease) Hematuria Hyperkalemia Hypertension Meningeal carcinomatosis Prostate cancer Rheumatoid arthritis Urethral bleeding Secondary to forcibly withdrawn Tidwell catheter with balloon intact, patient Surgical History Heel fracture bilateral from fall -- bilateral repair with hardware History of hernia repair (02/09/21) Repair of incarcerated ventral hernia History of oral surgery teeth extraction History of tonsillectomy Family History Other Family history unknown Social History Smoking and tobacco status: former smoker Alcohol intake: never Marital status: / Marital status details: The patient's spouse around 2014 Current occupational status: retired 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 History of recent travel: No Physical Exam Const: EXAM LIMITATIONS: no altered mental status GENERAL APPEARANCE: cooperative and comfortable ORIENTATION/CONSCIOUSNESS: Yes awake, Yes oriented to person, Yes oriented to place and Yes oriented to time HENMT: COMMON NORMALS: hearing grossly normal bilaterally Resp: COMMON NORMALS: normal respiratory effort, No retractions, No use of accessory muscles and clear to auscultation bilaterally AUSCULTATION: clear to auscultation bilaterally Cardio: COMMON NORMALS: regular rate, regular rhythm and No murmurs present (Cardio) RATE: regular rate RHYTHM: regular rhythm GI: COMMON NORMALS: Soft to palpation and No hepatosplenomegaly present AUSCULTATION: Yes normoactive bowel sounds PALPATION: Yes Soft to palpation, No Tenderness to palpation present (GI), No Guarding due to palpation present (GI) and Yes No hepatosplenomegaly present Extremity: COMMON NORMALS: normal to inspection, capillary refill normal, no clubbing, cyanosis or edema, no calf tenderness and no pedal edema Neuro: SENSORIUM/ORIENTATION: Yes oriented to person, Yes oriented to place and Yes oriented to time Skin: COMMON NORMALS: no rashes or lesions noted GENERAL SKIN EXAM: no rashes or lesions noted Course Vital Signs: Vital signs: Vital Signs Temperature 97.6 F 08/19/22 10:37 Pulse Rate 57 L 08/19/22 13:55 Respiratory Rate 16 08/19/22 13:55 Blood Pressure 79/61 08/19/22 13:55 Pulse Oximetry 96 08/19/22 13:55 Oxygen Delivery Me thod 08/19/22 13:55 MDM - Nausea/Vomiting/Diarrhea Medical Decision Making Patient persistently hypotensive. Best pressure able to get was 90 systolic that was patient in Trendelenburg. He is currently on metoprolol and benazepril he probably need to cut back or stop these. BUN slightly elevated. We will give him stress dose corticosteroid admit to ICU to monitor for hypotension and adjust medications and give fluids. Medical Records I reviewed the patient's medical records. Lab Data I reviewed the patient's lab results. : 08/19/22 11:39 08/19/22 11:39 Radiology Impressions Cervical Spine X-Ray 08/19/22 13:39 Impression: Degenerative disc narrowing from C4-C5 to C6-C7 with accompanying anterior osteophytes. Laboratory Results WBC 5.7 10^3/uL (4.0-10.0) 08/19/22 11:39 RBC 4.00 10^6/uL (4.1-5.3) L 08/19/22 11:39 Hgb 12.2 g/dL (11.7-16.6) 08/19/22 11:39 Hct 38.1 % (42.0-52.0) L 08/19/22 11:39 MCV 95.3 fl (80-94) H 08/19/22 11:39 MCH 30.5 pg (28.0-34.0) 08/19/22 11:39 MCHC 32.0 g/dL (30.0-36.0) 08/19/22 11:39 RDW 14.1 % (12.1-15.1) 08/19/22 11:39 Plt Count 211 10^3/cmm (130-400) 08/19/22 11:39 MPV 9.3 fL (7.4-10.4) 08/19/22 11:39 Neut % (Auto) 82.0 % 08/19/22 11:39 Lymph % (Auto) 6.0 % 08/19/22 11:39 [place] % (Auto) 7.2 % 08/19/22 11:39 Eos % (Auto) 2.6 % 08/19/22 11:39 Baso % (Auto) 0.4 % 08/19/22 11:39 Neut # (Auto) 4.68 10^3/uL (1.8-7.7) 08/19/22 11:39 Lymph # (Auto) 0.3 10^3/uL (0.8-4.8) L 08/19/22 11:39 [place] # (Auto) 0.4 10^3/uL (0.2-0.9) 08/19/22 11:39 Eos # (Auto) 0.2 10^3/uL (0.0-0.8) 08/19/22 11:39 Baso # (Auto) 0.0 10^3/uL (0.0-0.1) 08/19/22 11:39 Nucleated RBC % (auto) 0 % 08/19/22 11:39 Nucleated RBCs # 0.0 /100WBC 08/19/22 11:39 Sodium 133 mmol/L (136-145) L 08/19/22 11:39 Potassium 5.0 mmol/L (3.5-5.1) 08/19/22 11:39 Chloride 100 mmol/L (98-107) 08/19/22 11:39 Carbon Dioxide 22 mmol/L (22-29) 08/19/22 11:39 Anion Gap 16.0 (5-19) 08/19/22 11:39 BUN 47 mg/dL (8-23) H 08/19/22 11:39 Creatinine 2.0 mg/dL (0.7-1.2) H 08/19/22 11:39 GFR Calculation Not Reportable 08/19/22 11:39 Glucose 105 mg/dL (65-115) 08/19/22 11:39 Calculated Osmolality 289 mOsm/kg (285-295) 08/19/22 11:39 Calcium 9.2 mg/dL (8.5-10.5) 08/19/22 11:39 Total Bilirubin 0.7 mg/dL (0.15-1.2) 08/19/22 11:39 AST 13 U/L (0-40) 08/19/22 11:39 ALT 10 U/L (0-41) 08/19/22 11:39 Alkaline Phosphatase 142 U/L (40-130) H 08/19/22 11:39 Total Protein 6.1 g/dL (6.6-8.7) L 08/19/22 11:39 Albumin 3.1 g/dL (3.5-5.2) L 08/19/22 11:39 Globulin 3.0 g/dL (1.3-4.6) 08/19/22 11:39 Lipase 21 U/L (13-60) 08/19/22 11:39 Discharge Plan Discharge Condition: Stable Prescriptions: No Action alprazolam 0.25 mg tablet 0.25 mg PO TID PRN (Reason: Anxiety) Hold Instructions: Doctor's Order omeprazole 40 mg capsule,delayed release(DR/EC) 40 mg PO DAILY@0700 methotrexate 2.5 mg/mL solution 2.5 mg PO DAILY Hold Instructions: Doctor's Order metoprolol tartrate 50 mg tablet 50 mg PO DAILY@0700 Hold Instructions: Doctor's Order magnesium 200 mg tablet 200 mg PO DAILY@0700 Hold Instructions: Doctor's Order benazepril 40 mg tablet 40 mg PO DAILY@0700 Hold Instructions: Doctor's Order Aspir-81 81 mg Tablet,Delayed Release (Dr/Ec) 81 mg PO DAILY tamsulosin 0.4 mg Capsule 0.4 mg PO DAILY finasteride 5 mg Tablet 5 mg PO DAILY Zyrtec 10 mg Capsule 10 mg PO DAILY Erleada 60 mg Tablet 240 mg PO DAILY Lactobacillus acidophilus 500 million cell Tablet 500 mmu cells PO DAILY temazepam 15 mg capsule 15 - 30 mg PO BEDTIME PRN (Reason: Sleep) Hold Instructions: Doctor's Order bicalutamide 50 mg Tablet 50 mg PO DAILY@0800 Qty: 60 2RF tramadol 50 mg tablet 25 mg PO Q6H PRN (Reason: pain) Qty: 30 2RF Hold Instructions: Doctor's Order dexamethasone 4 mg Tablet 4 mg PO TID Qty: 90 0RF Referrals: Zach Byrd MD [Primary Care Provider] - Coding Level of Care Code ED Dictating Transcribing Machine Servicer for Chg Fwd Exam Detailed
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
[2022-08-19] MEDS: hydrocortisone 100 mg/2 mL SDV 50 MG IVP (15:25)
[2022-08-19 15:42] LABS: Lactic Sepsis W/Reflex 1.2 mmol/L (0.5-2.2)
[2022-08-19 15:51] LABS: Thyroid Stimulating Hormone 1.51 uIU/mL (0.27-4.20)
[2022-08-19 15:55] LABS: Folate Level 15.6 ng/mL (4.5-32.2)
[2022-08-19 15:58] LABS: Vitamin B12 1257 pg/mL (232-1245)
[2022-08-19 16:18] LABS: Iron 54 ug/dL (59-158); Total Iron Binding Capacity 200 mcg/dl; Unsaturated Iron Binding 146 ug/dL (112-347)
[2022-08-19] MEDS: hydrocortisone 100 mg/2 mL SDV IVP (16:24)
[2022-08-19 16:42] LABS: Cortisol Random 15.73 ug/dL (2.47-19.5)
[2022-08-19 16:59] LABS: Blood Urine 2+ (Negative); Glucose Urine UA Norm (Normal); Ketones Urine 1+ (Negative); Nitrate Urine Positive (Negative); Protein Urine Neg (Negative); Specific Gravity, Urine 1.015 (1.005-1.030); Urine Appearance Clear (CLEAR); Urine Color Yellow (Yellow); pH Urine 5 (5-7)
[2022-08-19 17:00] LABS: Add Urine Culture? Yes; Add Urine Microscopic? YES; Bacteria Urine 3+ /hpf; Bilirubin Urine Neg (Negative); Leukocyte Esterase Urine Trace (Negative); Mucus Urine 2+ /hpf; RBC Urine 0-4 /hpf (0-2); Squamous Epithelial Cell Urine 0-4 /hpf (0-5); Urobilinogen Urine Norm (Negative); WBC Urine >100 /hpf (0-5)
[2022-08-19] MEDS: ferrous gluconate 324 mg Tablet PO (17:49)
[2022-08-19] MEDS: pantoprazole 40 mg SDV IVP (17:49)
[2022-08-19] MEDS: sodium chloride 0.9% 1,000 ML 50 ML IV (17:49)
[2022-08-19] MEDS: cefTRIAXone 1,000 MG in sodium chloride 0.9% (plus) 50 ML 100 MG IV (17:57)
[2022-08-19] MEDS: temazepam 15 mg Capsule PO (21:02)
[2022-08-19] MEDS: dexamethasone 4 mg/mL INJ IVP (21:02)
--- NOTE | 2022-08-19 23:35 | PC.NURSE ---
[id number] patient becoming increasingly confused (no longer oriented to place, repetitive speech noted about a [place] ); Tete Mcgarry (Person to Notify/friend) contacted to see if increased nighttime confusion is new onset, according to Tete, patient frequently becomes more confused at night; will continue to monitor closely
[2022-08-20] VITALS (26 sets, daily range): BP systolic 96–144; BP diastolic 41–80; PULSE 57–82; RESP 12–26; TEMP 36.4–36.7; O2SAT 90–100
[2022-08-20 02:56] LABS: Basophils % 0.2 %; Hemoglobin 11.5 g/dL (11.7-16.6); Lymphocytes # 0.3 10^3/uL (0.8-4.8); Lymphocytes % 7.6 %; Mean Corpuscular HGB Conc 32.9 g/dL (30.0-36.0); Mean Corpuscular Hemoglobin 30.7 pg (28.0-34.0); Mean Corpuscular Volume 93.3 fl (80-94); Mean Platelet Volume 9.7 fL (7.4-10.4); Monocytes # 0.1 10^3/uL (0.2-0.9); Monocytes % 1.7 %; Neutrophils # 3.72 10^3/uL (1.8-7.7); Neutrophils % 88.8 %; Nucleated Red Blood Cells % 0 %; Platelet Count 219 10^3/cmm (130-400); Red Blood Count 3.75 10^6/uL (4.1-5.3); Red Cell Distribution Width 13.7 % (12.1-15.1); White Blood Count 4.2 10^3/uL (4.0-10.0)
[2022-08-20 03:18] LABS: Estmated Average Glucose 128; Hemoglobin A1C 6.1 % (4.0-6.0)
[2022-08-20] MEDS: dexamethasone 4 mg/mL INJ IVP ×2 (05:17→16:52)
[2022-08-20 06:51] LABS: Alanine Aminotransferase 8 U/L (0-41); Albumin Level 3.1 g/dL (3.5-5.2); Alkaline Phosphatase 139 U/L (40-130); Anion Gap 18.8 (5-19); Aspartate Amino Transferase 13 U/L (0-40); Blood Urea Nitrogen 36 mg/dL (8-23); Calcium 8.9 mg/dL (8.5-10.5); Carbon Dioxide 20 mmol/L (22-29); Chloride 102 mmol/L (98-107); Chol HDL Ratio 4.72 mg/dL (1.0-5.00); Cholesterol 170 mg/dL (0-200); Globulin 2.6 g/dL (1.3-4.6); Glucose 107 mg/dL (65-115); HDL Cholesterol 36 mg/dL (60-100); LDL Cholesterol Calculated 113 mg/dL (50-129); Magnesium 2.2 mg/dL (1.7-2.3); Osmolality Calculated 291 mOsm/kg (285-295); Phosphorus 3.4 mg/dL (2.5-4.5); Potassium 4.8 mmol/L (3.5-5.1); Sodium 136 mmol/L (136-145); Total Bilirubin 0.4 mg/dL (0.15-1.2); Total Protein 5.7 g/dL (6.6-8.7); Triglycerides 103 mg/dL (0-150); VLDL Cholestrol Calculation 21 mg/dL (0-30)
--- NOTE | 2022-08-20 06:58 | PC.NURSE ---
Bedside report completed with BRIDGER Girard
[2022-08-20] MEDS: metoprolol tartrate 25 mg Tablet PO (10:03)
[2022-08-20] MEDS: ferrous gluconate 324 mg Tablet PO ×2 (10:04→17:32)
[2022-08-20] MEDS: tamsulosin 0.4 mg Capsule PO (10:05)
[2022-08-20] MEDS: finasteride 5 mg Tablet PO (10:05)
[2022-08-20] MEDS: citalopram 20 mg Tablet PO (10:06)
--- NOTE | 2022-08-20 14:44 | PM.PN ---
Subjective Subjective: No complaints overnight. Patient's blood pressures have remained stable. On examination awake and alert, cheerful. States he is feeling a lot better. As per the nurse patient was tearful early in the morning because of his medical condition. Vitals/I&O/Wt Last Vital Signs Temp 97.6 F 08/20/22 07:30 Pulse 72 08/20/22 13:00 Resp 18 08/20/22 13:00 BP 110/47 08/20/22 13:00 Pulse Ox 94 08/20/22 13:00 O2 Del Method 08/20/22 13:00 08/19/22 08/20/22 08/20/22 22:59 06:59 14:59 Intake Total 2410 / 3410 689 / 4099 900 / 900 Output Total 900 / 900 1000 / 1000 Balance 2410 / 3410 -211 / 3199 -100 / -100 Weight last 48 hrs Weight 69.49 kg Weight 73.595 kg Weight 72.575 kg Physical Exam Narrative: General: No acute distress, AO x3, pleasant, chronically sick appearing, dehydrated HEENT: PERRLA, pupils bilaterally equal and reactive Chest: Normal vesicular breath sounds, no added sounds, equal good air entry bilaterally CVS: S1-S2 regular, no murmurs, no tachycardia, no gallops, no rubs Abdomen: Soft, nontender, no organomegaly, bowel sounds present Neuro: No focal deficits, no facial deformity, AO x3, power 5/5 in all limbs Urinary Catheter Management: Tidwell: Cath Placed During This Visit: yes, but has since been removed by the nurse Reason for Continuing Indwelling Catheter: Accurate Measurement of Urinary Output in Critically Ill Patients Urinary Catheter Date of Insertion: 08/19/22 Urinary Catheter Time of Insertion: 15:44 Date Urinary Catheter Removed: 08/20/22 Time Urinary Catheter Discontinued: 10:10 Data : 08/20/22 02:15 08/20/22 02:15 Micro: Microbiology 08/19/22 18:00 MRSA Culture - Final Nose 08/19/22 15:40 Urine Culture - Preliminary Urine,Clean Catch Gram Negative Rods 08/19/22 15:40 Bacterial Antigens - Final Urine Kidney 08/19/22 15:40 Legionella Urinary Antigen - Final Urine Catheterized 08/19/22 15:31 Blood Culture - Preliminary Blood SPECIMEN COLLECTED 09/22/22 15:21 Blood Culture - Preliminary Blood SPECIMEN COLLECTED A&P Assessment and plan (1) Hypotension: Status: Acute (2) Adrenal insufficiency: Status: Acute (3) Diarrhea: Status: Acute (4) Prostate cancer metastatic to multiple sites: Status: Acute (5) Meningeal carcinomatosis: Status: Acute (6) CKD (chronic kidney disease): Status: Acute Plan 82-year-old gentleman past medical history of prostate cancer with leptomeningeal metastasis with history of adrenal insufficiency whose steroid was tapered off a week ago within a span of 2 weeks presents to the hospital with generalized weakness, diarrhea and found to be hypotensive. Hypotension: Most likely secondary adrenal insufficiency as steroids were stopped. Wean dexamethasone 4 mg every 12 hourly. Monitor blood pressures. Urine culture growing gram-negative rods. MRSA positive. No other source of infection. For now continue with IV ceftriaxone. Will change as per culture results. IV fluids at 50 cc/h. Goal blood pressure with mean artery pressure over 65. Hold off on antihypertensives including benazepril. Start on decreased dose of metoprolol of 25 mg daily to avoid refractory tachycardia. Continue other chronic medications. Remove Tidwell. CKD: Creatinine at baseline. Baseline creatinine seems to be around 2. Continue to monitor daily. Medical reconciliation done for nephrotoxic drugs. Analgesia: Tylenol Glycemic control: Not needed, check A1c Nutrition: Regular diet CODE STATUS: Discussed in detail with patient and patient's at bedside. Full code. PUD prophylaxis: Protonix DVT prophylaxis: Heparin 5000 every 12 hourly Discharge planning: Home with caregiver once medically stable Transfer to [facility] floor. This documentation was created by [employer] supervisor self service store software. Every effort was made to ensure accuracy of supervisor self service store. Any obvious errors or omissions should be clarified with the author of the document. Attestations Medical Necessity Statement*: Requires further hospitalization for management of hypotension secondary to adrenal insufficiency in a patient with history of prostate cancer with metastasis Time Spent in Patient Care: Greater than 35 minutes Coding Level of Care Code Acute English As A Second Language Teacher for [facility] Fwd Diagnoses Hypotension I95.9 Adrenal insufficiency E27.40 Diarrhea R19.7 Prostate cancer metastatic to multiple sites C61 Meningeal carcinomatosis C79.49; C80.1 CKD (chronic kidney disease) N18.9
[2022-08-20] MEDS: sodium chloride 0.9% 1,000 ML 50 ML IV (16:51)
[2022-08-20] MEDS: cefTRIAXone 1,000 MG in sodium chloride 0.9% (plus) 50 ML 100 MG IV (17:32)
[2022-08-20] MEDS: pantoprazole 40 mg SDV IVP (17:35)
--- NOTE | 2022-08-20 21:15 | PC.NURSE ---
Patient has been advised not to get out of bed wihout assistance. Patient verbalized understanding. However, patient has got out of bed x 4 since 1899. The first time patient was looking for his clothes to get dressed. Patient did not know where he was and thought he was in a hospital in [place]. The other 3 times patient was standing by the bed and stated he needed to use the urinal. Each time patient was advised to call for the nurse. Helped back to bed and given his call light. Bed alarm is reset.
[2022-08-20] MEDS: temazepam 15 mg Capsule PO (22:41)
[2022-08-21 04:00] VITALS: PULSE 69; RESP 21; TEMP 36.8; O2SAT 95
[2022-08-21 04:02] LABS: Basophils % 0.1 %; Hematocrit 36.3 % (42.0-52.0); Hemoglobin 11.9 g/dL (11.7-16.6); Lymphocytes # 0.8 10^3/uL (0.8-4.8); Lymphocytes % 4.9 %; Mean Corpuscular HGB Conc 32.8 g/dL (30.0-36.0); Mean Corpuscular Volume 94.5 fl (80-94); Monocytes # 0.5 10^3/uL (0.2-0.9); Monocytes % 3.2 %; Neutrophils # 14.32 10^3/uL (1.8-7.7); Neutrophils % 90.6 %; Nucleated Red Blood Cells % 0 %; Platelet Count 248 10^3/cmm (130-400); Red Blood Count 3.84 10^6/uL (4.1-5.3); Red Cell Distribution Width 13.9 % (12.1-15.1); White Blood Count 15.8 10^3/uL (4.0-10.0)
[2022-08-21 06:00] LABS: Alanine Aminotransferase 9 U/L (0-41); Albumin Level 3.1 g/dL (3.5-5.2); Alkaline Phosphatase 147 U/L (40-130); Anion Gap 14.8 (5-19); Aspartate Amino Transferase 13 U/L (0-40); Blood Urea Nitrogen 26 mg/dL (8-23); Calcium 9.3 mg/dL (8.5-10.5); Carbon Dioxide 21 mmol/L (22-29); Chloride 100 mmol/L (98-107); Glucose 133 mg/dL (65-115); Osmolality Calculated 279 mOsm/kg (285-295); Potassium 4.8 mmol/L (3.5-5.1); Sodium 131 mmol/L (136-145); Total Bilirubin 0.5 mg/dL (0.15-1.2); Total Protein 6.1 g/dL (6.6-8.7)
[2022-08-21] MEDS: metoprolol tartrate 25 mg Tablet PO (07:12)
[2022-08-21 08:00] VITALS: BP 112/54; PULSE 86; RESP 16; TEMP 36.4; O2SAT 97
[2022-08-21] MEDS: dexamethasone 4 mg/mL INJ IVP (08:27)
[2022-08-21] MEDS: citalopram 20 mg Tablet PO (08:28)
[2022-08-21] MEDS: tamsulosin 0.4 mg Capsule PO (08:28)
[2022-08-21] MEDS: finasteride 5 mg Tablet PO (08:28)
[2022-08-21] MEDS: ALPRAZolam 0.5 mg Tablet 0.25 MG PO (08:32)
[2022-08-21] MEDS: ferrous gluconate 324 mg Tablet PO (08:35)
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
--- NOTE | 2022-08-21 11:20 | PM.DCS ---
Discharge Providers Date of Admission: 08/19/22 16:51 Date of Discharge: August 21, 2022 Attending Provider at Admission: Patricio Hernandez MD Attending Provider at Discharge: Patricio Hernandez MD Primary Care Provider: Zach Byrd MD Diagnoses at Discharge Discharge Diagnosis (1) Hypotension: Status: Acute (2) Adrenal insufficiency: Status: Acute (3) Diarrhea: Status: Acute (4) Prostate cancer metastatic to multiple sites: Status: Acute (5) Meningeal carcinomatosis: Status: Acute (6) CKD (chronic kidney disease): Status: Acute Reason for Visit Reason for Visit: neck pain, n/d Hospital Course Hospital Course Deric Chavez is a 82 year old male with metastatic prostate cancer with leptomeningeal spread and recent brain irradiation, adrenal insufficiency with cortisol level of less than 2 on previous admission who was discharged on dexamethasone 4 mg 3 times a day a month ago presents back to the ER with today because of multiple episodes of diarrhea which has been going on for last 1 week associated with weakness, tiredness and neck pain.? Patient denies of having any nausea, vomiting, abdominal pain, dysuria, dizziness, chest pain, difficulty in breathing.? Currently saturating well on room air.? As per the patient last dose of dexamethasone was on 08/13.? As per the patient and patient's at bedside he was asked to take 4 mg 3 times a day on discharge which he continued to take till the month end of June.? From July 29 his primary option to take 4 mg 1 time a day for 10 days and then stop for a week and then restart for 3 days with last dose on last Tuesday.? Since stopping the medication he has been tired, diarrhea has been going on prior to stopping the medication.? 1 episode of fever 3 days ago with T-max of 100.4 at home.? His last dose of radiation therapy was a month ago and is due to start on oral chemotherapy for prostate cancer in a week. On presentation to the ER his blood pressure was found to be 68 systolic for which he required 1 unit of IV bolus after which his blood pressures improved to 82 systolic.? Patient has also received 50 mg of IV hydrocortisone as per my request. Examination patient's heart rate is 60 bpm, patient is awake and alert, able to have complete conversation and given his history with at bedside with systolic blood pressure of 84 and a mean arterial pressure of 60 mmHg. Patient was admitted to ICU for further evaluation and management of hypotension. At first he was started on IV fluid boluses along with stress dose steroids. It is believed that his hypotension is most likely secondary to adrenal insufficiency because of chronic steroids which were recently discontinued. During hospitalization his blood culture remain negative. Urine culture positive for 20-40,000 gram-negative rods for which he was continued on IV ceftriaxone. Patient himself denied of having any dysuria. 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 Safe discharge planning was discussed in detail with patient and patient's caregiver at bedside. They were both agreeable to the plan and would want take him home as soon as possible. He is been discharged hemodynamic stable condition at his baseline mentation. Please take dexamethasone 4 mg twice daily for next 2 weeks followed by 4 mg once daily for 2 weeks followed by 2 mg daily. He is to check his blood pressure daily and maintain a blood pressure diary. Goal blood pressure is less than 140/90 mmHg and more than 100 systolics. If blood pressures drop below 100 systolic after cutting down to 2 mg daily of dexamethasone he is to bring the dose back up to 4 mg daily. He is to take Levaquin for 3 more days. For now he is to hold off onto his antihypertensives. Home health has been arranged for him for safe discharge planning. Physical Exam Narrative: General: No acute distress, AO x3, pleasant, chronically sick appearing, dehydrated HEENT: PERRLA, pupils bilaterally equal and reactive Chest: Normal vesicular breath sounds, no added sounds, equal good air entry bilaterally CVS: S1-S2 regular, no murmurs, no tachycardia, no gallops, no rubs Abdomen: Soft, nontender, no organomegaly, bowel sounds present Neuro: No focal deficits, no facial deformity, AO x3, power 5/5 in all limbs Urinary Catheter Management: Tidwell: Cath Placed During This Visit: yes, but has since been removed by the nurse Reason for Continuing Indwelling Catheter: Accurate Measurement of Urinary Output in Critically Ill Patients Urinary Catheter Date of Insertion: 08/19/22 Urinary Catheter Time of Insertion: 15:44 Date Urinary Catheter Removed: 08/20/22 Time Urinary Catheter Discontinued: 10:10 Discharge Data Studies Completed and Pending Completed Studies During Hospitalization Category Date Time Status XR cervical spine 3V* [id number] Stat Exams 08/19/22 13:39 Completed Pending at discharge Category Date Time Status Blood Culture Stat Lab 08/19/22 15:31 Results Clostridioides Difficile PCR Routine Lab 08/19/22 16:51 Ordered Enteric Bacterial Panel by PCR Routine Lab 08/19/22 16:51 Ordered Enteric Parasite Panel by PCR Routine Lab 08/19/22 16:51 Ordered Immunochemical Fecal OCB Routine Lab 08/19/22 16:51 Ordered Lactoferrin Routine Lab 08/19/22 16:51 Ordered Urine Culture Stat Lab 08/19/22 15:40 Results Radiology Impressions Cervical Spine X-Ray 08/19/22 13:39 Impression: Degenerative disc narrowing from C4-C5 to C6-C7 with accompanying anterior osteophytes. Laboratory Results WBC 15.8 10^3/uL (4.0-10.0) H 08/21/22 03:03 RBC 3.84 10^6/uL (4.1-5.3) L 08/21/22 03:03 Hgb 11.9 g/dL (11.7-16.6) 08/21/22 03:03 Hct 36.3 % (42.0-52.0) L 08/21/22 03:03 MCV 94.5 fl (80-94) H 08/21/22 03:03 MCH 31.0 pg (28.0-34.0) 08/21/22 03:03 MCHC 32.8 g/dL (30.0-36.0) 08/21/22 03:03 RDW 13.9 % (12.1-15.1) 08/21/22 03:03 Plt Count 248 10^3/cmm (130-400) 08/21/22 03:03 MPV 11.0 fL (7.4-10.4) H 08/21/22 03:03 Neut % (Auto) 90.6 % 08/21/22 03:03 Lymph % (Auto) 4.9 % 08/21/22 03:03 [place] % (Auto) 3.2 % 08/21/22 03:03 Eos % (Auto) 0.0 % 08/21/22 03:03 Baso % (Auto) 0.1 % 08/21/22 03:03 Neut # (Auto) 14.32 10^3/uL (1.8-7.7) H 08/21/22 03:03 Lymph # (Auto) 0.8 10^3/uL (0.8-4.8) 08/21/22 03:03 [place] # (Auto) 0.5 10^3/uL (0.2-0.9) 08/21/22 03:03 Eos # (Auto) 0.0 10^3/uL (0.0-0.8) 08/21/22 03:03 Baso # (Auto) 0.0 10^3/uL (0.0-0.1) 08/21/22 03:03 Nucleated RBC % (auto) 0 % 08/21/22 03:03 Nucleated RBCs # 0.0 /100WBC 08/21/22 03:03 Sodium 131 mmol/L (136-145) L 08/21/22 05:25 Potassium 4.8 mmol/L (3.5-5.1) 08/21/22 05:25 Chloride 100 mmol/L (98-107) 08/21/22 05:25 Carbon Dioxide 21 mmol/L (22-29) L 08/21/22 05:25 Anion Gap 14.8 (5-19) 08/21/22 05:25 BUN 26 mg/dL (8-23) H 08/21/22 05:25 Creatinine 1.0 mg/dL (0.7-1.2) 08/21/22 05:25 GFR Calculation Not Reportable 08/21/22 05:25 Glucose 133 mg/dL (65-115) H 08/21/22 05:25 Estimat Average Glucose 128 08/20/22 02:15 Hemoglobin A1c 6.1 % (4.0-6.0) H 08/20/22 02:15 Calculated Osmolality 279 mOsm/kg (285-295) L 08/21/22 05:25 Lactic Acid 1.2 mmol/L (0.5-2.2) 08/19/22 13:29 Calcium 9.3 mg/dL (8.5-10.5) 08/21/22 05:25 Phosphorus 3.4 mg/dL (2.5-4.5) 08/20/22 02:15 Magnesium 2.2 mg/dL (1.7-2.3) 08/20/22 02:15 Iron 54 ug/dL (59-158) L 08/19/22 13:29 TIBC 200 mcg/dl 08/19/22 13:29 % Saturation 27.0 % (20-50) 08/19/22 13:29 Unsat Iron Binding 146 ug/dL (112-347) 08/19/22 13:29 Total Bilirubin 0.5 mg/dL (0.15-1.2) 08/21/22 05:25 AST 13 U/L (0-40) 08/21/22 05:25 ALT 9 U/L (0-41) 08/21/22 05:25 Alkaline Phosphatase 147 U/L (40-130) H 08/21/22 05:25 Total Protein 6.1 g/dL (6.6-8.7) L 08/21/22 05:25 Albumin 3.1 g/dL (3.5-5.2) L 08/21/22 05:25 Globulin 3.0 g/dL (1.3-4.6) 08/21/22 05:25 Triglycerides 103 mg/dL (0-150) 08/20/22 02:15 Cholesterol 170 mg/dL (0-200) 08/20/22 02:15 LDL Cholesterol, Calc 113 mg/dL (50-129) 08/20/22 02:15 Total VLDL Cholesterol 21 mg/dL (0-30) 08/20/22 02:15 HDL Cholesterol 36 mg/dL (60-100) L 08/20/22 02:15 Cholesterol/HDL Ratio 4.72 mg/dL (1.0-5.00) 08/20/22 02:15 Lipase 21 U/L (13-60) 08/19/22 11:39 Vitamin B12 1257 pg/mL (232-1245) H 08/19/22 13:29 Folate 15.6 ng/mL (4.5-32.2) 08/19/22 13:29 Procalcitonin 0.20 ng/mL (0-0.5) 08/19/22 13:29 TSH 1.51 uIU/mL (0.27-4.20) 08/19/22 13:29 Random Cortisol 15.73 ug/dL (2.47-19.5) 08/19/22 11:39 Urine Color Yellow (Yellow) 08/19/22 15:40 Urine Appearance Clear (CLEAR) 08/19/22 15:40 Urine pH 5 (5-7) 08/19/22 15:40 Ur Specific [place] 1.015 (1.005-1.030) 08/19/22 15:40 Urine Protein Neg (Negative) 08/19/22 15:40 Urine Glucose (UA) Norm (Normal) 08/19/22 15:40 Urine Ketones 1+ (Negative) H 08/19/22 15:40 Urine Blood 2+ (Negative) H 08/19/22 15:40 Urine Nitrate Positive (Negative) H 08/19/22 15:40 Urine Bilirubin Neg (Negative) 08/19/22 15:40 Urine Urobilinogen Norm mg/dL (Negative) 08/19/22 15:40 Ur Leukocyte Esterase Trace (Negative) H 08/19/22 15:40 Urine RBC 0-4 /hpf (0-2) H 08/19/22 15:40 Urine WBC >100 /hpf (0-5) H 08/19/22 15:40 Ur Squamous Epith Cells 0-4 /hpf (0-5) H 08/19/22 15:40 Amorphous Sediment Not Reportable 08/19/22 15:40 Urine Bacteria 3+ /hpf (NONE) H 08/19/22 15:40 Urine Mucus 2+ /hpf 08/19/22 15:40 Vitals Last Vital Signs Temp 97.6 F 08/21/22 08:00 Pulse 86 08/21/22 08:00 Resp 16 08/21/22 08:00 BP 112/54 08/21/22 08:00 Pulse Ox 97 08/21/22 08:00 O2 Del Method 08/21/22 08:00 Discharge Plan Discharge Patient Disposition: Home Health Service Condition: Stable Prescriptions: New ferrous gluconate 324 mg (37.5 mg iron) Tablet 324 mg PO BIDWM Qty: 60 0RF levofloxacin 500 mg tablet 500 mg PO Q24H 3 Days Qty: 3 0RF pantoprazole [Protonix] 40 mg tablet,delayed release (DR/EC) 40 mg PO DAILY 28 Days Qty: 30 0RF citalopram 20 mg Tablet 20 mg PO DAILY Qty: 30 0RF dexamethasone 4 mg tablet See Rx Instructions .ROUTE .COMPLEX Qty: 60 0RF Rx Instructions: 4 mg twice daily for next 2 weeks followed by 4 mg twice daily for 2 week and subsequently 2 mg daily Continued alprazolam 0.25 mg tablet 0.25 mg PO TID PRN (Reason: Anxiety) Hold Instructions: Doctor's Order omeprazole 40 mg capsule,delayed release(DR/EC) 40 mg PO DAILY@0700 methotrexate 2.5 mg/mL solution 2.5 mg PO DAILY Hold Instructions: Doctor's Order magnesium 200 mg tablet 200 mg PO DAILY@0700 Hold Instructions: Doctor's Order Aspir-81 81 mg Tablet,Delayed Release (Dr/Ec) 81 mg PO DAILY tamsulosin 0.4 mg Capsule 0.4 mg PO DAILY finasteride 5 mg Tablet 5 mg PO DAILY Zyrtec 10 mg Capsule 10 mg PO DAILY Erleada 60 mg Tablet 240 mg PO DAILY Lactobacillus acidophilus 500 million cell Tablet 500 mmu cells PO DAILY temazepam 15 mg capsule 15 - 30 mg PO BEDTIME PRN (Reason: Sleep) Hold Instructions: Doctor's Order bicalutamide 50 mg Tablet 50 mg PO DAILY@0800 Qty: 60 2RF tramadol 50 mg tablet 25 mg PO Q6H PRN (Reason: pain) Qty: 30 2RF Hold Instructions: Doctor's Order Changed metoprolol tartrate 50 mg tablet 25 mg PO DAILY@0700 Qty: 30 0RF Discontinued benazepril 40 mg tablet 40 mg PO DAILY@0700 Hold Instructions: Doctor's Order dexamethasone 4 mg Tablet 4 mg PO TID Qty: 90 0RF Discharge Orders: Discharge Order (Routine); Ordered 08/21/22 Ordered By: Patricio Hernandez Referrals: Zach Byrd MD [Primary Care Provider] - 2 weeks Discharge Diet: Cardiac Discharge Activity: Resume usual activity and Increase activity as tolerated Patient Instructions: Opioid Safety Activity Restrictions/Additional Instructions: Please check your blood pressure daily and monitor blood pressure diary. Goal blood pressure less than 140/90 MAG with systolic of more than 100. Going forward take dexamethasone 4 mg twice daily for next 2 weeks followed by 4 mg once daily for 2 weeks and then subsequently decreasing to 2 mg oral daily. Check your blood pressures daily and HD systolic blood pressures on decreasing your dose to 2 mg daily are dropping less than 100 he can increase the dose again to 4 mg daily. For now do not take your BenzePrO. Dose of metoprolol has been decreased to 25 mg oral daily. Please follow-up with a primary care provider within the next 2 weeks. Discharge Attestations Time Spent in Discharge Care*: greater than 30 min Specific Discharge Activities: educating patient, educating and/or supporting family/caregiver, discussing with pcp/other providers, discussing with comp field case manager/social workers/dc planners, documenting/other paperwork and evaluating patient/reviewing data Status at Discharge: Cognitive status at discharge: mildly impaired cognition, Behavioral status at discharge: cooperative, Functional status at discharge: uses cane/walker, Overall status at discharge: patient is back to baseline Quality Metrics Clinical Quality Measures [ No reported AMI, CVA or VTE this stay] Coding Level of Care Code Acute [facility] DC note Diagnoses Hypotension I95.9 Adrenal insufficiency E27.40 Diarrhea R19.7 Prostate cancer metastatic to multiple sites C61 Meningeal carcinomatosis C79.49; C80.1 CKD (chronic kidney disease) N18.9
[2022-08-21 12:00] VITALS: BP 112/65; PULSE 68; RESP 16; TEMP 36.5; O2SAT 96
[2022-08-21 12:05] VITALS: BP 112/65; PULSE 68; RESP 16; TEMP 36.5; O2SAT 96
--- NOTE | 2022-08-21 13:36 | PC.NURSE ---
Home med question notified pt and his SO Tete thru her phone to resume pt's methothrexate on 08/27/22 per hospitalist order
[2022-08-21 19:32] LABS: Bacillus cereus group Not Detected (NOT DETECT); Bacillus subtillis group Not Detected (NOT DETECT); Corynebacterium Not Detected (NOT DETECT); Cutibacterium acnes (P.acnes) Not Detected (NOT DETECT); Enterococcus Not Detected (NOT DETECT); Enterococcus faecalis Not Detected (NOT DETECT); Enterococcus faecium Not Detected (NOT DETECT); Lactobacillus species Not Detected (NOT DETECT); Listeria Not Detected (NOT DETECT); Listeria monocytogenes Not Detected (NOT DETECT); Micrococcus Not Detected (NOT DETECT); Pan Candida Not Detected (NOT DETECT); Pan Gram-Negative Not Detected (NOT DETECT); Staphylococcus epidermidis Detected (NOT DETECT); Staphylococcus lugdunensis Not Detected (NOT DETECT); Staphylococcus species Detected (NOT DETECT); Streptococcus agalactiae Not Detected (NOT DETECT); Streptococcus anginosus group Not Detected (NOT DETECT); Streptococcus pneumoniae Not Detected (NOT DETECT); Streptococcus pyogenes Not Detected (NOT DETECT); Streptococcus species Not Detected (NOT DETECT); mecA Detected (NOT DETECT); mecC Not Detected (NOT DETECT)
== END 2022-08-21 12:59 | disposition home health service (06) ==
LOC: ER 13:39 → ICU 17:46 → MEDSURG 08-21 10:57 → ICU 08-24 09:12
PROVIDERS: Admitting Provider Student in an Organized Health Care Education/Training Program; Emergency Provider Family Medicine; PCP Family Medicine; Visit Provider Student in an Organized Health Care Education/Training Program
DX: I95.9 Hypotension, unspecified (principal); E27.40 Unspecified adrenocortical insufficiency; R19.7 Diarrhea, unspecified; C61 Malignant neoplasm of prostate; C79.49 Secondary malignant neoplasm of other parts of nervous system; N18.9 Chronic kidney disease, unspecified; Z79.82 Long term (current) use of aspirin; F41.9 Anxiety disorder, unspecified; Z87.891 Personal history of nicotine dependence
CPT/HCPCS: 36415; 51702; 72040; 80053; 80061; 81001; 82533; 82607; 82746; 83036; 83540; 83550; 83605; 83690; 83735; 84100; 84145; 84443; 85025; 86403; 87040; 87077; 87086; 87150; 87186; 87205; 87449; 87641; 93005; 96361; 96374; 97161; 97530; 99285; C9113; G0378; J0696; J1100; J1720; J2405; J7030

== ENCOUNTER 2022-08-23 08:00 | Oncology outpatient (recurring) (ONCR) | payer MEDICARE, SELFPAY ==
--- NOTE | 2022-07-29 11:38 | ONCRAD EPV_ITS ---
Radiation Oncology Established Patient Visit Patient: Scott Leos [id number] : 1940 Age: 82 Sex: Male Dictated by: Dr. Robbie Ramires Date of Service: 07/29/2022 Referring Physician(s) : En Biggs M.D. 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 ID: Brain, Energy: 6X, Dose/Fx (cGy): 300, #Fx: , Dose Correction (cGy): 0, Total Dose (cGy): 3,000, Start Date: 06/21/2022, End Date: 07/02/2022, Elapsed Days: 11 Current History: Mr. Chavez completed palliative whole brain radiation slightly less than 4 weeks ago. Overall his neurologic status is stable to improved. He has not noticed any cognitive decline. His only recent fall was actually falling out of bed. He had no injury. He walks without difficulty, though he moves very slowly. He has noticed some leg weakness when he tries to arise from a sitting position. He points toward his quadriceps just above the knee to point out the area he perceives the weakness. He has not had any recurrence of aphasia, which was his presenting symptom. No hearing difficulty. No skin problems in the area of treatment. Current Medications: Allergy, aLPRAZolam, aspirin 81, benazepril HCl, bicalutamide, finasteride, folic Acid, lactobacillus Acid-Pectin, magnesium Bisglycinate, methotrexate, metoprolol Tartrate, omeprazole, restoril, tamsulosin HCl. Allergies: No Known Allergies Current Complaints / Review of Systems: . Vital Signs: Performed on 07/29/2022 10:08 AM BMI - 27.181 kg/m2 (high), Height - 66 in, Weight - 168.4 lbs, Temperature - 97.5 f, Pulse - 63 /min, Respiration - 16 /min, O2 Sat - 98 %, Pain - 2, Fatigue - 4 and BP - 123/ 68 mm(hg). Physical Exam: General: Alert and oriented x 3. No acute distress. HEENT: Normocephalic, atraumatic. Extraocular Movements Intact: Sclerae anicteric. Oral cavity is moist. No yeast or viral ulcerations. NECK: Supple without supraclavicular or jugular lymphadenopathy. LUNGS: Clear to auscultation bilaterally Oral cavityithout rales, rhonchi or wheeze. HEART: Regular rate and rhythm, normal S1 and S2 without murmur, gallop or rub. MUSCULOSKELETAL: No tenderness or percussion pain over the axial skeleton, scapulae or pelvis. ABDOMEN: Soft, nontender, nondistended without masses or organomegaly. NEUROLOGIC: Cranial nerves II ???XII are grossly intact. Normal sensation, slow but steady gait, no ataxia. Motor strength is symmetrical in all extremities. He does have weakness of the quadriceps bilaterally with strength estimated to be 3/5. Pxldiq-tq-kvhw exam intact. Iygz-qe-sntq exam intact Performance Status: ECOG 2 Lab: None pending. Pathology: Genetic studies from prostate biopsy pending Imaging: See HPI Impression: Stable following whole brain radiation. No new or troublesome neurologic symptoms. No evidence of cognitive decline at this point. He will receive systemic therapy. He is still on his dexamethasone. I discussed that the steroids are producing quad weakness and we need to get him off them. I gave him a tapering schedule. Signed by: 07/29/2022 11:37:40 AM <<Signature on File>> Time spent with patient: CPT Code: CPT Code:
[2022-08-23 09:16] LABS: Hematocrit 34.9 % (42.0-52.0); Hemoglobin 11.5 g/dL (11.7-16.6); Lymphocytes # 0.6 10^3/uL (0.8-4.8); Mean Corpuscular Hemoglobin 30.7 pg (28.0-34.0); Mean Corpuscular Volume 93.1 fl (80-94); Mean Platelet Volume 9.6 fL (7.4-10.4); Monocytes # 0.5 10^3/uL (0.2-0.9); Monocytes % 6.4 %; Neutrophils # 6.54 10^3/uL (1.8-7.7); Neutrophils % 83.7 %; Nucleated Red Blood Cells % 0 %; Platelet Count 270 10^3/cmm (130-400); Red Blood Count 3.75 10^6/uL (4.1-5.3); Red Cell Distribution Width 14.4 % (12.1-15.1); White Blood Count 7.8 10^3/uL (4.0-10.0)
[2022-08-23 09:43] LABS: Alanine Aminotransferase 15 U/L (0-41); Albumin Level 3.5 g/dL (3.5-5.2); Alkaline Phosphatase 154 U/L (40-130); Anion Gap 15.2 (5-19); Aspartate Amino Transferase 26 U/L (0-40); Blood Urea Nitrogen 25 mg/dL (8-23); Carbon Dioxide 24 mmol/L (22-29); Chloride 103 mmol/L (98-107); Globulin 2.7 g/dL (1.3-4.6); Glucose 125 mg/dL (65-115); Osmolality Calculated 290 mOsm/kg (285-295); Potassium 5.2 mmol/L (3.5-5.1); Sodium 137 mmol/L (136-145); Total Bilirubin 0.6 mg/dL (0.15-1.2); Total Protein 6.2 g/dL (6.6-8.7)
== END 2022-08-27 23:59 | disposition home or self-care (01) ==
PROVIDERS: Internal Medicine Medical Oncology; PCP Family Medicine; Visit Provider Radiology Radiation Oncology
DX: C61 Malignant neoplasm of prostate (principal); C79.51 Secondary malignant neoplasm of bone; C79.31 Secondary malignant neoplasm of brain; N39.0 Urinary tract infection, site not specified; I95.9 Hypotension, unspecified; N17.9 Acute kidney failure, unspecified; E86.0 Dehydration; E27.40 Unspecified adrenocortical insufficiency; R19.7 Diarrhea, unspecified; Z79.2 Long term (current) use of antibiotics; Z79.52 Long term (current) use of systemic steroids; Z79.818 Long term (current) use of other agents affecting estrogen receptors and estrogen levels; Z79.899 Other long term (current) drug therapy; Z87.891 Personal history of nicotine dependence
CPT/HCPCS: 36415; 80053; 84153; 85025; 99024; 99215

== ENCOUNTER 2022-09-13 15:47 | Observation (INO) | payer MEDICARE, SELFPAY ==
[2022-09-13 15:52] VITALS: BP 127/74; PULSE 114; RESP 20; TEMP 36.8; O2SAT 97; BMI 23.2
--- NOTE | 2022-09-13 16:43 | ED_ITS ---
HPI - Weakness General: Chief complaint: Weakness Stated complaint: Cancer pt, fall, rash, weakness, fever Time Seen by Provider: 09/13/22 16:42 History of Present Illness: Mr. Chavez is an 82-year-old gentleman with significant past medical history of known prostate cancer with history of brain metastases presenting to the emergency department due to generalized illness. He notes increased lower extremity weakness over the past few days however as this is markedly worsened over the past day and again seemed confused. Additionally he has decreased appetite and p.o. intake. Intensity symptoms is moderate to severe. Denies other specific focal infectious symptoms. No other specific changes in health, exacerbating, or alleviating factors identified. Onset (ago): day(s) Location: generalized Severity: moderate Exacerbating factors: exertion Review of Systems General: Reports: 10 or more systems reviewed and unremarkable except in HPI and below PFSH ED PFSH: Medical History Acute metabolic encephalopathy Acute renal failure Adrenal insufficiency Anxiety CKD (chronic kidney disease) Enlarged prostate with lower urinary tract symptoms (LUTS) GERD (gastroesophageal reflux disease) Hematuria Hyperkalemia Hypertension Meningeal carcinomatosis Prostate cancer Prostate cancer metastatic to multiple sites Rheumatoid arthritis Urethral bleeding Secondary to forcibly withdrawn Tidwell catheter with balloon intact, patient Surgical History Heel fracture bilateral from fall -- bilateral repair with hardware History of hernia repair (02/09/21) Repair of incarcerated ventral hernia History of oral surgery teeth extraction History of tonsillectomy Family History Other Family history unknown Social History Smoking and tobacco status: former smoker (smoked 10+ years) Alcohol intake: never Marital status: / Marital status details: The patient's spouse around 2014 Current occupational status: retired 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 History of recent travel: No Physical Exam Const: COMMON NORMALS: alert GENERAL APPEARANCE: cooperative, well developed and ill appearing HENMT: COMMON NORMALS: normocephalic and atraumatic HEAD & SCALP: normocephalic and atraumatic THROAT: posterior oropharynx normal Eye: COMMON NORMALS: conjunctivae normal CONJUNCTIVA: Yes conjunctivae normal SCLERA: sclerae normal Neck/C-Spine: COMMON NORMALS: supple GENERAL: Yes trachea midline Resp: COMMON NORMALS: clear to auscultation bilaterally EFFORT & INSPECTION: Yes able to speak in complete sentences and Yes tachypneic AUSCULTATION: clear to auscultation bilaterally Cardio: COMMON NORMALS: regular rhythm RATE: tachycardic RHYTHM: regular rhythm GI: COMMON NORMALS: Soft to palpation PALPATION: Yes Soft to palpation and No Tenderness to palpation present (GI) Extremity: GENERAL: Yes normal exam except as noted and Yes edema Neuro: COMMON NORMALS: moves all extremities SENSORIUM/ORIENTATION: Yes alert and No Orientation impaired Psych: COMMON NORMALS: mental status grossly normal and Normal thought process present THOUGHT PROCESS: Normal thought process present Course Vital Signs: Vital signs: Vital Signs Temperature 97.6 F 09/15/22 08:00 Pulse Rate 57 L 09/15/22 08:00 Respiratory Rate 15 09/15/22 08:00 Blood Pressure 127/64 09/15/22 12:00 Pulse Oximetry 93 09/15/22 08:00 Oxygen Delivery Me thod 09/15/22 08:00 MDM - Weakness Medical Decision Making 82-year-old gentleman with history of cancer presenting with weakness and swelling. He has had falls and poor p.o. intake. Nonfocal neurologic exam. Patient is somewhat ill-appearing though nontoxic. EKG shows sinus rhythm, no STEMI. Laboratory studies notable for normal white blood cell count and hemoglobin. Metabolic panel with hyponatremia and evidence of dehydration. Delta troponin negative. No UTI. Chest x-ray with no lobar consolidation or pneumothorax, chronic left seventh rib lesion. CT imaging with worsening metastatic disease though no other clear etiology for symptoms. Most likely etiology of patient's symptoms is dehydration and cancer related. The results of ED evaluation were discussed with the patient including plan for admission due to requirement for level of care not available if discharged to prevent significant worsening/deterioration. Patient agreeable with plan. Medical Records I reviewed the patient's medical records. Lab Data I reviewed the patient's lab results. : 09/14/22 04:23 09/14/22 04:23 Radiology Impressions Cervical Spine CT 09/13/22 17:00 IMPRESSION: 1. Degenerative changes as described. 2. Sclerotic lesions in the cervical spine worrisome for bone metastasis. 3. No cervical spine fracture is identified. Chest X-Ray 09/13/22 17:00 IMPRESSION: 1. No acute infiltrate 2. Left 7th rib lesion as seen on prior CT scan. Head CT 09/13/22 17:00 IMPRESSION: 1. Bone metastasis increased from 07/16/2022 2. Atrophy and chronic ischemic changes. 3. No acute intracranial finding 4. Mild sinus disease Chest/Abdomen/Pelvis CT 09/13/22 18:33 IMPRESSION: 1. Increasing bone metastasis consistent with bone metastasis from the patient's known prostate cancer. 2. No acute pulmonary infiltrates. IMPRESSION: 1. Progression of bone metastasis from the patient's known prostate cancer. 2. Prosthetic enlargement not significantly changed. 3. Cholelithiasis 4. Multiple bilateral renal cysts. 5. No acute finding. COMMENTS: Consistent with the [employer]'s Incidental Findings Committee white paper (J Am Juana Radiol 2018): Any incidental renal lesion less than 1 cm or classified as too small to characterize, or any incidental cystic renal lesion characterized as simple-appearing, is likely benign. No follow-up imaging is recommended for these lesions per consensus recommendations based on imaging criteria. Laboratory Results WBC 8.1 10^3/uL (4.0-10.0) 09/13/22 17:30 RBC 3.98 10^6/uL (4.1-5.3) L 09/13/22 17:30 Hgb 12.8 g/dL (11.7-16.6) 09/13/22 17:30 Hct 39.6 % (42.0-52.0) L 09/13/22 17:30 MCV 99.5 fl (80-94) H 09/13/22 17:30 MCH 32.2 pg (28.0-34.0) 09/13/22 17:30 MCHC 32.3 g/dL (30.0-36.0) 09/13/22 17:30 RDW 18.4 % (12.1-15.1) H 09/13/22 17:30 Plt Count 72 10^3/cmm (130-400) L 09/13/22 17:30 MPV 10.8 fL (7.4-10.4) H 09/13/22 17:30 Neut % (Auto) 92.6 % 09/13/22 17:30 Lymph % (Auto) 3.3 % 09/13/22 17:30 [place] % (Auto) 3.1 % 09/13/22 17:30 Eos % (Auto) 0.0 % 09/13/22 17:30 Baso % (Auto) 0.1 % 09/13/22 17:30 Neut # (Auto) 7.49 10^3/uL (1.8-7.7) 09/13/22:30 Lymph # (Auto) 0.3 10^3/uL (0.8-4.8) L 09/13/22:30 [place] # (Auto) 0.3 10^3/uL (0.2-0.9) 09/13/22:30 Eos # (Auto) 0.0 10^3/uL (0.0-0.8) 09/13/22: Baso # (Auto) 0.0 10^3/uL (0.0-0.1) 09/13/22: Nucleated RBC % (auto) 0 % 09/13/22: Nucleated RBCs # 0.0 /100WBC 09/13/22 17:30 Sodium 125 mmol/L (136-145) L 09/13/22 17: Potassium 4.2 mmol/L (3.5-5.1) 09/13/22: Chloride 93 mmol/L (98-107) L 09/13/22:30 Carbon Dioxide 17 mmol/L (22-29) L 09/13/22: Anion Gap 19.2 (5-19) H 09/13/22: BUN 28 mg/dL (8-23) H 09/13/22 17:30 Creatinine 0.7 mg/dL (0.7-1.2) 09/13/22 17:30 GFR Calculation Not Reportable 09/13/22: Glucose 133 mg/dL (65-115) H 09/13/22:30 Calculated Osmolality 267 mOsm/kg (285-295) L 09/13/22 17:30 Lactic Acid 2.8 mmol/L (0.5-2.2) H 09/13/22:30 Lactic Acid (Sepsis) 2.1 mmol/L (0.5-2.2) 09/13/22 20:43 Calcium 8.9 mg/dL (8.5-10.5) 09/13/22 17:30 Total Bilirubin 1.3 mg/dL (0.15-1.2) H 09/13/22 17:30 AST 37 U/L (0-40) 09/13/22 17:30 ALT 44 U/L (0-41) H 09/13/22 17:30 Alkaline Phosphatase 124 U/L (40-130) 09/13/22 17:30 Troponin T Baseline 40 ng/L (0-15) H 09/13/22 17:30 Troponin T 120 Minute 34.91 ng/L (0-15) H 09/13/22 19:14 Delta Troponin T -5.09 ABS# (0-10) L 09/13/22 19:14 C-Reactive Protein 4.9 mg/L (0.0-4.9) 09/13/22 17:30 NT-Pro-B Natriuret Pep 514 pg/mL (0-450) H 09/13/22 17:30 Total Protein 6.2 g/dL (6.6-8.7) L 09/13/22 17:30 Albumin 3.4 g/dL (3.5-5.2) L 09/13/22 17:30 Globulin 2.8 g/dL (1.3-4.6) 09/13/22 17:30 Lipase 39 U/L (13-60) 09/13/22 19:14 Procalcitonin 0.09 ng/mL (0-0.5) 09/13/22 17:30 TSH 1.37 uIU/mL (0.27-4.20) 09/13/22 17:30 Urine Color Yellow (Yellow) 09/13/22 20:01 Urine Appearance Clear (CLEAR) 09/13/22 20: Urine pH 6.5 (5-7) 09/13/22 20: Ur Specific [place] 1.010 (1.005-1.030) 09/13/22 20:01 Urine Protein Neg (Negative) 09/13/22 20:01 Urine Glucose (UA) Norm (Normal) 09/13/22 20: Urine Ketones Negative (Negative) 09/13/22 20: Urine Blood Neg (Negative) 09/13/22 20:01 Urine Nitrate Negative (Negative) 09/13/22 20:01 Urine Bilirubin Neg (Negative) 09/13/22 20:01 Urine Urobilinogen Norm mg/dL (Negative) 09/13/22 20:01 Ur Leukocyte Esterase Negative (Negative) 09/13/22 20:01 Discharge Plan Discharge Patient Disposition: Placed in Observation Admit Provider: Mari Ugarte Clinical Impression: Dehydration, Weakness, Falls Discharge Diet: Usual diet Discharge Activity: Resume usual activity Coding Level of Care Code ED Riddler Operator for Yamilex Lares
--- NOTE | 2022-09-13 17:00 | CTR_ITS ---
PROCEDURE INFORMATION: Exam: CT Head Without Contrast Exam date and time: 09/13/2022 5:38 PM Age: 82 years old Clinical indication: Injury or trauma; Blunt trauma (contusions or hematomas) and other: Syncopal fall; Without loss of consciousness; Weakness, extremity; Additional info: Weak, falls, HX brain mets TECHNIQUE: Imaging protocol: Computed tomography of the head without contrast. Radiation optimization: All CT scans at this facility use at least one of these dose optimization techniques: automated exposure control; mA and/or kV adjustment per patient size (includes targeted exams where dose is matched to clinical indication); or iterative reconstruction. COMPARISON: CT head wo con* [id number] 07/16/2022 5:31 PM RADIATION DOSE METRICS: Total DLP (mGy-cm): 1232.85 FINDINGS: Brain: There is moderate cortical atrophy. Low-density changes in the white matter are consistent with nonspecific small vessel chronic ischemic change. There is no intracranial mass, hemorrhage or edema. Cerebral ventricles: No ventriculomegaly. Paranasal sinuses: There is mucosal thickening and fluid in the left frontal sinus and fluid in the bilateral maxillary sinuses as well as partial opacification of some ethmoid air cells. Mastoid air cells: Visualized mastoid air cells are well aerated. Bones/joints: There are sclerotic densities in the occipital condyles of the skull, right sphenoid bone, and also in the bilateral mandibular condyles worrisome for bone metastasis. These are increased from previous. No calvarial fracture is demonstrated. Soft tissues: Unremarkable. CT/CT head wo con* [id number] IMPRESSION: 1. Bone metastasis increased from 07/16/2022 2. Atrophy and chronic ischemic changes. 3. No acute intracranial finding 4. Mild sinus disease
--- NOTE | 2022-09-13 17:00 | XRR_ITS ---
PROCEDURE INFORMATION: Exam: XR Chest Exam date and time: 09/13/2022 5:12 PM Age: 82 years old Clinical indication: Chest wall pain; Additional info: Weakness TECHNIQUE: Imaging protocol: Radiologic exam of the chest. Views: 1 view. COMPARISON: CT chest abdpel [id number] 06/14/2022 6:33 PM FINDINGS: Lungs: Visualized portions of the lungs are clear. Pleural spaces: Unremarkable. No pleural effusion. No pneumothorax. Heart/Mediastinum: Heart is within normal limits of size. Bones/joints: There is sclerotic area in the lateral aspect of the left 7th rib as described on prior CT scan of the chest. This may represent bone metastasis. XR/XR chest 1V portable [id number] IMPRESSION: 1. No acute infiltrate 2. Left 7th rib lesion as seen on prior CT scan.
--- NOTE | 2022-09-13 17:00 | CTR_ITS ---
PROCEDURE INFORMATION: Exam: CT Cervical Spine Without Contrast Exam date and time: 09/13/2022 5:41 PM Age: 82 years old Clinical indication: Injury or trauma; Fall; Blunt trauma; Injury details: HX of syncopal episode, leg weakness TECHNIQUE: Imaging protocol: Computed tomography of the cervical spine without contrast. Radiation optimization: All CT scans at this facility use at least one of these dose optimization techniques: automated exposure control; mA and/or kV adjustment per patient size (includes targeted exams where dose is matched to clinical indication); or iterative reconstruction. COMPARISON: 1. CR XR cervical spine 3V* [id number] 08/19/2022 1:[address] [place] [id number] 06/14/2022 6:33 PM RADIATION DOSE METRICS: Total DLP (mGy-cm): 197.97 FINDINGS: Bones/joints: There are new sclerotic densities in the upper thoracic spine left side of the T1 vertebral body and in the posterior elements of T1. This could represent new or increasing bone metastasis. There is also sclerotic density posterior right 2nd rib consistent with bone metastasis, probably not significantly changed. There are multiple sclerotic lesions in the cervical spine worrisome for bone metastasis, present in anterior arch of C1 in all of the vertebral bodies as well as C6 and C7 spinous processes and also in the skull base involving the occipital condyles consistent with bone metastasis. There is decreased height of the C4-C5, C5-C6 and C6-C7 disc spaces in keeping with disc degeneration. There are small anterior and posterior osteophytes. Degenerative changes are present in facet joints at multiple levels. No cervical spine fracture is identified. Lungs: Lung apices are normal. Soft tissues: The prevertebral soft tissues are unremarkable. CT/CT cervical spin wo con* [id number] IMPRESSION: 1. Degenerative changes as described. 2. Sclerotic lesions in the cervical spine worrisome for bone metastasis. 3. No cervical spine fracture is identified.
--- NOTE | 2022-09-13 17:01 | ECG_ITS ---
[facility] Test Date: 2022-09-13 Pat Name: Deric Chavez Department: Room: Gender: Male Pilot Manager: : 1940 Requested By: Pito Boo Order Number: [id number] Hesham MD: Terry Canas M.D. Measurements Intervals [place] Rate: 75 P: 70 NV: 179 QRS: 4 QRSD: 85 T: 60 QT: 382 QTc: 427 Interpretive Statements SINUS RHYTHM WITH SINUS ARRHYTHMIA Compared to ECG 08/19/2022 11:02:14 Myocardial infarct finding no longer present Electronically Signed On 09-14-2022 3:46:54 CDT by Terry Canas M.D. [email or web address].[employer]/store/OM/[id number]
[2022-09-13 17:51] LABS: Basophils % 0.1 %; Hematocrit 39.6 % (42.0-52.0); Hemoglobin 12.8 g/dL (11.7-16.6); Lymphocytes # 0.3 10^3/uL (0.8-4.8); Lymphocytes % 3.3 %; Mean Corpuscular HGB Conc 32.3 g/dL (30.0-36.0); Mean Corpuscular Hemoglobin 32.2 pg (28.0-34.0); Mean Corpuscular Volume 99.5 fl (80-94); Mean Platelet Volume 10.8 fL (7.4-10.4); Monocytes # 0.3 10^3/uL (0.2-0.9); Monocytes % 3.1 %; Neutrophils # 7.49 10^3/uL (1.8-7.7); Neutrophils % 92.6 %; Nucleated Red Blood Cells % 0 %; Platelet Count 72 10^3/cmm (130-400); Red Blood Count 3.98 10^6/uL (4.1-5.3); Red Cell Distribution Width 18.4 % (12.1-15.1); White Blood Count 8.1 10^3/uL (4.0-10.0)
[2022-09-13] MEDS: sodium chloride 0.9% 1,000 ML 999 ML IV (17:51)
[2022-09-13 17:55] LABS: Slide Review Slide Review Perform
[2022-09-13 18:14] LABS: Lactic Sepsis W/Reflex 2.8 mmol/L (0.5-2.2)
[2022-09-13 18:32] LABS: Troponin(5th) Baseline 40 ng/L (0-15)
--- NOTE | 2022-09-13 18:33 | CTR_ITS ---
PROCEDURE INFORMATION: Exam: CT Chest With Contrast; Diagnostic Exam date and time: 09/13/2022 6:51 PM Age: 82 years old Clinical indication: Fever and other: Weakness in patient with prostate CA; Other: HX of prostate CA mets; Additional info: Weakness, infection, ? source TECHNIQUE: Imaging protocol: Diagnostic computed tomography of the chest with contrast. Radiation optimization: All CT scans at this facility use at least one of these dose optimization techniques: automated exposure control; mA and/or kV adjustment per patient size (includes targeted exams where dose is matched to clinical indication); or iterative reconstruction. Contrast material: OMNIPAQUE; Contrast volume: 95 ml; Contrast route: INTRAVENOUS (IV); COMPARISON: [place] [id number] 06/14/2022 6:33 PM RADIATION DOSE METRICS: Total DLP (mGy-cm): 989.92 FINDINGS: Thyroid: There are 2 5 mm sized cyst lower pole left thyroid. Consider further evaluation with non urgent thyroid ultrasound. Lungs: Lungs are clear. Pleural spaces: Unremarkable. No pneumothorax. No pleural effusion. Heart: Unremarkable. No cardiomegaly. No pericardial effusion. Mediastinal space: There is no evidence of mediastinal fluid, masses, or gas. Lymph nodes: Unremarkable. No enlarged lymph nodes. Vasculature: There is no thoracic aortic aneurysm or dissection. Bones/joints: There are old healed left 7th rib fracture. There are multiple sclerotic lesions in ribs, clavicles, scapulae, sternum, and in multiple vertebral bodies consistent with bone metastasis increased from 06/14/2022. Soft tissues: Unremarkable. COMMENTS: Consistent with the [employer]'s Incidental Findings Committee white paper (J Am Juana Radiol 2015): In patients aged 35 years and older with an incidental thyroid nodule equal to or greater than 1.[address], MRI or extrathyroidal US, further evaluation with dedicated thyroid US is recommended for patients with normal life expectancy and without comorbidities. For smaller nodules without suspicious features, no further evaluation or follow up is recommended. PROCEDURE INFORMATION: Exam: CT Abdomen And Pelvis With Contrast Exam date and time: 09/13/2022 6:51 PM Age: 82 years old Clinical indication: Fever and other: Weakness in patient with prostate CA; Other: HX of prostate CA mets; Additional info: Weakness, infection, ? source TECHNIQUE: Imaging protocol: Computed tomography of the abdomen and pelvis with contrast. Radiation optimization: All CT scans at this facility use at least one of these dose optimization techniques: automated exposure control; mA and/or kV adjustment per patient size (includes targeted exams where dose is matched to clinical indication); or iterative reconstruction. Contrast material: OMNIPAQUE; Contrast volume: 95 ml; Contrast route: INTRAVENOUS (IV); COMPARISON: [place] [id number] 06/14/2022 6:33 PM RADIATION DOSE METRICS: Total DLP (mGy-cm): 989.92 FINDINGS: Liver: There is no focal abnormality within the liver. Gallbladder and bile ducts: Multiple calcified gallstones are present. The gallstones are unchanged compared with previous. There is no gallbladder wall thickening or pericholecystic fluid. Pancreas: The pancreas is normal. Spleen: The spleen is normal. Adrenal glands: The adrenal glands are normal. Kidneys and ureters: There are multiple simple renal cysts. There is no evidence of hydronephrosis. There is no evidence of renal or ureteral calcifications. Largest benign simple cyst on the right is in the lower pole measuring 3 cm, on the left largest is arising from the upper pole measuring 5.5 cm. Stomach and bowel: There is no evidence of colitis/diverticulitis. Appendix: A normal appendix is identified. Intraperitoneal space: There is no evidence of free intraperitoneal fluid. Vasculature: The aorta demonstrates mild atherosclerotic calcification. There is no evidence of an abdominal aortic aneurysm. Lymph nodes: There is no evidence of lymphadenopathy. Urinary bladder: Unremarkable as visualized. Reproductive: The prostate gland demonstrates nonspecific parenchymal calcifications. The prostate demonstrates marked nonspecific enlargement. The seminal vesicles are normal. Appearance of the prostate not significantly changed. Bones/joints: Sclerotic bone metastasis are larger, denser and more numerous than on the previous examination consistent with progression of bone metastasis. There is mild decreased height of L3 stable from the previous examination. No fracture is identified. Soft tissues: There are small bilateral inguinal hernias containing only fat. CT/CT chest abd pel w con* IMPRESSION: 1. Increasing bone metastasis consistent with bone metastasis from the patient's known prostate cancer. 2. No acute pulmonary infiltrates. IMPRESSION: 1. Progression of bone metastasis from the patient's known prostate cancer. 2. Prosthetic enlargement not significantly changed. 3. Cholelithiasis 4. Multiple bilateral renal cysts. 5. No acute finding. COMMENTS: Consistent with the [employer]'s Incidental Findings Committee white paper (J Am Juana Radiol 2018): Any incidental renal lesion less than 1 cm or classified as too small to characterize, or any incidental cystic renal lesion characterized as simple-appearing, is likely benign. No follow-up imaging is recommended for these lesions per consensus recommendations based on imaging criteria.
[2022-09-13 18:40] LABS: NT Pro B Type Natriuretic Pept 514 pg/mL (0-450); Procalcitonin 0.09 ng/mL (0-0.5); Thyroid Stimulating Hormone 1.37 uIU/mL (0.27-4.20)
[2022-09-13 18:51] LABS: Alanine Aminotransferase 44 U/L (0-41); Albumin Level 3.4 g/dL (3.5-5.2); Alkaline Phosphatase 124 U/L (40-130); Aspartate Amino Transferase 37 U/L (0-40); Blood Urea Nitrogen 28 mg/dL (8-23); C Reactive Protein 4.9 mg/L (0.0-4.9); Calcium 8.9 mg/dL (8.5-10.5); Carbon Dioxide 17 mmol/L (22-29); Chloride 93 mmol/L (98-107); Creatinine Clr Calc Pharmacy 70.4722; Globulin 2.8 g/dL (1.3-4.6); Glucose 133 mg/dL (65-115); Osmolality Calculated 267 mOsm/kg (285-295); Sodium 125 mmol/L (136-145); Total Bilirubin 1.3 mg/dL (0.15-1.2); Total Protein 6.2 g/dL (6.6-8.7)
[2022-09-13] MEDS: iohexol 350 mg/mL 100 mL Btl IV (18:51)
[2022-09-13 18:52] LABS: Anion Gap 19.2 (5-19); Potassium 4.2 mmol/L (3.5-5.1)
[2022-09-13 19:16] VITALS: BP 129/61; PULSE 69; RESP 16; O2SAT 97
--- NOTE | 2022-09-13 19:18 | PC.NURSE ---
Report from BRIDGER Yanez. Pt denies needs at this time.
[2022-09-13 19:24] LABS: Reflex Lactate Order REFLEX LACTIC ORDERD
[2022-09-13 19:54] LABS: Troponin 5 2HR 34.91 ng/L (0-15)
[2022-09-13 19:56] LABS: Lipase 39 U/L (13-60); Troponin 5 2HR Delta -5.09 ABS# (0-10)
[2022-09-13 20:04] LABS: Add Urine Microscopic? NO; Charge for UA Resulting for Rev
[2022-09-13 20:47] LABS: Bilirubin Urine Neg (Negative); Blood Urine Neg (Negative); Glucose Urine UA Norm (Normal); Ketones Urine Negative (Negative); Leukocyte Esterase Urine Negative (Negative); Nitrate Urine Negative (Negative); Protein Urine Neg (Negative); Urine Appearance Clear (CLEAR); Urine Color Yellow (Yellow); Urobilinogen Urine Norm (Negative); pH Urine 6.5 (5-7)
[2022-09-13 21:21] LABS: Lactic Acid level (Lactate) 2.1 mmol/L (0.5-2.2)
[2022-09-13 22:06] VITALS: BP 140/68; BP 162/73; PULSE 65; PULSE 78; RESP 17; RESP 18; TEMP 36.9; O2SAT 96; O2SAT 98
--- NOTE | 2022-09-13 22:17 | PC.NURSE ---
Brief changed, pt placed in gown and repositioned in bed.
[2022-09-13 22:37] VITALS: BMI 23.2
--- NOTE | 2022-09-13 23:01 | ECG_ITS ---
[facility] Test Date: 2022-09-13 Pat Name: Deric Chavez Department: Room: Gender: Male Schedule Maker: : 1940 Requested By: Pito Boo Order Number: [id number] Hesham MD: Terry Canas M.D. Measurements Intervals [place] Rate: 68 P: 75 [place]: 192 QRS: 18 QRSD: 84 T: 60 QT: 418 QTc: 445 Interpretive Statements SINUS RHYTHM Compared to ECG 09/13/2022 17:56:50 Sinus arrhythmia no longer present Electronically Signed On 09-14-2022 3:48:52 CDT by Terry Canas M.D. [email or web address] [facility] hospitalA&G Pharmaceuticalclevel[facility] clinic [facility] for rehabilitationDiavibe/store/OM/[id number]
[2022-09-13 23:22] LABS: Troponin 5 6HR 37.19 ng/L (0-15)
[2022-09-13] MEDS: sodium chloride 0.9% 1,000 ML 75 ML IV (23:22)
[2022-09-13 23:24] LABS: Troponin 5 6HR Delta -2.81 ng/L (0-12)
[2022-09-13] MEDS: enoxaparin 40 mg/0.4 mL Syringe SUBCUT (23:24)
[2022-09-14] VITALS (7 sets, daily range): BP systolic 118–154; BP diastolic 53–77; PULSE 59–70; RESP 16–17; TEMP 36.4–36.9; O2SAT 91–98
--- NOTE | 2022-09-14 01:00 | PM.HP ---
Providers/Chief Complaint Admitting Physician: Mari Ugarte MD Chief Complaint: Cancer pt, fall, rash, weakness, fever History of Present Illness History is obtained by talking to patient's friend Ms. Tete Mcgarry. Patient is currently oriented x2, does not recall most events leading up to hospitalization today. Deric Chavez is a 82 year old male with metastatic prostate cancer with leptomeningeal spread and recent brain irradiation, adrenal insufficiency with cortisol level of less than 2 on previous admission, history of intermittent confusion. Per review of his outpatient oncology notes, his functional status has been slowly declining. He has been very weak, he has had intermittent confusion and hallucinations. Prior notes make reference to his , however the person taking care of him right now is . Tete Mcgarry who is his friend, patient resides with her currently, and is his designated decision maker. Patient is brought into the emergency room today after having sustained a fall at home. Ms. Mcgarry reports that patient was in the bathroom, did not respond for a while, and then was found to have slumped onto the floor with his head on the ground. He was cold to touch, confused and delirious. Since presentation to the ER, he has been having intermittent episodes of confusion. At the time of my assessment, patient is able to tell me his name, the fact that he is in a hospital, however cannot tell me his date of or the events leading up to today's admission. He tells me he has prostate cancer but not any other details at this time. He has been falling more recently. He is afebrile and hemodynamically stable today. Labs are notable for hyponatremia with sodium of 125, previously 128 from 09/06, 137 on 08/23. He has had a poor appetite and poor oral intake over the last few days. Other lab abnormalities include anion gap of 19.2, lactate of 2.8, improved with hydration at 2.1, elevated T bili at 1.3 and mildly elevated ALT. Troponin series is negative. CT head shows increasing bony metastases. CT of the chest abdomen and pelvis showed progression of bone metastases, no change in the prostatic enlargement previously seen, cholelithiasis without signs of cholecystitis. Review of Systems General: Reports: ROS unobtainable due to medical condition Medications/Allergies Home Medications Medication Instructions Recorded Confirmed Last Taken Type alprazolam 0.25 mg tablet 0.25 mg PO TID PRN Anxiety 02/09/21 09/13/22 08/19/22 History magnesium 200 mg tablet 200 mg PO DAILY@0700 02/09/21 09/13/22 09/13/22 History Lactobacillus acidophilus 500 500 mmu cells PO DAILY 06/14/22 09/13/22 09/13/22 History million cell tablet temazepam 15 mg capsule 15 - 30 mg PO BEDTIME PRN Sleep 06/14/22 09/13/22 09/12/22 21:00 History bicalutamide 50 mg tablet 50 mg PO DAILY@0800 #60 tabs 06/16/22 09/13/22 09/13/22 Rx tramadol 50 mg tablet 25 mg PO Q6H PRN pain #30 tabs 06/16/22 09/13/22 08/19/22 Rx apalutamide 60 mg tablet (Erleada) 240 mg PO DAILY 08/19/22 09/13/22 09/13/22 History aspirin 81 mg tablet,delayed 81 mg PO DAILY 08/19/22 09/13/22 09/13/22 History release cetirizine 10 mg capsule (Zyrtec) 10 mg PO DAILY 08/19/22 09/13/22 09/13/22 History finasteride 5 mg tablet 5 mg PO DAILY 08/19/22 09/13/22 09/13/22 History tamsulosin 0.4 mg capsule 0.4 mg PO DAILY 08/19/22 09/13/22 09/13/22 History citalopram 20 mg tablet 20 mg PO DAILY #30 tabs 08/21/22 09/13/22 09/13/22 Rx dexamethasone 4 mg tablet See Rx Instructions .Route 08/21/22 09/13/22 09/13/22 Rx .COMPLEX #60 tabs ferrous gluconate 324 mg (37.5 mg 324 mg PO BIDWM #60 tabs 08/21/22 09/13/22 09/13/22 Rx iron) tablet metoprolol tartrate 50 mg tablet 25 mg PO DAILY@0700 #30 tabs 08/21/22 09/13/22 09/13/22 Rx pantoprazole 40 mg tablet,delayed 40 mg PO DAILY 4 weeks #30 tabs 08/21/22 09/13/22 09/13/22 Rx release (Protonix) benazepril 40 mg tablet 40 mg PO DAILY 09/13/22 09/13/22 09/13/22 History methotrexate sodium 2.5 mg tablet 2.5 mg PO DAILY 09/13/22 09/13/22 09/13/22 History Allergies Allergy/AdvReac Type Severity Reaction Status Date / Time No Known Allergies Allergy Verified 09/06/22 10:43 PFSH Acute PFSH: Medical History Acute metabolic encephalopathy Acute renal failure Adrenal insufficiency Anxiety CKD (chronic kidney disease) Enlarged prostate with lower urinary tract symptoms (LUTS) GERD (gastroesophageal reflux disease) Hematuria Hyperkalemia Hypertension Meningeal carcinomatosis Prostate cancer Prostate cancer metastatic to multiple sites Rheumatoid arthritis Urethral bleeding Secondary to forcibly withdrawn Tidwell catheter with balloon intact, patient Surgical History Heel fracture bilateral from fall -- bilateral repair with hardware History of hernia repair (02/09/21) Repair of incarcerated ventral hernia History of oral surgery teeth extraction History of tonsillectomy Family History Other Family history unknown Social History Smoking and tobacco status: former smoker (smoked 10+ years) Alcohol intake: never Marital status: / Marital status details: The patient's spouse around 2014 Current occupational status: retired 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 History of recent travel: No Vitals/I&O/Wt Last Vital Signs Temp 98.3 F 09/13/22 15:52 Pulse 78 09/13/22 22:06 Resp 18 09/13/22 22:06 BP 140/68 09/13/22 22:06 Pulse Ox 96 09/13/22 22:06 O2 Del Method 09/13/22 22:37 09/13/22 09/13/22 09/14/22 14:59 22:59 06:59 Intake Total 1000 / 1000 Balance 1000 / 1000 Weight last 48 hrs Weight 69.4 kg Weight 69.4 kg Physical Exam Narrative: General: No acute distress, AO x1-2 HEENT: PERRLA, pupils bilaterally equal and reactive, pallors not present Chest: Normal vesicular breath sounds, no added sounds, equal good air entry bilaterally CVS: S1-S2 regular, no murmurs, no tachycardia, no gallops, no rubs Abdomen: Soft, nontender, no organomegaly, bowel sounds present Neuro: No focal motor deficits, no facial deformity, AO x1-2, power 5/5 in all limbs Data : 09/13/22 17:30 09/13/22 17:30 Micro: Microbiology 09/13/22 17:30 Blood Culture - Preliminary Blood SPECIMEN COLLECTED 09/13/22 17:30 Blood Culture - Preliminary Blood SPECIMEN COLLECTED A&P Assessment and plan (1) Dehydration: (2) Weakness: (3) Falls: (4) Prostate cancer metastatic to multiple sites: (5) Adrenal insufficiency: Plan 82-year-old male with advanced prostate cancer with diffuse bony metastases and leptomeningeal disease, worsening functional status over the last 1 to 2 months, increasing confusion, hallucinations and delirium, brought today with fall and confusion. CT of his head shows worsening metastatic disease. CT of his chest abdomen and pelvis also also shows worsening bony metastases. Overall it appears patient's clinical condition is related to his worsening underlying cancer. Potentially may also be contributed by hyponatremia, sodium at 125 today. Suspect that this may be related to dehydration from poor p.o. intake. He has additional signs of dehydration clinically, elevated anion gap, elevated lactate. SIADH from malignancy may be contributing. IV fluid normal saline at 75 cc an hour for tonight. Reassess electrolytes with hydration with a.m. labs. Given recent adrenal insufficiency and gradual tapering of steroids, concerned that with hyponatremia there may be a component of adrenal insufficiency contributing. We will check orthostatics. Continue dexamethasone at 4 mg p.o. twice daily for now. Recent history of UTI, treated with levofloxacin, UA today is without any nitrates, leukocyte Estrace. Not indicative of UTI. Also noted to have new thrombocytopenia with platelet count at 72, may be related to bicalutamide therapy. Discussed extensively with Ms. Mcgarry that overall his cancer appears to be worsening and with poor functional status over the past few months, patient has a poor prognosis overall. I am uncertain if Mr. Chavez has insight into the extent of his disease at this time. Will discuss with oncology in the morning regarding patient's prognosis. It appears hospice may be a consideration if prognosis appears to be grim per oncology. CODE STATUS: DNR/DNI per recently stated wishes to family and review of prior records. DVT prophylaxis: Lovenox Disposition: Would prefer to return home when ready for discharge. Attestations Medical Necessity Statement*: anticipate less than 2 midnight admission for above defined care. Coding Level of Care Code Acute Supervisor Detasseling Crew for g Fwd Diagnoses Dehydration E86.0 Weakness R53.1 Falls W19.XXXA Prostate cancer metastatic to multiple sites C61 Adrenal insufficiency E27.40
[2022-09-14] MEDS: metoprolol tartrate 50 mg Tablet 25 MG PO (05:38)
[2022-09-14 06:28] LABS: Eosinophils % 0.5 %; Hematocrit 31.7 % (42.0-52.0); Hemoglobin 10.3 g/dL (11.7-16.6); Lymphocytes # 0.7 10^3/uL (0.8-4.8); Lymphocytes % 11.1 %; Mean Corpuscular HGB Conc 32.5 g/dL (30.0-36.0); Mean Corpuscular Hemoglobin 32.2 pg (28.0-34.0); Mean Corpuscular Volume 99.1 fl (80-94); Mean Platelet Volume 9.6 fL (7.4-10.4); Monocytes # 0.3 10^3/uL (0.2-0.9); Monocytes % 5.5 %; Neutrophils # 4.79 10^3/uL (1.8-7.7); Nucleated Red Blood Cells % 0 %; Platelet Count 113 10^3/cmm (130-400); Red Cell Distribution Width 18.6 % (12.1-15.1); White Blood Count 5.8 10^3/uL (4.0-10.0)
[2022-09-14 06:51] LABS: Alanine Aminotransferase 29 U/L (0-41); Albumin Level 2.6 g/dL (3.5-5.2); Alkaline Phosphatase 94 U/L (40-130); Aspartate Amino Transferase 25 U/L (0-40); Blood Urea Nitrogen 20 mg/dL (8-23); Calcium 7.4 mg/dL (8.5-10.5); Carbon Dioxide 20 mmol/L (22-29); Chloride 104 mmol/L (98-107); Creatinine Clr Calc Pharmacy 70.4722; Globulin 2.2 g/dL (1.3-4.6); Glucose 66 mg/dL (65-115); Osmolality Calculated 281 mOsm/kg (285-295); Sodium 135 mmol/L (136-145); Total Bilirubin 1.2 mg/dL (0.15-1.2); Total Protein 4.8 g/dL (6.6-8.7)
[2022-09-14 06:52] LABS: Anion Gap 14.7 (5-19); Potassium 3.7 mmol/L (3.5-5.1)
[2022-09-14 07:47] LABS: Slide Review Slide Review Perform
[2022-09-14] MEDS: tamsulosin 0.4 mg Capsule PO (07:47)
[2022-09-14] MEDS: finasteride 5 mg Tablet PO (07:47)
[2022-09-14] MEDS: citalopram 20 mg Tablet PO (07:48)
[2022-09-14] MEDS: pantoprazole DR 40 mg Tablet PO (07:48)
[2022-09-14] MEDS: aspirin 81 mg EC Tablet PO (07:48)
[2022-09-14] MEDS: dexamethasone 4 mg Tablet PO (07:48)
[2022-09-14] MEDS: sodium chloride 0.9% 1,000 ML 75 ML IV (11:53)
--- NOTE | 2022-09-14 13:55 | PM.PN ---
Subjective Subjective: Today patient seen with family at bedside. H&P appreciated. Patient is awake and alert to self, place and birthdate right now. He states he has been feeling weak. Denies any nausea, vomiting, headache. Patient's care were discussed in detail with outpatient oncologist Dr. Biggs as per request from the family. After Dr. Biggs patient is on experimental hormonal therapy for the leptomeningeal spread and unfortunately he is not a candidate for intrathecal treatment as that has not been proven to help as well. Dr. Biggs thinks patient is appropriate for hospice if him and the family is amenable. Discussed the same with the patient and his caregiver Ms. Mcgarry at bedside. Both are agreeable and wants to go ahead with hospice to maximize his comfort. Vitals/I&O/Wt Last Vital Signs Temp 98.2 F 09/14/22 11:39 Pulse 62 09/14/22 11:39 Resp 16 09/14/22 11:39 BP 132/65 09/14/22 11:39 Pulse Ox 96 09/14/22 11:39 O2 Del Method 09/14/22 11:39 09/13/22 09/14/22 09/14/22 22:59 06:59 14:59 Intake Total 1000 / 1000 240 / 1240 1418.75 / 1418.75 Output Total 250 / 250 Balance 1000 / 1000 -10 990 1418.75 / 1418.75 Weight last 48 hrs Weight 69.4 kg Weight 69.4 kg Physical Exam Narrative: General: No acute distress, AO x 2-3 HEENT: PERRLA, pupils bilaterally equal and reactive, pallors not present Chest: Normal vesicular breath sounds, no added sounds, equal good air entry bilaterally CVS: S1-S2 regular, no murmurs, no tachycardia, no gallops, no rubs Abdomen: Soft, nontender, no organomegaly, bowel sounds present Neuro: No focal motor deficits, no facial deformity, AO x1-2, power 5/5 in all limbs Data : 09/14/22 04:23 09/14/22 04:23 Micro: Microbiology 09/13/22 17:30 Blood Culture - Preliminary Blood SPECIMEN COLLECTED 09/13/22 17:30 Blood Culture - Preliminary Blood SPECIMEN COLLECTED A&P Assessment and plan (1) Dehydration: (2) Weakness: (3) Falls: (4) Prostate cancer metastatic to multiple sites: (5) Adrenal insufficiency: Plan 82-year-old male with advanced prostate cancer with diffuse bony metastases and leptomeningeal disease, worsening functional status over the last 1 to 2 months, increasing confusion, hallucinations and delirium, brought today with fall and confusion. CT of his head shows worsening metastatic disease. CT of his chest abdomen and pelvis also also shows worsening bony metastases. Overall it appears patient's clinical condition is related to his worsening underlying cancer. Potentially may also be contributed by hyponatremia, sodium at 125 today. Suspect that this may be related to dehydration from poor p.o. intake. He has additional signs of dehydration clinically, elevated anion gap, elevated lactate. SIADH from malignancy may be contributing. IV fluid normal saline at 75 cc an hour for tonight. Reassess electrolytes with hydration with a.m. labs. Given recent adrenal insufficiency and gradual tapering of steroids, concerned that with hyponatremia there may be a component of adrenal insufficiency contributing. We will check orthostatics. Continue dexamethasone at 4 mg p.o. twice daily for now. Recent history of UTI, treated with levofloxacin, UA today is without any nitrates, leukocyte Estrace. Not indicative of UTI. Also noted to have new thrombocytopenia with platelet count at 72, may be related to bicalutamide therapy. Discussed extensively with Ms. Mcgarry that overall his cancer appears to be worsening and with poor functional status over the past few months, patient has a poor prognosis overall. I am uncertain if Mr. Chavez has insight into the extent of his disease at this time. Will discuss with oncology in the morning regarding patient's prognosis. It appears hospice may be a consideration if prognosis appears to be grim per oncology. CODE STATUS: DNR/DNI per recently stated wishes to family and review of prior records. DVT prophylaxis: Lovenox Disposition: Would prefer to return home when ready for discharge. Given advanced prostate cancer with bony metastasis and leptomeningeal spread, constant functional decline with failure of outpatient treatment, severe physical deconditioning care was discussed in detail with the patient's family and outpatient oncologist. As per Dr. Biggs with patient's outpatient oncologist, hospice is appropriate. Patient and patient caregiver Ms. Mcgarry is amenable. Case management alerted. Will transition over to hospice. Normal blood work. Stop IV fluids after finishing of the back. Continue other chronic medications. Attestations Medical Necessity Statement*: Patient requires further hospitalization while hospice is arranged given advanced prostate cancer with diffuse bony metastasis and leptomeningeal spread for comfortable transition Time Spent in Patient Care: Greater than 35 minutes Coding Level of Care Code Acute Sign Designer for Chg Fwd Diagnoses Dehydration E86.0 Weakness R53.1 Falls W19.XXXA Prostate cancer metastatic to multiple sites C61 Adrenal insufficiency E27.40
--- NOTE | 2022-09-14 18:33 | PC.NURSE ---
Dr. Hernandez notified that patient was found on his knees in the floor in front of the bed. He states to have slipped out of bed onto his knees. Patient denies any pain or hitting his head. No skin abrasions or tears noted. Patient was cleaned up and put back in bed with bed alarm on.
[2022-09-14] MEDS: enoxaparin 40 mg/0.4 mL Syringe SUBCUT (22:09)
[2022-09-15] MEDS: sodium chloride 0.9% 1,000 ML 75 ML IV (01:04)
[2022-09-15 03:23] VITALS: BP 152/71; PULSE 61; RESP 16; O2SAT 98
[2022-09-15 06:27] VITALS: PULSE 58
[2022-09-15 08:00] VITALS: BP 163/88; PULSE 57; RESP 15; TEMP 36.4; O2SAT 93
[2022-09-15] MEDS: dexamethasone 4 mg Tablet PO (09:18)
[2022-09-15] MEDS: tamsulosin 0.4 mg Capsule PO (09:18)
[2022-09-15] MEDS: finasteride 5 mg Tablet PO (09:18)
[2022-09-15] MEDS: citalopram 20 mg Tablet PO (09:18)
[2022-09-15] MEDS: pantoprazole DR 40 mg Tablet PO (09:19)
[2022-09-15] MEDS: aspirin 81 mg EC Tablet PO (09:19)
--- NOTE | 2022-09-15 10:44 | PM.DCS ---
Discharge Providers Date of Admission: 09/13/22 22:33 Date of Discharge: September 15, 2022 Attending Provider at Admission: Mari Ugarte MD Attending Provider at Discharge: Patricio Hernadnez MD Diagnoses at Discharge Discharge Diagnosis (1) Dehydration: Status: Acute (2) Weakness: Status: Acute (3) Falls: Status: Acute (4) Prostate cancer metastatic to multiple sites: Status: Acute (5) Adrenal insufficiency: Status: Acute Reason for Visit Reason for Visit: Cancer pt, fall, rash, weakness, fever Hospital Course Hospital Course History is obtained by talking to patient's friend Ms. Tete Mcgarry.? Patient is currently oriented x2, does not recall most events leading up to hospitalization today.? Deric Chavez is a 82 year old male with metastatic prostate cancer with leptomeningeal spread and recent brain irradiation, adrenal insufficiency with cortisol level of less than 2 on previous admission, history of intermittent confusion.? Per review of his outpatient oncology notes, his functional status has been slowly declining.? He has been very weak, he has had intermittent confusion and hallucinations.? Prior notes make reference to his , however the person taking care of him right now is Ms. Tete Mcgarry who is his friend, patient resides with her currently, and is his designated decision maker.? Patient is brought into the emergency room today after having sustained a fall at home.? Ms. Mcgarry reports that patient was in the bathroom, did not respond for a while, and then was found to have slumped onto the floor with his head on the ground.? He was cold to touch,? confused and delirious.? Since presentation to the ER, he has been having intermittent episodes of confusion.? At the time of my assessment, patient is able to tell me his name, the fact that he is in a hospital, however cannot tell me his date of or the events leading up to today's admission.? He tells me he has prostate cancer but not any other details at this time.? He has been falling more recently.? He is afebrile and hemodynamically stable today. Labs are notable for hyponatremia with sodium of 125, previously 128 from 09/06, 137 on 08/23.? He has had a poor appetite and poor oral intake over the last few days.? Other lab abnormalities include anion gap of 19.2, lactate of 2.8, improved with hydration at 2.1, elevated T bili at 1.3 and mildly elevated ALT.? Troponin series is negative.? CT head shows increasing bony metastases.? CT of the chest abdomen and pelvis showed progression of bone metastases, no change in the prostatic enlargement previously seen, cholelithiasis without signs of cholecystitis. Patient was under the hospital further evaluation and management. He was started on IV hydration. Given multiple admissions recently, history of advanced prostate cancer with leptomeningeal spread prognosis of discussed in detail with patient and patient's outpatient oncologist Dr. Biggs. As per Dr. Biggs patient is on experimental hormonal therapy for the leptomeningeal spread and unfortunately he is not a candidate for intrathecal treatment as that has not been proven to help as well.? Dr. Biggs thinks patient is appropriate for hospice if him and the family is amenable. The same were discussed in detail with patient and patient's caregiver. They were both agreeable for hospice. Hospice is being arranged. He is being discharged back home with hospice for further care. Physical Exam Narrative: General: No acute distress, AO x 2-3 HEENT: PERRLA, pupils bilaterally equal and reactive, pallors not present Chest: Normal vesicular breath sounds, no added sounds, equal good air entry bilaterally CVS: S1-S2 regular, no murmurs, no tachycardia, no gallops, no rubs Abdomen: Soft, nontender, no organomegaly, bowel sounds present Neuro: No focal motor deficits, no facial deformity, AO x 2-3, power 5/5 in all limbs Discharge Data Studies Completed and Pending Completed Studies During Hospitalization Category Date Time Status CT cervical spin wo con* [id number] Stat Cat Scan 09/13/22 17:[address] chest abdomen pelvis [CT chest abd pel w con*] Stat Cat Scan 09/13/22 18:[address] head wo con* [id number] Stat Cat Scan 09/13/22 17:00 Completed XR chest 1V portable [id number] Stat Exams 09/13/22 17:00 Completed Pending at discharge Category Date Time Status Blood Culture Stat Lab 09/13/22 17:30 Results Radiology Impressions Cervical Spine CT 09/13/22 17:00 IMPRESSION: 1. Degenerative changes as described. 2. Sclerotic lesions in the cervical spine worrisome for bone metastasis. 3. No cervical spine fracture is identified. Chest X-Ray 09/13/22 17:00 IMPRESSION: 1. No acute infiltrate 2. Left 7th rib lesion as seen on prior CT scan. Head CT 09/13/22 17:00 IMPRESSION: 1. Bone metastasis increased from 07/16/2022 2. Atrophy and chronic ischemic changes. 3. No acute intracranial finding 4. Mild sinus disease Chest/Abdomen/Pelvis CT 09/13/22 18:33 IMPRESSION: 1. Increasing bone metastasis consistent with bone metastasis from the patient's known prostate cancer. 2. No acute pulmonary infiltrates. IMPRESSION: 1. Progression of bone metastasis from the patient's known prostate cancer. 2. Prosthetic enlargement not significantly changed. 3. Cholelithiasis 4. Multiple bilateral renal cysts. 5. No acute finding. COMMENTS: Consistent with the [employer]'s Incidental Findings Committee white paper (J [employer]iol 2018): Any incidental renal lesion less than 1 cm or classified as too small to characterize, or any incidental cystic renal lesion characterized as simple-appearing, is likely benign. No follow-up imaging is recommended for these lesions per consensus recommendations based on imaging criteria. Laboratory Results WBC 5.8 10^3/uL (4.0-10.0) 09/14/22 04:23 RBC 3.20 10^6/uL (4.1-5.3) L 09/14/22 04:23 Hgb 10.3 g/dL (11.7-16.6) L 09/14/22 04:23 Hct 31.7 % (42.0-52.0) L 09/14/22 04:23 MCV 99.1 fl (80-94) H 09/14/22 04:23 MCH 32.2 pg (28.0-34.0) 09/14/22 04:23 MCHC 32.5 g/dL (30.0-36.0) 09/14/22 04:23 RDW 18.6 % (12.1-15.1) H 09/14/22 04:23 Plt Count 113 10^3/cmm (130-400) L D 09/14/22 04:23 MPV 9.6 fL (7.4-10.4) 09/14/22 04:23 Neut % (Auto) 82.0 % 09/14/22 04:23 Lymph % (Auto) 11.1 % 09/14/22 04:23 [place] % (Auto) 5.5 % 09/14/22 04:23 Eos % (Auto) 0.5 % 09/14/22 04:23 Baso % (Auto) 0.0 % 09/14/22 04:23 Neut # (Auto) 4.79 10^3/uL (1.8-7.7) 09/14/22 04:23 Lymph # (Auto) 0.7 10^3/uL (0.8-4.8) L 09/14/22 04:23 [place] # (Auto) 0.3 10^3/uL (0.2-0.9) 09/14/22 04:23 Eos # (Auto) 0.0 10^3/uL (0.0-0.8) 09/14/22 04:23 Baso # (Auto) 0.0 10^3/uL (0.0-0.1) 09/14/22 04:23 Nucleated RBC % (auto) 0 % 09/14/22 04: Nucleated RBCs # 0.0 /100WBC 09/14/22 04:23 Sodium 135 mmol/L (136-145) L 09/14/22 04:23 Potassium 3.7 mmol/L (3.5-5.1) 09/14/22 04:23 Chloride 104 mmol/L (98-107) 09/14/22 04:23 Carbon Dioxide 20 mmol/L (22-29) L 09/14/22 04:23 Anion Gap 14.7 (5-19) 09/14/22 04:23 BUN 20 mg/dL (8-23) 09/14/22 04:23 Creatinine 0.6 mg/dL (0.7-1.2) L 09/14/22 04:23 GFR Calculation Not Reportable 09/14/22 04:23 Glucose 66 mg/dL (65-115) 09/14/22 04:23 Calculated Osmolality 281 mOsm/kg (285-295) L 09/14/22 04:23 Lactic Acid 2.8 mmol/L (0.5-2.2) H 09/13/22 17:30 Lactic Acid (Sepsis) 2.1 mmol/L (0.5-2.2) 09/13/22 20:43 Calcium 7.4 mg/dL (8.5-10.5) L 09/14/22 04:23 Total Bilirubin 1.2 mg/dL (0.15-1.2) 09/14/22 04:23 AST 25 U/L (0-40) 09/14/22 04:23 ALT 29 U/L (0-41) 09/14/22 04:23 Alkaline Phosphatase 94 U/L (40-130) 09/14/22 04:23 Troponin T Baseline 40 ng/L (0-15) H 09/13/22 17:30 Troponin T 120 Minute 34.91 ng/L (0-15) H 09/13/22 19:14 Delta Troponin T -5.09 ABS# (0-10) L 09/13/22 19:14 Troponin T Hi Sens 6Hr 37.19 ng/L (0-15) H 09/13/22 22:47 Troponin T Hi Sens 6Hr Delta -2.81 ng/L (0-12) L 09/13/22 22:47 C-Reactive Protein 4.9 mg/L (0.0-4.9) 09/13/22 17:30 NT-Pro-B Natriuret Pep 514 pg/mL (0-450) H 09/13/22 17:30 Total Protein 4.8 g/dL (6.6-8.7) L D 09/14/22 04:23 Albumin 2.6 g/dL (3.5-5.2) L 09/14/22 04:23 Globulin 2.2 g/dL (1.3-4.6) 09/14/22 04:23 Lipase 39 U/L (13-60) 09/13/22 19:14 Procalcitonin 0.09 ng/mL (0-0.5) 09/13/22 17:30 TSH 1.37 uIU/mL (0.27-4.20) 09/13/22 17:30 Urine Color Yellow (Yellow) 09/13/22 20:01 Urine Appearance Clear (CLEAR) 09/13/22 20:01 Urine pH 6.5 (5-7) 09/13/22 20:01 Ur Specific [place] 1.010 (1.005-1.030) 09/13/22 20:01 Urine Protein Neg (Negative) 09/13/22 20: Urine Glucose (UA) Norm (Normal) 10/17/22 20:01 Urine Ketones Negative (Negative) 09/13/22 20:01 Urine Blood Neg (Negative) 09/13/22 20:01 Urine Nitrate Negative (Negative) 09/13/22 20:01 Urine Bilirubin Neg (Negative) 09/13/22 20:01 Urine Urobilinogen Norm mg/dL (Negative) 09/13/22 20:01 Ur Leukocyte Esterase Negative (Negative) 09/13/22 20:01 Vitals Last Vital Signs Temp 97.6 F 09/15/22 08:00 Pulse 57 L 09/15/22 08:00 Resp 15 09/15/22 08:00 BP 163/88 09/15/22 08:00 Pulse Ox 93 09/15/22 08:00 O2 Del Method 09/15/22 08:00 Discharge Plan Discharge Patient Disposition: Hospice - Home Condition: Stable Prescriptions: Continued alprazolam 0.25 mg tablet 0.25 mg PO TID PRN (Reason: Anxiety) Hold Instructions: Doctor's Order magnesium 200 mg tablet 200 mg PO DAILY@0700 Hold Instructions: Doctor's Order aspirin 81 mg Tablet,Delayed Release (Dr/Ec) 81 mg PO DAILY tamsulosin 0.4 mg Capsule 0.4 mg PO DAILY finasteride 5 mg Tablet 5 mg PO DAILY Zyrtec 10 mg Capsule 10 mg PO DAILY Erleada 60 mg Tablet 240 mg PO DAILY citalopram 20 mg Tablet 20 mg PO DAILY Qty: 30 0RF ferrous gluconate 324 mg (37.5 mg iron) Tablet 324 mg PO BIDWM Qty: 60 0RF pantoprazole [Protonix] 40 mg tablet,delayed release (DR/EC) 40 mg PO DAILY 28 Days Qty: 30 0RF metoprolol tartrate 50 mg tablet 25 mg PO DAILY@0700 Qty: 30 0RF Lactobacillus acidophilus 500 million cell Tablet 500 mmu cells PO DAILY temazepam 15 mg capsule 15 - 30 mg PO BEDTIME PRN (Reason: Sleep) Hold Instructions: Doctor's Order bicalutamide 50 mg Tablet 50 mg PO DAILY@0800 Qty: 60 2RF tramadol 50 mg tablet 25 mg PO Q6H PRN (Reason: pain) Qty: 30 2RF Hold Instructions: Doctor's Order methotrexate sodium 2.5 mg tablet 2.5 mg PO DAILY benazepril 40 mg tablet 40 mg PO DAILY Changed dexamethasone 4 mg tablet See Rx Instructions .ROUTE .COMPLEX Qty: 60 0RF Rx Instructions: 4 mg daily for 2 week and subsequently 2 mg daily Discharge Orders: Discharge Order (Routine); Ordered 09/15/22 Ordered By: Patricio Hernandez Discharge Diet: Usual diet Discharge Activity: Resume usual activity Patient Instructions: Opioid Safety Activity Restrictions/Additional Instructions: Home hospice Discharge Attestations Time Spent in Discharge Care*: less than 30 min Specific Discharge Activities: educating patient, discussing with pcp/other providers, discussing with director of casework services/social workers/dc planners, documenting/other paperwork and evaluating patient/reviewing data Status at Discharge: Cognitive status at discharge: mildly impaired cognition, Behavioral status at discharge: cooperative, Functional status at discharge: other assisted ambulation, Overall status at discharge: patient is back to baseline Quality Metrics Clinical Quality Measures [ No reported AMI, CVA or VTE this stay] Coding Level of Care Code Acute Chg FW DC note Diagnoses Dehydration E86.0 Weakness R53.1 Falls W19.XXXA Prostate cancer metastatic to multiple sites C61 Adrenal insufficiency E27.40
[2022-09-15 11:53] VITALS: BP 127/64
[2022-09-15 12:00] VITALS: BP 127/64
--- NOTE | 2022-09-15 12:05 | PC.NURSE ---
Discharge Note Patient discharged to home via private vehicle accompanied by family. Discharge instructions reviewed with patient and/or sales representative. Mobile pharmacy medications and/or prescriptions provided. Belongings/home medications returned.
== END 2022-09-15 12:05 | disposition hospice, home (50) ==
LOC: ER 19:41 → MEDSURG 21:25
PROVIDERS: Admitting Provider Student in an Organized Health Care Education/Training Program; Emergency Provider Emergency Medicine; Visit Provider Student in an Organized Health Care Education/Training Program
DX: E86.0 Dehydration (principal); R53.1 Weakness; C61 Malignant neoplasm of prostate; E27.40 Unspecified adrenocortical insufficiency; Z91.81 History of falling; F41.9 Anxiety disorder, unspecified; K21.9 Gastro-esophageal reflux disease without esophagitis; M06.9 Rheumatoid arthritis, unspecified; I12.9 Hypertensive chronic kidney disease with stage 1 through stage 4 chronic kidney disease, or unspecified chronic kidney disease; N18.9 Chronic kidney disease, unspecified; Z87.891 Personal history of nicotine dependence
CPT/HCPCS: 36415; 70450; 71045; 71260; 72125; 74177; 80053; 81003; 83605; 83690; 83880; 84145; 84443; 84484; 85025; 86140; 87040; 93005; 96360; 96361; 96372; 99285; G0378; J1650; J7030; J8540; J8999; Q9967

== ENCOUNTER 2022-09-23 14:15 | Oncology outpatient (recurring) (ONCR) | payer MEDICARE, SELFPAY ==
[2022-09-06 09:39] LABS: Basophils % 0.1 %; Hematocrit 37.2 % (42.0-52.0); Hemoglobin 12.7 g/dL (11.7-16.6); Lymphocytes # 0.3 10^3/uL (0.8-4.8); Lymphocytes % 2.3 %; Mean Corpuscular HGB Conc 34.1 g/dL (30.0-36.0); Mean Corpuscular Hemoglobin 31.6 pg (28.0-34.0); Mean Corpuscular Volume 92.5 fl (80-94); Mean Platelet Volume 10.5 fL (7.4-10.4); Monocytes # 0.7 10^3/uL (0.2-0.9); Monocytes % 5.3 %; Neutrophils # 12.46 10^3/uL (1.8-7.7); Nucleated Red Blood Cells % 0 %; Platelet Count 130 10^3/cmm (130-400); Red Blood Count 4.02 10^6/uL (4.1-5.3); Red Cell Distribution Width 16.5 % (12.1-15.1); White Blood Count 13.7 10^3/uL (4.0-10.0)
[2022-09-06 10:19] LABS: Alanine Aminotransferase 19 U/L (0-41); Albumin Level 3.4 g/dL (3.5-5.2); Alkaline Phosphatase 121 U/L (40-130); Anion Gap 14.9 (5-19); Aspartate Amino Transferase 18 U/L (0-40); Blood Urea Nitrogen 29 mg/dL (8-23); Calcium 8.6 mg/dL (8.5-10.5); Carbon Dioxide 22 mmol/L (22-29); Chloride 96 mmol/L (98-107); Chol HDL Ratio 2.92 mg/dL (1.0-5.00); Cholesterol 231 mg/dL (0-200); Globulin 2.2 g/dL (1.3-4.6); Glucose 144 mg/dL (65-115); HDL Cholesterol 79 mg/dL (60-100); LDL Cholesterol Calculated 133 mg/dL (50-129); Osmolality Calculated 274 mOsm/kg (285-295); Potassium 4.9 mmol/L (3.5-5.1); Sodium 128 mmol/L (136-145); Thyroid Stimulating Hormone 0.86 uIU/mL (0.27-4.20); Total Protein 5.6 g/dL (6.6-8.7); Triglycerides 97 mg/dL (0-150); VLDL Cholestrol Calculation 19 mg/dL (0-30)
== END 2022-09-27 23:59 | disposition home or self-care (01) ==
PROVIDERS: Nurse Practitioner; PCP Family Medicine; Visit Provider Radiology Radiation Oncology
DX: C61 Malignant neoplasm of prostate (principal)
CPT/HCPCS: 36415; 80053; 80061; 84153; 84443; 85025; 99214; 99215